=== PATIENT | male | born 1965 | race Caucasian/White ===

== ENCOUNTER 2016-03-08 14:21 | Emergency (ER) | payer OTHER ==
[~2016-03-08 14:21] MED LIST: /MOXI40TA PO; ADV250INH INH; ADV500INH INH; ADVA230A INH; ADVA230INH INH; ALBU17IN INH; ALBU20IN INH; ALBU83IN INH; ALBUTEROL NEBS INH; ASMANEX TWISTHALER INH; ASPI1TAB PO; ASPI325T PO; ATOR1TAB18 PO; ATOR80TA14 PO; AUGM500T34 PO; AUGM875T27 PO; AVEL1TAB PO; BACITAB3 PO; BUDEPOW INH; CELE10TA PO; CHAN0.5P6 PO; CITA20TA4 PO; CLAR1TAB2 PO; DOXY150C PO; DOXY75CA3 PO; DULE200A INH; FOLI1TAB86 PO; FURO40TA2 PO; HYDR1TAB97 PO; IBUP200T2 PO; IBUPOTC PO; IPRASOL4 INH; LASI40TA PO; LEVA750T PO; LEVO500T PO; MICR10CA PO; NICO14PA EXT; NICO21PAT TD; NORCOTAB PO; OCEA0.654; OMEP40CA2 PO; PERC5TAB PO; PERCOCET PO; PRED10PA2 PO; PRED10TA PO; PRED10TA2 PO; PRED20TA PO; PRED5SOL2 PO; PRED5TA PO; PRIL40CA PO; SALMDISK INH; TRAM50TA2 PO; TRAZ100T4 PO; TYLE325T5 PO; VENTAER INH; VITA-176 PO; VITA100T2 PO; VITA500047 PO; VITMTA PO; XANA0.5T PO; ZOLO50TA PO; spiriva INH
[2016-03-08 15:11] LABS: BASO # 0.1 K/mm3 (0.0-0.2); BASO % 1.1 % (0.0-1.0); EOS # 0.2 K/mm3 (0.0-0.50); LARGE UNSTAINED CELL # 0.1 K/mm3 (0.0-0.4); LARGE UNSTAINED CELL % 0.7 % (0.0-4.0); LYMPH # 0.9 K/mm3 (1.5-4.5); LYMPH % 6.7 % (24.0-44.0); MEAN CORPUSCULAR HEMOGLOBIN 29.8 pg (27.0-33.0); MEAN CORPUSCULAR HGB CONC 34.6 g/dl (32.0-36.5); MEAN CORPUSCULAR VOLUME 86.1 fl (80.0-96.0); MONO # 0.5 K/mm3 (0.0-0.8); MONO % 4.2 % (0.0-5.0); NEUTROPHILS # 10.2 K/mm3 (1.8-7.7); NEUTROPHILS % 85.2 % (36.0-66.0); PLATELET COUNT, AUTOMATED 151 k/mm3 (150-450); RED CELL DISTRIBUTION WIDTH 13.7 % (11.5-14.5)
[2016-03-08] MEDS ORDERED: ASPIRIN 325 MG TAB As Ordered ONE (15:19)
[2016-03-08 15:20] LABS: ANION GAP 8 MEQ/L (8-16); BLOOD UREA NITROGEN 20 MG/DL (7-18); CALCIUM LEVEL 9.1 MG/DL (8.5-10.1); CARBON DIOXIDE LEVEL 27 MEQ/L (21-32); CHLORIDE LEVEL 109 MEQ/L (98-107); CREATININE FOR GFR 1.08 MG/DL (0.70-1.30); GLOMERULAR FILTRATION RATE > 60.0 (>56); GLUCOSE, FASTING 130 MG/DL (70-105); POTASSIUM SERUM 4.5 MEQ/L (3.5-5.1); SODIUM LEVEL 144 MEQ/L (136-145)
[2016-03-08] MEDS ORDERED: IPRATROPIUM 0.5MG/ALBUTEROL 2.5MG INH SOL UD 3ML (DUONEB)(J7620) As Ordered ONE (15:20)
--- NOTE | 2016-03-08 15:44 | REP ---
Clinical: Shortness of breath . Comparison: 01/08/2016 . Technique: PA and lateral. Findings: The mediastinum and cardiac silhouette are normal. The lung colindres are clear and without acute consolidation, effusion, or pneumothorax. The skeletal structures are intact and normal. Impression: 1. No acute cardiopulmonary process. Signed by Nitesh Escobedo MD 03/08/2016 03:35 P
--- NOTE | 2016-03-08 17:49 | EDDOCDS ---
Physician Documentation [facility] Name: Hussain Cross Age: 51 yrs Sex: Male : 1965 Arrival Date: 03/08/2016 Time: 14:21 Bed 19 Private MD: Disposition: 03/08/16 17:22 Discharged to Home/Self Care. Impression: Nausea and vomiting, Illness, unspecified. - Condition is Stable. - Discharge Instructions: Nausea and Vomiting, Viral Infections. - Prescriptions for Zofran 4 mg Oral Tablet - take 1 tablet by ORAL route 4 times per day As needed; 10 tablet. - Medication Reconciliation, Local Pharmacy Hours form. - Follow up: Private Physician; When: 4 - 5 days; Reason: Recheck today's complaints, Continuance of care. - Problem is an ongoing problem. - Symptoms are unchanged. Historical: - Allergies: pulmicort inhaler (Swelling); - Home Meds: 1. Advair Diskus 250-50 mcg/dose Inhl dsdv 1 puff 2 times per day 2. albuterol sulfate 2.5 mg /3 mL (0.083 %) Inhl nebu 3 mL 4 times per day as needed 3. albuterol sulfate 90 mcg/actuation Inhl aepb 2 puffs every 4 hours as needed 4. atorvastatin 80 mg oral tab 1 tab once daily 5. aspirin 325 mg oral tab 1 tab once daily 6. omeprazole 20 mg Oral TbEC 20 mg daily 7. prednisone 10 mg Oral tab 1 tab once daily 8. [place] 5-325 mg Oral tab 1 tab every 4-6 hours as needed - PMHx: backpain; CHF; COPD; GERD; - PSHx: cardiac loop recorder; left ankle; Arthroscopy, Knee- Left; Arthroscopy, Knee- Right; - Social history: No barriers to communication noted, The patient speaks fluent [place], Smoking status: Patient uses tobacco products, current every day smoker. - Family history: Not pertinent. - : The pt / caregiver states he / she is not on anticoagulants. Home medication list is obtained from the patient. - Exposure Risk Screening:: None identified. Vital Signs: 03/08 14:23 BP 131 / 74; Pulse 57; Resp 28; Temp 97.1; Pulse Ox 100% ; Weight 122.47 kg / 270 lbs sar1 (R); Height 5 ft. 9 in. (175.26 cm) (R); Pain 8/10; 14:31 BP 114 / 71 (auto/); ms2 14:33 Pulse 80 MON; Resp 20 S; Pulse Ox 99% ; ms2 14:46 BP 114 / 74 (auto/); ms2 14:46 Pulse 82 MON; Resp 20 S; Pulse Ox 98% ; ms2 15:21 BP 137 / 70 (auto/); ms2 15:23 Pulse 76 MON; Resp 20 S; Pulse Ox 98% ; ms2 17:46 BP 112 / 61; Pulse 76; Resp 20 S; Temp 98.1(O); Pulse Ox 96% on R/A; ms2 14:23 Body Mass Index 39.87 (122.47 kg, 175.26 cm) sar1 MDM: 14:29 ECG WITH READING ER PHYS+CARDIAG ordered. EDMS 15:01 -Blood Culture (Adults Only), peripheral from different site, or from device/port/PICC ke etc. if present ordered. 15:01 Production Scheduler/Pulse Ox/q 15 min VS ordered. ke 15:01 IV Saline Lock ordered. ke 15:01 Rhythm Strip to chart ordered. ke 15:01 NS 0.9% 1000 ml IV at 100 mL/hr continuous ordered. ke 15:01 Albuterol-Ipratropium 3 ml Inhalation once ordered. ke 15:01 Call Respiratory ordered. ke 15:01 -Blood Culture Ordered. EDMS 15:02 B-Type Natiuretic Peptide Ordered. EDMS 15:02 Basic Metabolic Profile Ordered. EDMS 15:02 CBC with Diff Ordered. EDMS 15:02 Cardiac Injury Profile Ordered. EDMS 15:02 Troponin Ordered. EDMS 15:02 Chest, 2 View (pa\E\lat) Ordered. EDMS 15:04 Aspirin 325 mg PO once ordered. ke 15:15 -Blood Culture (Adults Only), peripheral from different site, or from device/port/PICC deg etc. if present complete. 15:16 Call Respiratory complete. deg 15:16 BLOOD CULTURES Ordered. EDMS 15:30 Financial registration complete. [email or web address] 15:31 [facility] Payment Agreement was scanned into Animating Touch and attached to record. [email or web address] 16:34 Basic Metabolic Profile Reviewed. ke 16:34 CBC with Diff Reviewed. ke 16:34 B-Type Natiuretic Peptide Reviewed. ke 16:34 Cardiac Injury Profile Reviewed. ke 16:34 Troponin Reviewed. ke 16:34 Chest, 2 View (pa\E\lat) Reviewed. ke Administered Medications: 15:10 Drug: Aspirin 325 mg [aspirin 325 mg tablet (1 tabs)] Route: PO; ms2 15:40 Drug: NS 0.9% 1000 ml [sodium chloride 0.9 % intravenous solution] Route: IV; Rate: 100 ms2 mL/hr; Site: right antecubital; 15:43 Drug: Albuterol-Ipratropium 3 ml [ipratropium-albuterol 0.5 mg-3 mg(2.5 mg base)/3 mL rs5 nebulization soln (3 mL)] Route: Inhalation; Signatures: Dispatcher MedHost EDMS Diana Ayala, Stoneworking Sander Unit deg Raman LeongRN RN ms2 Tab Garcia, SERVICE ASSOCIATE SERVICE ASSOCIATE Hussain Rock RN RN mlb1 Melida Henao, Reg Reg ks16 Jewel Cervantes RT rs5 The chart was reviewed and I authenticate all verbal orders and agree with the evaluation and treatment provided.Corrections: (The following items were deleted from the chart) 15:59 15:02 ARTERIAL BLOOD GAS+LAB ordered. EDMS EDMS 17:13 15:01 Oxygen at 4L/Min NC or Home dosage ordered. ms2 Attachments: 15:31 [facility] Payment Agreement ks16 MTDD
--- NOTE | 2016-03-08 17:49 | EDDOCDS ---
Nurse's Notes [facility] Name: Hussain Cross Age: 51 yrs Sex: Male : 1965 Arrival Date: 03/08/2016 Time: 14:21 Bed 19 Private MD: Diagnosis: Nausea and vomiting;Illness, unspecified Presentation: 03/08 14:27 Presenting complaint: Patient states: Chest pressure and SOB began at 1000 this am, mlb1 reports not feeling well for the past couple days with N/V/D. Adult Sepsis Screening: The patient does not have new or worsening altered mentation. Patient has a respiratory rate of greater than or equal to 22 (1 point). Systolic blood pressure is greater than 100. Patient has a qSOFA score of 1- Negative Sepsis Screen. Suicide/Homicide risk assessment- the patient denies having any suicidal and/or homicidal ideations and does not present with any other emotional, behavioral or mental health complaints. Status: Patient is not a patient services manager or dependent. Transition of care: patient was not received from another setting of care. Red Flag criteria, patient assessed and taken directly to a bed. 14:27 Acuity: MARCELA Level 2 mlb1 14:27 Method Of Arrival: Walkin/Carried/Asstd mlb1 Triage Assessment: 14:33 General: Appears distressed, Behavior is appropriate for age, cooperative. Pain: mlb1 Location: chest Pain currently is 8 out of 10 on a pain scale. Quality of pain is described as pressure. HIV screening NA for this visit Offered previously. Respiratory: Onset: The symptoms/episode began/occurred gradually, Airway is patent Respiratory effort is labored. Historical: - Allergies: pulmicort inhaler (Swelling); - Home Meds: 1. Advair Diskus 250-50 mcg/dose Inhl dsdv 1 puff 2 times per day 2. albuterol sulfate 2.5 mg /3 mL (0.083 %) Inhl nebu 3 mL 4 times per day as needed 3. albuterol sulfate 90 mcg/actuation Inhl aepb 2 puffs every 4 hours as needed 4. atorvastatin 80 mg oral tab 1 tab once daily 5. aspirin 325 mg oral tab 1 tab once daily 6. omeprazole 20 mg Oral TbEC 20 mg daily 7. prednisone 10 mg Oral tab 1 tab once daily 8. [place] 5-325 mg Oral tab 1 tab every 4-6 hours as needed - PMHx: backpain; CHF; COPD; GERD; - PSHx: cardiac loop recorder; left ankle; Arthroscopy, Knee- Left; Arthroscopy, Knee- Right; - Social history: No barriers to communication noted, The patient speaks fluent Canadian, Smoking status: Patient uses tobacco products, current every day smoker. - Family history: Not pertinent. - : The pt / caregiver states he / she is not on anticoagulants. Home medication list is obtained from the patient. - Exposure Risk Screening:: None identified. Screenin:14 Screening information is obtained from prior medical records. Fall risk: No risks ms2 identified. Assistance ADL's: requires no assistance with activities of daily living. Abuse/DV Screen: The patient / caregiver reports he/she is: not in a situation that causes fear, pain or injury. Nutritional screening: No deficits noted. Advance Directives: Currently, there is no health care proxy. There is no active DNR order. There is no living will. There is no Power of Tree Feller Operator. Advance directive information has not previously been placed in an [facility] medical record. Further advance directive information is declined. home support is adequate. Assessment: 15:00 General: Appears in no apparent distress, Behavior is anxious, pt hyperventilating ms2 -forcing air out thru mouth---nasally congested. Neurological: Level of Consciousness is awake, alert, obeys commands. Cardiovascular: Rhythm is sinus rhythm No ectopy. Respiratory: Airway is patent Respiratory effort is even, see above note harsh breath sounds bilaterally. GI: Abdomen is distended, obese. Derm: Skin is pink, warm & dry. Musculoskeletal: Range of motion intact in all extremities. 15:55 General: Appears in no apparent distress, pt lying on left side -nasally congested ms2 hyperventilating---pt instructed if he sits up higher it will assist in breathing easier. 16:20 General: Appears in no apparent distress, pt calm/relaxed and watching tv-breathing ms2 easy. Neurological: No deficits noted. Respiratory: No deficits noted. Derm: Skin is pink, warm & dry. Musculoskeletal: No deficits noted. 17:45 Adult Sepsis Screening: The patient does not have new or worsening altered mentation. ms2 Patient's respiratory rate is less than 22. Systolic blood pressure is greater than 100. Patient has a qSOFA score of 0- Negative Sepsis Screen. General: Appears in no apparent distress. Neurological: No deficits noted. Cardiovascular: Rhythm is sinus rhythm No ectopy. monitor will not print off strip--see previous strip. Respiratory: Respiratory effort is even, unlabored. Derm: Skin is pink, warm & dry. Musculoskeletal: No deficits noted. Vital Signs: 14:23 BP 131 / 74; Pulse 57; Resp 28; Temp 97.1; Pulse Ox 100% ; Weight 122.47 kg (R); Height sar1 5 ft. 9 in. (175.26 cm) (R); Pain 8/10; 14:31 BP 114 / 71 (auto/); ms2 14:33 Pulse 80 MON; Resp 20 S; Pulse Ox 99% ; ms2 14:46 BP 114 / 74 (auto/); ms2 14:46 Pulse 82 MON; Resp 20 S; Pulse Ox 98% ; ms2 15:21 BP 137 / 70 (auto/); ms2 15:23 Pulse 76 MON; Resp 20 S; Pulse Ox 98% ; ms2 17:46 BP 112 / 61; Pulse 76; Resp 20 S; Temp 98.1(O); Pulse Ox 96% on R/A; ms2 14:23 Body Mass Index 39.87 (122.47 kg, 175.26 cm) sar1 Vitals: 14:23 Log In Time: March 08, 2016 at 14:23. RN notified that patient meets Red Flag sar1 criteria. ED Course: 14:22 Patient visited by Sandie Combs Unit Clerk. sar1 14:22 Patient moved to Waiting sar1 14:25 Raman Leong,RN is Primary Nurse. sar1 14:25 Patient moved to 19 sar1 14:27 Patient visited by Hussain Ma, KAMILLE. mlb1 14:28 Triage Initiated mlb1 14:32 Patient visited by Raman Leong,KAMILLE. ms2 14:34 Patient visited by Hussain Ma, KAMILLE. mlb1 14:38 Tba Garcia FNP [facility]. ke 14:38 Patient visited by Tab Garcia FNP. ke 14:38 Patient visited by Tab Garcia FNP. ke 14:43 Patient visited by Ata Cool PCA. jrd 14:43 EKG done. (by ED staff). Reviewed by Tab ALAN. jrd 15:00 The patient / caregiver is instructed regarding the plan of care and ED course. Cardiac ms2 monitor on. Pulse ox on. NIBP on. 15:00 Inserted saline lock: 20 gauge in right antecubital area The patient tolerated the ms2 procedure well. No procedures done that require assistance. 15:06 Patient visited by Raman Leong,KAMILLE. ms2 15:31 [facility] Payment Agreement was scanned into MedShape and attached to record. ks16 15:35 Patient visited by Tab Garcia FNP. ke 15:50 BLOOD CULTURES Sent. ms2 15:56 Patient visited by Tab Garcia FNP. ke 16:01 Chest, 2 View (pa\E\lat) Returned. EDMS 16:20 Patient visited by Hakeem Bejarano PCA. jlf 16:51 Patient visited by Tab Garcia FNP. ke 17:21 Patient visited by Hakeem Bejarano PCA. jlf 17:32 Patient visited by Raman Leong,KAMILLE. ms2 17:43 Patient visited by Raman Leong RN. ms2 17:46 The patient / caregiver is instructed regarding the plan of care and ED course. monitor ms2 dc'd. 17:47 Discontinued IV intact, bleeding controlled, pressure dressing applied, No ms2 redness/swelling at site. Administered Medications: 15:10 Drug: Aspirin 325 mg [aspirin 325 mg tablet (1 tabs)] Route: PO; ms2 15:40 Drug: NS 0.9% 1000 ml [sodium chloride 0.9 % intravenous solution] Route: IV; Rate: 100 ms2 mL/hr; Site: right antecubital; 15:43 Drug: Albuterol-Ipratropium 3 ml [ipratropium-albuterol 0.5 mg-3 mg(2.5 mg base)/3 mL rs5 nebulization soln (3 mL)] Route: Inhalation; Intake: 17:44 PO: 60.00ml; IV: 200.00ml (NS); Total: 260.00ml. ms2 17:44 voided x1 in ed ms2 RT: 15:43 ABG's Patient Refused ABG. Initial Med Neb Given as ordered Patient was instructed and rs5 evaluated on procedure Patient tolerated procedure well without adverse effect. Respiratory: Breath sounds with wheezes bilaterally. Order Results: Lab Order: B-Type Natiuretic Peptide; SPEC'M 03/08/16 14:45 Test: BRAIN NATRIURETIC PEPTIDE; Value: 16.7; Range: <100; Units: PG/ML; Status: F Lab Order: Basic Metabolic Profile; SPEC'M 03/08/16 14:45 Test: GLUCOSE, FASTING; Value: 130; Range: 70-105; Abnormal: Above high normal; Units: MG/DL; Status: F Test: BLOOD UREA NITROGEN; Value: 20; Range: 7-18; Abnormal: Above high normal; Units: MG/DL; Status: F Test: CREATININE FOR GFR; Value: 1.08; Range: 0.70-1.30; Units: MG/DL; Status: F Test: GLOMERULAR FILTRATION RATE; Value: > 60.0; Range: >56; Status: F Test: SODIUM LEVEL; Value: 144; Range: 136-145; Units: MEQ/L; Status: F Test: POTASSIUM SERUM; Value: 4.5; Range: 3.5-5.1; Units: MEQ/L; Status: F Test: CHLORIDE LEVEL; Value: 109; Range: 98-107; Abnormal: Above high normal; Units: MEQ/L; Status: F Test: CARBON DIOXIDE LEVEL; Value: 27; Range: 21-32; Units: MEQ/L; Status: F Test: ANION GAP; Value: 8; Range: 8-16; Units: MEQ/L; Status: F Test: CALCIUM LEVEL; Value: 9.1; Range: 8.5-10.1; Units: MG/DL; Status: F Test Note: ; Units are mL/min/1.73 m2 Chronic Kidney Disease Staging per NKF: Stage I & II GFR >=60 Normal to Mildly Decreased Stage III GFR 30-59 Moderately Decreased Stage IV GFR 15-29 Severely Decreased Stage V GFR <15 Very Little GFR Left ESRD GFR <15 on EXERCISE INSTRUCT Lab Order: CBC with Diff; SPEC'M 03/08/16 14:45 Test: WHITE BLOOD COUNT; Value: 12.0; Range: 4.0-10.0; Abnormal: Above high normal; Units: K/mm3; Status: F Test: RED BLOOD COUNT; Value: 5.30; Range: 4.30-6.10; Units: M/mm3; Status: F Test: HEMOGLOBIN; Value: 15.8; Range: 14.0-18.0; Units: g/dl; Status: F Test: HEMATOCRIT; Value: 45.6; Range: 42.0-52.0; Units: %; Status: F Test: MEAN CORPUSCULAR VOLUME; Value: 86.1; Range: 80.0-96.0; Units: fl; Status: F Test: MEAN CORPUSCULAR HEMOGLOBIN; Value: 29.8; Range: 27.0-33.0; Units: pg; Status: F Test: MEAN CORPUSCULAR HGB CONC; Value: 34.6; Range: 32.0-36.5; Units: g/dl; Status: F Test: RED CELL DISTRIBUTION WIDTH; Value: 13.7; Range: 11.5-14.5; Units: %; Status: F Test: PLATELET COUNT, AUTOMATED; Value: 151; Range: 150-450; Units: k/mm3; Status: F Test: NEUTROPHILS %; Value: 85.2; Range: 36.0-66.0; Abnormal: Above high normal; Units: %; Status: F Test: LYMPH %; Value: 6.7; Range: 24.0-44.0; Abnormal: Below low normal; Units: %; Status: F Test: MONO %; Value: 4.2; Range: 0.0-5.0; Units: %; Status: F Test: EOS %; Value: 2.0; Range: 0.0-3.0; Units: %; Status: F Test: BASO %; Value: 1.1; Range: 0.0-1.0; Abnormal: Above high normal; Units: %; Status: F Test: LARGE UNSTAINED CELL %; Value: 0.7; Range: 0.0-4.0; Units: %; Status: F Test: NEUTROPHILS #; Value: 10.2; Range: 1.8-7.7; Abnormal: Above high normal; Units: K/mm3; Status: F Test: LYMPH #; Value: 0.9; Range: 1.5-4.5; Abnormal: Below low normal; Units: K/mm3; Status: F Test: MONO #; Value: 0.5; Range: 0.0-0.8; Units: K/mm3; Status: F Test: EOS #; Value: 0.2; Range: 0.0-0.50; Units: K/mm3; Status: F Test: BASO #; Value: 0.1; Range: 0.0-0.2; Units: K/mm3; Status: F Test: LARGE UNSTAINED CELL #; Value: 0.1; Range: 0.0-0.4; Units: K/mm3; Status: F Lab Order: Cardiac Injury Profile; SPEC'M 03/08/16 14:45 Test: CPK CREATINE PHOSPHOKINASE; Value: 130; Range: 39-308; Units: U/L; Status: F Test: CK-MB VALUE MASS; Value: 1.0; Range: 0.0-3.6; Units: NG/ML; Status: F Test: MB/CK RELATIVE INDEX; Value: 0.76; Range: < OR =4; Status: F Test Note: ; DIAGNOSIS CRITERIA MMB ng/ml Relative Index (RI) NON-AMI < or = 5 N/A TENA ZONE > 5 < or = 4 AMI > 5 > 4 Lab Order: Troponin; SPEC'M 03/08/16 14:45 Test: TROPONIN I; Value: < 0.02; Range: < 0.10; Units: NG/ML; Status: F Test Note: ; Troponin I Reference Interval for [employer] LOCI: 99th Percentile= 0.00-0.045 ng/ml Risk Stratification: <= 0.10 ng/ml Decreased Risk for Adverse Clinical Events. 0.10-1.50 ng/ml Increased Risk for Adverse Clinical Events. Evaluation of additional criterion and/or repeat testing in 2-6 hours is suggested to rule out myocardial damage. >= 1.50 ng/ml Indicative of Myocardial Injury. Radiology Order: Chest, 2 View (pa\E\lat) Test: Chest, 2 View (pa\E\lat) REASON FOR EXAMINATION: Shortness of Breath; Clinical: Shortness of breath .; ; Comparison: 01/08/2016 .; ; Technique: PA and lateral.; ; Findings:; The mediastinum and cardiac silhouette are normal. The lung colindres are clear and; without acute consolidation, effusion, or pneumothorax. The skeletal structures; are intact and normal.; ; Impression:; 1. No acute cardiopulmonary process.; ; ; Signed by; Nitesh Escobedo MD 03/08/2016 03:35 P; Outcome: 17:22 Discharge ordered by Provider. chayo 17:47 Discharge Assessment: patient administered narcotics - no. The following High Risk ms2 Discharge criteria are identified: None. Discharged to home ambulatory. Condition: stable. Discharge instructions given to patient, Instructed on discharge instructions, follow up and referral plans. medication usage, Demonstrated understanding of instructions, medications, Pt was receptive of discharge instructions/ teaching. Prescriptions given X one faxed. No special radiology studies were completed. Property sent home with patient. 17:48 Patient left the ED. ms2 Signatures: Dispatcher MedHost EDMS Raman Leong,RN RN ms2 Tab Garcia, DIRECTOR SECURITY MANAGEMENT DIRECTOR SECURITY MANAGEMENT Hussain Rock RN RN mlb1 Jewel Cervantes,RT RT rs5 Hakeem Bejarano, HOSPITAL INTERN HOSPITAL INTERN Sandie Clarke, Motion Picture Photographer Unit sarAta Haile, HOSPITAL INTERN HOSPITAL INTERN Melida Ruiz, Reg Reg [email or web address] MTDD
--- NOTE | 2016-03-09 10:02 | ECGEPIP ---
Stationary ECG Study [facility] - ED Test Date: 2016-03-08 Pat Name: STEPH MCKEON Department: Room: - Gender: M Certified Wellness Program Coordinator: vivian : 1965 Requested By: Soumya Cohn Order Number: [id number] Reading MD: Soumya Cohn Measurements Intervals [place] Rate: 86 P: 37 WI: 165 QRS: 54 QRSD: 82 T: 44 QT: 353 QTc: 424 Interpretive Statements SINUS RHYTHM NSTTW ABNORMALITY VS BASELINE ARTIFACT Electronically Signed On 03-09-2016 10:01:45 EST by Soumya Cohn
--- NOTE | 2016-03-10 18:49 | EDDOCDS ---
Physician Documentation [facility] Name: Hussain Cross Age: 51 yrs Sex: Male : 1965 Arrival Date: 03/08/2016 Time: 14:21 Bed 19 Private MD: Disposition: 03/08/16 17:22 Discharged to Home/Self Care. Impression: Nausea and vomiting, Illness, unspecified. - Condition is Stable. - Discharge Instructions: Nausea and Vomiting, Viral Infections. - Prescriptions for Zofran 4 mg Oral Tablet - take 1 tablet by ORAL route 4 times per day As needed; 10 tablet. - Medication Reconciliation, Local Pharmacy Hours form. - Follow up: Private Physician; When: 4 - 5 days; Reason: Recheck today's complaints, Continuance of care. - Problem is an ongoing problem. - Symptoms are unchanged. Historical: - Allergies: pulmicort inhaler (Swelling); - Home Meds: 1. Advair Diskus 250-50 mcg/dose Inhl dsdv 1 puff 2 times per day 2. albuterol sulfate 2.5 mg /3 mL (0.083 %) Inhl nebu 3 mL 4 times per day as needed 3. albuterol sulfate 90 mcg/actuation Inhl aepb 2 puffs every 4 hours as needed 4. atorvastatin 80 mg oral tab 1 tab once daily 5. aspirin 325 mg oral tab 1 tab once daily 6. omeprazole 20 mg Oral TbEC 20 mg daily 7. prednisone 10 mg Oral tab 1 tab once daily 8. [place] 5-325 mg Oral tab 1 tab every 4-6 hours as needed - PMHx: backpain; CHF; COPD; GERD; - PSHx: cardiac loop recorder; left ankle; Arthroscopy, Knee- Left; Arthroscopy, Knee- Right; - Social history: No barriers to communication noted, The patient speaks fluent Stateless, Smoking status: Patient uses tobacco products, current every day smoker. - Family history: Not pertinent. - : The pt / caregiver states he / she is not on anticoagulants. Home medication list is obtained from the patient. - Exposure Risk Screening:: None identified. Vital Signs: 03/08 14:23 BP 131 / 74; Pulse 57; Resp 28; Temp 97.1; Pulse Ox 100% ; Weight 122.47 kg / 270 lbs sar1 (R); Height 5 ft. 9 in. (175.26 cm) (R); Pain 8/10; 14:31 BP 114 / 71 (auto/); ms2 14:33 Pulse 80 MON; Resp 20 S; Pulse Ox 99% ; ms2 14:46 BP 114 / 74 (auto/); ms2 14:46 Pulse 82 MON; Resp 20 S; Pulse Ox 98% ; ms2 15:21 BP 137 / 70 (auto/); ms2 15:23 Pulse 76 MON; Resp 20 S; Pulse Ox 98% ; ms2 17:46 BP 112 / 61; Pulse 76; Resp 20 S; Temp 98.1(O); Pulse Ox 96% on R/A; ms2 14:23 Body Mass Index 39.87 (122.47 kg, 175.26 cm) sar1 MDM: 14:29 ECG WITH READING ER PHYS+CARDIAG ordered. EDMS 15:01 -Blood Culture (Adults Only), peripheral from different site, or from device/port/PICC ke etc. if present ordered. 15:01 Director Of Human Resources/Pulse Ox/q 15 min VS ordered. ke 15:01 IV Saline Lock ordered. ke 15:01 Rhythm Strip to chart ordered. ke 15:01 NS 0.9% 1000 ml IV at 100 mL/hr continuous ordered. ke 15:01 Albuterol-Ipratropium 3 ml Inhalation once ordered. ke 15:01 Call Respiratory ordered. ke 15:01 -Blood Culture Ordered. EDMS 15:02 B-Type Natiuretic Peptide Ordered. EDMS 15:02 Basic Metabolic Profile Ordered. EDMS 15:02 CBC with Diff Ordered. EDMS 15:02 Cardiac Injury Profile Ordered. EDMS 15:02 Troponin Ordered. EDMS 15:02 Chest, 2 View (pa\E\lat) Ordered. EDMS 15:04 Aspirin 325 mg PO once ordered. ke 15:15 -Blood Culture (Adults Only), peripheral from different site, or from device/port/PICC deg etc. if present complete. 15:16 Call Respiratory complete. deg 15:16 BLOOD CULTURES Ordered. EDMS 15:30 Financial registration complete. [email or web address] 15:31 [facility] Payment Agreement was scanned into CitiSent and attached to record. [email or web address] 16:34 Basic Metabolic Profile Reviewed. ke 16:34 CBC with Diff Reviewed. ke 16:34 B-Type Natiuretic Peptide Reviewed. ke 16:34 Cardiac Injury Profile Reviewed. ke 16:34 Troponin Reviewed. ke 16:34 Chest, 2 View (pa\E\lat) Reviewed. 03/09 06:36 T-Sheet-- Draft Copy was scanned into CitiSent and attached to record. hs2 10:44 ECG/EKG was scanned into [employer]ooo[employer] and attached to record. gb 10:45 Trend VS was scanned into MEDHOST and attached to record. gb Administered Medications: 03/08 15:10 Drug: Aspirin 325 mg [aspirin 325 mg tablet (1 tabs)] Route: PO; ms2 15:40 Drug: NS 0.9% 1000 ml [sodium chloride 0.9 % intravenous solution] Route: IV; Rate: 100 ms2 mL/hr; Site: right antecubital; 15:43 Drug: Albuterol-Ipratropium 3 ml [ipratropium-albuterol 0.5 mg-3 mg(2.5 mg base)/3 mL rs5 nebulization soln (3 mL)] Route: Inhalation; Signatures: Dispatcher MedHost EDDiana Sanches, [place] Pumper Unit deg Raman Leong RN RN ms2 Darling Valero, Reg Reg gb Tab Garcia, PROFESSOR OF SPORT MANAGEMENT PROFESSOR OF SPORT MANAGEMENT Hussain Rock RN RN mlb1 Melida Henao, Reg Reg ks16 Lydia Camacho, Reg Reg hs2 Jewel Cervantes RT rs5 The chart was reviewed and I authenticate all verbal orders and agree with the evaluation and treatment provided.Corrections: (The following items were deleted from the chart) 15:59 15:02 ARTERIAL BLOOD GAS+LAB ordered. EDMS EDMS 17:13 15:01 Oxygen at 4L/Min NC or Home dosage ordered. ms2 Attachments: 15:31 [facility] Payment Agreement [email or web address] 03/09 06:36 T-Sheet-- Draft Copy hs2 10:44 ECG/EKG gb Chart Complete MTDD
--- NOTE | 2016-03-10 18:49 | EDDOCDS ---
Nurse's Notes [facility] Name: Hussain Mckeon Age: 51 yrs Sex: Male : 1965 Arrival Date: 03/08/2016 Time: 14:21 Bed 19 Private MD: Diagnosis: Nausea and vomiting;Illness, unspecified Presentation: 03/08 14:27 Presenting complaint: Patient states: Chest pressure and SOB began at 1000 this am, mlb1 reports not feeling well for the past couple days with N/V/D. Adult Sepsis Screening: The patient does not have new or worsening altered mentation. Patient has a respiratory rate of greater than or equal to 22 (1 point). Systolic blood pressure is greater than 100. Patient has a qSOFA score of 1- Negative Sepsis Screen. Suicide/Homicide risk assessment- the patient denies having any suicidal and/or homicidal ideations and does not present with any other emotional, behavioral or mental health complaints. Status: Patient is not a data services developer or dependent. Transition of care: patient was not received from another setting of care. Red Flag criteria, patient assessed and taken directly to a bed. 14:27 Acuity: MARCELA Level 2 mlb1 14:27 Method Of Arrival: Walkin/Carried/Asstd mlb1 Triage Assessment: 14:33 General: Appears distressed, Behavior is appropriate for age, cooperative. Pain: mlb1 Location: chest Pain currently is 8 out of 10 on a pain scale. Quality of pain is described as pressure. HIV screening NA for this visit Offered previously. Respiratory: Onset: The symptoms/episode began/occurred gradually, Airway is patent Respiratory effort is labored. Historical: - Allergies: pulmicort inhaler (Swelling); - Home Meds: 1. Advair Diskus 250-50 mcg/dose Inhl dsdv 1 puff 2 times per day 2. albuterol sulfate 2.5 mg /3 mL (0.083 %) Inhl nebu 3 mL 4 times per day as needed 3. albuterol sulfate 90 mcg/actuation Inhl aepb 2 puffs every 4 hours as needed 4. atorvastatin 80 mg oral tab 1 tab once daily 5. aspirin 325 mg oral tab 1 tab once daily 6. omeprazole 20 mg Oral TbEC 20 mg daily 7. prednisone 10 mg Oral tab 1 tab once daily 8. [place] 5-325 mg Oral tab 1 tab every 4-6 hours as needed - PMHx: backpain; CHF; COPD; GERD; - PSHx: cardiac loop recorder; left ankle; Arthroscopy, Knee- Left; Arthroscopy, Knee- Right; - Social history: No barriers to communication noted, The patient speaks fluent Jamaican, Smoking status: Patient uses tobacco products, current every day smoker. - Family history: Not pertinent. - : The pt / caregiver states he / she is not on anticoagulants. Home medication list is obtained from the patient. - Exposure Risk Screening:: None identified. Screenin:14 Screening information is obtained from prior medical records. Fall risk: No risks ms2 identified. Assistance ADL's: requires no assistance with activities of daily living. Abuse/DV Screen: The patient / caregiver reports he/she is: not in a situation that causes fear, pain or injury. Nutritional screening: No deficits noted. Advance Directives: Currently, there is no health care proxy. There is no active DNR order. There is no living will. There is no Power of Training And Development Manager. Advance directive information has not previously been placed in an [facility] medical record. Further advance directive information is declined. home support is adequate. Assessment: 15:00 General: Appears in no apparent distress, Behavior is anxious, pt hyperventilating ms2 -forcing air out thru mouth---nasally congested. Neurological: Level of Consciousness is awake, alert, obeys commands. Cardiovascular: Rhythm is sinus rhythm No ectopy. Respiratory: Airway is patent Respiratory effort is even, see above note harsh breath sounds bilaterally. GI: Abdomen is distended, obese. Derm: Skin is pink, warm & dry. Musculoskeletal: Range of motion intact in all extremities. 15:55 General: Appears in no apparent distress, pt lying on left side -nasally congested ms2 hyperventilating---pt instructed if he sits up higher it will assist in breathing easier. 16:20 General: Appears in no apparent distress, pt calm/relaxed and watching tv-breathing ms2 easy. Neurological: No deficits noted. Respiratory: No deficits noted. Derm: Skin is pink, warm & dry. Musculoskeletal: No deficits noted. 17:45 Adult Sepsis Screening: The patient does not have new or worsening altered mentation. ms2 Patient's respiratory rate is less than 22. Systolic blood pressure is greater than 100. Patient has a qSOFA score of 0- Negative Sepsis Screen. General: Appears in no apparent distress. Neurological: No deficits noted. Cardiovascular: Rhythm is sinus rhythm No ectopy. monitor will not print off strip--see previous strip. Respiratory: Respiratory effort is even, unlabored. Derm: Skin is pink, warm & dry. Musculoskeletal: No deficits noted. Vital Signs: 14:23 BP 131 / 74; Pulse 57; Resp 28; Temp 97.1; Pulse Ox 100% ; Weight 122.47 kg (R); Height sar1 5 ft. 9 in. (175.26 cm) (R); Pain 8/10; 14:31 BP 114 / 71 (auto/); ms2 14:33 Pulse 80 MON; Resp 20 S; Pulse Ox 99% ; ms2 14:46 BP 114 / 74 (auto/); ms2 14:46 Pulse 82 MON; Resp 20 S; Pulse Ox 98% ; ms2 15:21 BP 137 / 70 (auto/); ms2 15:23 Pulse 76 MON; Resp 20 S; Pulse Ox 98% ; ms2 17:46 BP 112 / 61; Pulse 76; Resp 20 S; Temp 98.1(O); Pulse Ox 96% on R/A; ms2 14:23 Body Mass Index 39.87 (122.47 kg, 175.26 cm) sar1 Vitals: 14:23 Log In Time: March 08, 2016 at 14:23. RN notified that patient meets Red Flag sar1 criteria. ED Course: 14:22 Patient visited by Sandie Combs Unit Clerk. sar1 14:22 Patient moved to Waiting sar1 14:25 Raman Leong,RN is Primary Nurse. sar1 14:25 Patient moved to 19 sar1 14:27 Patient visited by Hussain Ma, KAMILLE. mlb1 14:28 Triage Initiated mlb1 14:32 Patient visited by Raman Leong,KAMILLE. ms2 14:34 Patient visited by Hussain Ma, KAMILLE. mlb1 14:38 [facility]. ke 14:38 Patient visited by Tab Garcia FNP. ke 14:38 Patient visited by Tab Garcia FNP. ke 14:43 Patient visited by Ata Cool PCA. jrd 14:43 EKG done. (by ED staff). Reviewed by Tab ALAN. jrd 15:00 The patient / caregiver is instructed regarding the plan of care and ED course. Cardiac ms2 monitor on. Pulse ox on. NIBP on. 15:00 Inserted saline lock: 20 gauge in right antecubital area The patient tolerated the ms2 procedure well. No procedures done that require assistance. 15:06 Patient visited by Raman Leong,KAMILLE. ms2 15:31 [facility] Payment Agreement was scanned into [employer] and attached to record. ks16 15:35 Patient visited by Tab Garcia FNP. ke 15:50 BLOOD CULTURES Sent. ms2 15:56 Patient visited by Tab Garcia FNP. ke 16:01 Chest, 2 View (pa\E\lat) Returned. EDMS 16:20 Patient visited by Hakeem Bejarano PCA. jlf 16:51 Patient visited by Tab Garcia FNP. ke 17:21 Patient visited by Hakeem Bejarano PCA. jlf 17:32 Patient visited by Raman Leong,KAMILLE. ms2 17:43 Patient visited by Raman Leong,KAMILLE. ms2 17:46 The patient / caregiver is instructed regarding the plan of care and ED course. monitor ms2 dc'd. 17:47 Discontinued IV intact, bleeding controlled, pressure dressing applied, No ms2 redness/swelling at site. 03/09 06:36 T-Sheet-- Draft Copy was scanned into [employer] and attached to record. hs2 10:20 EKG-ADULT Returned. EDMS 10:44 ECG/EKG was scanned into [employer] and attached to record. gb 10:45 Trend VS was scanned into [employer] and attached to record. gb Administered Medications: 03/08 15:10 Drug: Aspirin 325 mg [aspirin 325 mg tablet (1 tabs)] Route: PO; ms2 15:40 Drug: NS 0.9% 1000 ml [sodium chloride 0.9 % intravenous solution] Route: IV; Rate: 100 ms2 mL/hr; Site: right antecubital; 15:43 Drug: Albuterol-Ipratropium 3 ml [ipratropium-albuterol 0.5 mg-3 mg(2.5 mg base)/3 mL rs5 nebulization soln (3 mL)] Route: Inhalation; Attachments: 10:45 Trend VS gb Intake: 03/08 17:44 PO: 60.00ml; IV: 200.00ml (NS); Total: 260.00ml. ms2 17:44 voided x1 in ed ms2 RT: 15:43 ABG's Patient Refused ABG. Initial Med Neb Given as ordered Patient was instructed and rs5 evaluated on procedure Patient tolerated procedure well without adverse effect. Respiratory: Breath sounds with wheezes bilaterally. Order Results: Lab Order: -Blood Culture; SPEC'M 03/08/16 15:28 Test: BLOOD CULTURE; Value: No growth after 24 hours . All specimens observed; Status: F Test: BLOOD CULTURE; Value: for 5 days. Results final at that time.; Status: F Test: BLOOD CULTURE; Value: No Growth after 48 hours. All Specimens observed; Status: F Test: BLOOD CULTURE; Value: for 7 days. Results final at that time.; Status: F Lab Order: B-Type Natiuretic Peptide; SPEC'M 03/08/16 14:45 Test: BRAIN NATRIURETIC PEPTIDE; Value: 16.7; Range: <100; Units: PG/ML; Status: F Lab Order: Basic Metabolic Profile; SPEC'M 03/08/16 14:45 Test: GLUCOSE, FASTING; Value: 130; Range: 70-105; Abnormal: Above high normal; Units: MG/DL; Status: F Test: BLOOD UREA NITROGEN; Value: 20; Range: 7-18; Abnormal: Above high normal; Units: MG/DL; Status: F Test: CREATININE FOR GFR; Value: 1.08; Range: 0.70-1.30; Units: MG/DL; Status: F Test: GLOMERULAR FILTRATION RATE; Value: > 60.0; Range: >56; Status: F Test: SODIUM LEVEL; Value: 144; Range: 136-145; Units: MEQ/L; Status: F Test: POTASSIUM SERUM; Value: 4.5; Range: 3.5-5.1; Units: MEQ/L; Status: F Test: CHLORIDE LEVEL; Value: 109; Range: 98-107; Abnormal: Above high normal; Units: MEQ/L; Status: F Test: CARBON DIOXIDE LEVEL; Value: 27; Range: 21-32; Units: MEQ/L; Status: F Test: ANION GAP; Value: 8; Range: 8-16; Units: MEQ/L; Status: F Test: CALCIUM LEVEL; Value: 9.1; Range: 8.5-10.1; Units: MG/DL; Status: F Test Note: ; Units are mL/min/1.73 m2 Chronic Kidney Disease Staging per NKF: Stage I & II GFR >=60 Normal to Mildly Decreased Stage III GFR 30-59 Moderately Decreased Stage IV GFR 15-29 Severely Decreased Stage V GFR <15 Very Little GFR Left ESRD GFR <15 on [employer]ANCH[employer] FIELD CONSULTANT Lab Order: CBC with Diff; SPEC'M 03/08/16 14:45 Test: WHITE BLOOD COUNT; Value: 12.0; Range: 4.0-10.0; Abnormal: Above high normal; Units: K/mm3; Status: F Test: RED BLOOD COUNT; Value: 5.30; Range: 4.30-6.10; Units: M/mm3; Status: F Test: HEMOGLOBIN; Value: 15.8; Range: 14.0-18.0; Units: g/dl; Status: F Test: HEMATOCRIT; Value: 45.6; Range: 42.0-52.0; Units: %; Status: F Test: MEAN CORPUSCULAR VOLUME; Value: 86.1; Range: 80.0-96.0; Units: fl; Status: F Test: MEAN CORPUSCULAR HEMOGLOBIN; Value: 29.8; Range: 27.0-33.0; Units: pg; Status: F Test: MEAN CORPUSCULAR HGB CONC; Value: 34.6; Range: 32.0-36.5; Units: g/dl; Status: F Test: RED CELL DISTRIBUTION WIDTH; Value: 13.7; Range: 11.5-14.5; Units: %; Status: F Test: PLATELET COUNT, AUTOMATED; Value: 151; Range: 150-450; Units: k/mm3; Status: F Test: NEUTROPHILS %; Value: 85.2; Range: 36.0-66.0; Abnormal: Above high normal; Units: %; Status: F Test: LYMPH %; Value: 6.7; Range: 24.0-44.0; Abnormal: Below low normal; Units: %; Status: F Test: MONO %; Value: 4.2; Range: 0.0-5.0; Units: %; Status: F Test: EOS %; Value: 2.0; Range: 0.0-3.0; Units: %; Status: F Test: BASO %; Value: 1.1; Range: 0.0-1.0; Abnormal: Above high normal; Units: %; Status: F Test: LARGE UNSTAINED CELL %; Value: 0.7; Range: 0.0-4.0; Units: %; Status: F Test: NEUTROPHILS #; Value: 10.2; Range: 1.8-7.7; Abnormal: Above high normal; Units: K/mm3; Status: F Test: LYMPH #; Value: 0.9; Range: 1.5-4.5; Abnormal: Below low normal; Units: K/mm3; Status: F Test: MONO #; Value: 0.5; Range: 0.0-0.8; Units: K/mm3; Status: F Test: EOS #; Value: 0.2; Range: 0.0-0.50; Units: K/mm3; Status: F Test: BASO #; Value: 0.1; Range: 0.0-0.2; Units: K/mm3; Status: F Test: LARGE UNSTAINED CELL #; Value: 0.1; Range: 0.0-0.4; Units: K/mm3; Status: F Lab Order: Cardiac Injury Profile; SPEC'M 03/08/16 14:45 Test: CPK CREATINE PHOSPHOKINASE; Value: 130; Range: 39-308; Units: U/L; Status: F Test: CK-MB VALUE MASS; Value: 1.0; Range: 0.0-3.6; Units: NG/ML; Status: F Test: MB/CK RELATIVE INDEX; Value: 0.76; Range: < OR =4; Status: F Test Note: ; DIAGNOSIS CRITERIA MMB ng/ml Relative Index (RI) NON-AMI < or = 5 N/A TENA ZONE > 5 < or = 4 AMI > 5 > 4 Lab Order: Troponin; SPEC'M 03/08/16 14:45 Test: TROPONIN I; Value: < 0.02; Range: < 0.10; Units: NG/ML; Status: F Test Note: ; Troponin I Reference Interval for Siemens [place] LOCI: 99th Percentile= 0.00-0.045 ng/ml Risk Stratification: <= 0.10 ng/ml Decreased Risk for Adverse Clinical Events. 0.10-1.50 ng/ml Increased Risk for Adverse Clinical Events. Evaluation of additional criterion and/or repeat testing in 2-6 hours is suggested to rule out myocardial damage. >= 1.50 ng/ml Indicative of Myocardial Injury. Lab Order: BLOOD CULTURES; SPEC'M 03/08/16 15:44 Test: BLOOD CULTURE; Value: No growth after 24 hours . All specimens observed; Status: F Test: BLOOD CULTURE; Value: for 5 days. Results final at that time.; Status: F Test: BLOOD CULTURE; Value: No Growth after 48 hours. All Specimens observed; Status: F Test: BLOOD CULTURE; Value: for 7 days. 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; : 1965 Requested By: Soumya Cohn; Order Number: [id number] Reading MD: Soumya Cohn; Measurements; Intervals [place]; Rate: 86 P: 37; LA: 165 QRS: 54; QRSD: 82 T: 44; QT: 353; QTc: 424; Interpretive Statements; SINUS RHYTHM; NSTTW ABNORMALITY VS BASELINE ARTIFACT; Electronically Signed On 03-09-2016 10:01:45 EST by Soumya Cohn; Radiology Order: Chest, 2 View (pa\E\lat) Test: Chest, 2 View (pa\E\lat) REASON FOR EXAMINATION: Shortness of Breath; Clinical: Shortness of breath .; ; Comparison: 01/08/2016 .; ; Technique: PA and lateral.; ; Findings:; The mediastinum and cardiac silhouette are normal. The lung colindres are clear and; without acute consolidation, effusion, or pneumothorax. The skeletal structures; are intact and normal.; ; Impression:; 1. No acute cardiopulmonary process.; ; ; Signed by; Nitesh Escobedo MD 03/08/2016 03:35 P; Outcome: 17:22 Discharge ordered by Provider. chayo 17:47 Discharge Assessment: patient administered narcotics - no. The following High Risk ms2 Discharge criteria are identified: None. Discharged to home ambulatory. Condition: stable. Discharge instructions given to patient, Instructed on discharge instructions, follow up and referral plans. medication usage, Demonstrated understanding of instructions, medications, Pt was receptive of discharge instructions/ teaching. Prescriptions given X one faxed. No special radiology studies were completed. Property sent home with patient. 17:48 Patient left the ED. ms2 Signatures: Dispatcher [employer] EDMS Raman Leong,RN RN ms2 Darling Valero, Reg Reg gb Tab Garcia, CLIENT EXPERIENCE MANAGER CLIENT EXPERIENCE MANAGER Hussain Rock RN RN mlb1 Jewel Cervantes,RT RT rs5 Hakeem Bejarano, OPTICAL INSTRUMENT ASSEMBLY SUPERVISOR OPTICAL INSTRUMENT ASSEMBLY SUPERVISOR jlSandie Goodrich, Venetian Blind Washer Unit sar1 Ata Cool, OPTICAL INSTRUMENT ASSEMBLY SUPERVISOR OPTICAL INSTRUMENT ASSEMBLY SUPERVISOR Melida Ruiz, Reg Reg ks16 Lydia Camacho, Reg Reg hs2 Chart Complete MTDD
--- NOTE | 2016-03-10 18:49 | EDDOCDS ---
Physician Documentation [facility] Name: Hussain Cross Age: 51 yrs Sex: Male : 1965 Arrival Date: 03/08/2016 Time: 14:21 Bed 19 Private MD: Disposition: 03/08/16 17:22 Discharged to Home/Self Care. Impression: Nausea and vomiting, Illness, unspecified. - Condition is Stable. - Discharge Instructions: Nausea and Vomiting, Viral Infections. - Prescriptions for Zofran 4 mg Oral Tablet - take 1 tablet by ORAL route 4 times per day As needed; 10 tablet. - Medication Reconciliation, Local Pharmacy Hours form. - Follow up: Private Physician; When: 4 - 5 days; Reason: Recheck today's complaints, Continuance of care. - Problem is an ongoing problem. - Symptoms are unchanged. Historical: - Allergies: pulmicort inhaler (Swelling); - Home Meds: 1. Advair Diskus 250-50 mcg/dose Inhl dsdv 1 puff 2 times per day 2. albuterol sulfate 2.5 mg /3 mL (0.083 %) Inhl nebu 3 mL 4 times per day as needed 3. albuterol sulfate 90 mcg/actuation Inhl aepb 2 puffs every 4 hours as needed 4. atorvastatin 80 mg oral tab 1 tab once daily 5. aspirin 325 mg oral tab 1 tab once daily 6. omeprazole 20 mg Oral TbEC 20 mg daily 7. prednisone 10 mg Oral tab 1 tab once daily 8. [place] 5-325 mg Oral tab 1 tab every 4-6 hours as needed - PMHx: backpain; CHF; COPD; GERD; - PSHx: cardiac loop recorder; left ankle; Arthroscopy, Knee- Left; Arthroscopy, Knee- Right; - Social history: No barriers to communication noted, The patient speaks fluent Vietnamese, Smoking status: Patient uses tobacco products, current every day smoker. - Family history: Not pertinent. - : The pt / caregiver states he / she is not on anticoagulants. Home medication list is obtained from the patient. - Exposure Risk Screening:: None identified. Vital Signs: 03/08 14:23 BP 131 / 74; Pulse 57; Resp 28; Temp 97.1; Pulse Ox 100% ; Weight 122.47 kg / 270 lbs sar1 (R); Height 5 ft. 9 in. (175.26 cm) (R); Pain 8/10; 14:31 BP 114 / 71 (auto/); ms2 14:33 Pulse 80 MON; Resp 20 S; Pulse Ox 99% ; ms2 14:46 BP 114 / 74 (auto/); ms2 14:46 Pulse 82 MON; Resp 20 S; Pulse Ox 98% ; ms2 15:21 BP 137 / 70 (auto/); ms2 15:23 Pulse 76 MON; Resp 20 S; Pulse Ox 98% ; ms2 17:46 BP 112 / 61; Pulse 76; Resp 20 S; Temp 98.1(O); Pulse Ox 96% on R/A; ms2 14:23 Body Mass Index 39.87 (122.47 kg, 175.26 cm) sar1 MDM: 14:29 ECG WITH READING ER PHYS+CARDIAG ordered. EDMS 15:01 -Blood Culture (Adults Only), peripheral from different site, or from device/port/PICC ke etc. if present ordered. 15:01 Kst Operator/Pulse Ox/q 15 min VS ordered. ke 15:01 IV Saline Lock ordered. ke 15:01 Rhythm Strip to chart ordered. ke 15:01 NS 0.9% 1000 ml IV at 100 mL/hr continuous ordered. ke 15:01 Albuterol-Ipratropium 3 ml Inhalation once ordered. ke 15:01 Call Respiratory ordered. ke 15:01 -Blood Culture Ordered. EDMS 15:02 B-Type Natiuretic Peptide Ordered. EDMS 15:02 Basic Metabolic Profile Ordered. EDMS 15:02 CBC with Diff Ordered. EDMS 15:02 Cardiac Injury Profile Ordered. EDMS 15:02 Troponin Ordered. EDMS 15:02 Chest, 2 View (pa\E\lat) Ordered. EDMS 15:04 Aspirin 325 mg PO once ordered. ke 15:15 -Blood Culture (Adults Only), peripheral from different site, or from device/port/PICC deg etc. if present complete. 15:16 Call Respiratory complete. deg 15:16 BLOOD CULTURES Ordered. EDMS 15:30 Financial registration complete. ks16 15:31 [facility] Payment Agreement was scanned into [employer] and attached to record. ks16 16:34 Basic Metabolic Profile Reviewed. ke 16:34 CBC with Diff Reviewed. ke 16:34 B-Type Natiuretic Peptide Reviewed. ke 16:34 Cardiac Injury Profile Reviewed. ke 16:34 Troponin Reviewed. ke 16:34 Chest, 2 View (pa\E\lat) Reviewed. 03/09 06:36 T-Sheet-- Draft Copy was scanned into [employer] and attached to record. hs2 10:44 ECG/EKG was scanned into [employer] and attached to record. gb 10:45 Trend VS was scanned into [employer] and attached to record. gb Administered Medications: 03/08 15:10 Drug: Aspirin 325 mg [aspirin 325 mg tablet (1 tabs)] Route: PO; ms2 15:40 Drug: NS 0.9% 1000 ml [sodium chloride 0.9 % intravenous solution] Route: IV; Rate: 100 ms2 mL/hr; Site: right antecubital; 15:43 Drug: Albuterol-Ipratropium 3 ml [ipratropium-albuterol 0.5 mg-3 mg(2.5 mg base)/3 mL rs5 nebulization soln (3 mL)] Route: Inhalation; Signatures: Dispatcher [employer] EDDiana Sanches, Death Clearance Coordinator Unit deg Raman Leong RN RN ms2 Darling Valero, Reg Reg gb Tab Garcia, BARK GRINDER BARK GRINDER Hussain Rock RN RN mlb1 Melida Henao, Reg Reg ks16 Lydia Camacho, Reg Reg hs2 Jewel Cervantes RT rs5 The chart was reviewed and I authenticate all verbal orders and agree with the evaluation and treatment provided.Corrections: (The following items were deleted from the chart) 15:59 15:02 ARTERIAL BLOOD GAS+LAB ordered. EDMS EDMS 17:13 15:01 Oxygen at 4L/Min NC or Home dosage ordered. ms2 Attachments: 15:31 [facility] Payment Agreement [email or web address] 03/09 06:36 T-Sheet-- Draft Copy hs2 10:44 ECG/EKG gb Chart Complete MTDD
== END 2016-03-08 17:48 | disposition home or self-care (01) ==
LOC: M ED 14:21
DX: B34.9 Viral infection, unspecified (principal); M54.9 Dorsalgia, unspecified; I50.9 Heart failure, unspecified; J44.9 Chronic obstructive pulmonary disease, unspecified; K21.9 Gastro-esophageal reflux disease without esophagitis; Z95.818 Presence of other cardiac implants and grafts; Z72.0 Tobacco use; Z79.82 Long term (current) use of aspirin; Z79.899 Other long term (current) drug therapy; Z79.52 Long term (current) use of systemic steroids; Z88.8 Allergy status to other drugs, medicaments and biological substances

== ENCOUNTER → 2016-04-07 | Outpatient (CLI) | payer OTHER ==
[~2016-04-07] MED LIST changes: +HYDR-3713 PO; -HYDR1TAB97 PO
== END ==
LOC: M LAB 10:52
PROVIDERS: ATTEND Family Medicine
DX: R73.09 Other abnormal glucose (principal)

== ENCOUNTER 2016-06-02 12:19 | Inpatient (IN) | payer OTHER ==
[~2016-06-02] VITALS: Ht 175.3 cm; Wt 129.3 kg
[2016-06-02] MEDS ORDERED: IPRATROPIUM 0.5MG/ALBUTEROL 2.5MG INH SOL UD 3ML (DUONEB)(J7620) NEB ONE ×2 (13:15→14:15)
[2016-06-02] MEDS ORDERED: ALBUTEROL SULFATE 2.5 MG/0.5 ML INH NEB SOLN INH ONE ×2 (13:15→14:15)
[2016-06-02] MEDS ORDERED: methylPREDNISolone INJ 125 MG/2 ML VIAL (J2930) IV ONE (13:30)
[2016-06-02 13:40] LABS: BASO % 0.6 % (0.0-1.0); EOS # 0.2 K/mm3 (0.0-0.50); LARGE UNSTAINED CELL # 0.2 K/mm3 (0.0-0.4); LARGE UNSTAINED CELL % 1.9 % (0.0-4.0); LYMPH # 2.1 K/mm3 (1.5-4.5); LYMPH % 23.8 % (24.0-44.0); MEAN CORPUSCULAR HEMOGLOBIN 29.5 pg (27.0-33.0); MEAN CORPUSCULAR HGB CONC 33.7 g/dl (32.0-36.5); MEAN CORPUSCULAR VOLUME 87.6 fl (80.0-96.0); MONO # 0.4 K/mm3 (0.0-0.8); MONO % 4.8 % (0.0-5.0); NEUTROPHILS # 5.8 K/mm3 (1.8-7.7); NEUTROPHILS % 66.9 % (36.0-66.0); PLATELET COUNT, AUTOMATED 157 k/mm3 (150-450); RED CELL DISTRIBUTION WIDTH 13.1 % (11.5-14.5); WHITE BLOOD COUNT 8.6 K/mm3 (4.0-10.0)
[2016-06-02 13:46] LABS: ALBUMIN 3.4 GM/DL (3.2-5.2); ALKALINE PHOSPHATASE 77 U/L (45-117); ALT/SGPT 23 U/L (12-78); ANION GAP 11 MEQ/L (8-16); AST/SGOT 14 U/L (15-37); BILIRUBIN,DIRECT 0.1 MG/DL (0.0-0.2); BILIRUBIN,TOTAL 0.3 MG/DL (0.2-1.0); BLOOD UREA NITROGEN 17 MG/DL (7-18); CALCIUM LEVEL 8.7 MG/DL (8.5-10.1); CARBON DIOXIDE LEVEL 20 MEQ/L (21-32); CHLORIDE LEVEL 110 MEQ/L (98-107); CREATININE FOR GFR 0.89 MG/DL (0.70-1.30); FREE T4 1.07 NG/DL (0.76-1.46); GLOMERULAR FILTRATION RATE > 60.0 (>56); GLUCOSE, FASTING 119 MG/DL (70-105); POTASSIUM SERUM 3.8 MEQ/L (3.5-5.1); SODIUM LEVEL 141 MEQ/L (136-145); TOTAL PROTEIN 6.5 GM/DL (6.4-8.2)
[2016-06-02 13:47] LABS: ABG BASE EXCESS 0.5 (-2.0-2.0); ABG HCO3 22.3 MEQ/L (22.0-26.0); ABG PARTIAL PRESSURE CO2 28.7 mmHg (35.0-45.0); ABG PARTIAL PRESSURE O2 100.2 mmHg (75.0-100.0); ABG STANDARD HCO3 24.9 MEQ/L (22.0-26.0); ABG TOTAL CO2 23.2 MEQ/L (22.0-29.0); ABG pH (ARTERIAL) 7.508 UNITS (7.350-7.450)
--- NOTE | 2016-06-02 14:05 | REP ---
Clinical: Chest pain . Comparison: 03/08/2016 . Findings: The mediastinum and cardiac silhouette are stable and within normal limits for portable technique. The lung colindres are clear without acute consolidation, effusion, or pneumothorax. Skeletal structures are intact. Impression: Normal portable chest x-ray Signed by Nitesh Escobedo MD 06/02/2016 01:56 P
[2016-06-02] MEDS ORDERED: ISOVUE-370 76% 100ML VIAL (Q9967) As Ordered ONE (14:39)
--- NOTE | 2016-06-02 15:13 | REP ---
Clinical: Chest pain and shortness of breath. Comparison: 10/31/2015 . Technique: Axial contrast enhanced images from the thoracic inlet to the upper abdomen using 100 ml Isovue 370 intravenous contrast material with multiplanar re-formations. Findings: Satisfactory enhancement of the pulmonary vasculature is achieved however evaluation is somewhat limited due to respiratory motion artifact. No obvious filling defects are identified to suggest pulmonary embolus. Further evaluation of the mediastinum demonstrates normal thoracic aorta, heart and pericardium. The bilateral lung colindres demonstrate changes which may reflect bronchitis without focal consolidation or effusion. No significant nodule or mass lesion identified. 8 mm nodule in the right middle lobe remains stable compared to 2013 and likely represents noncalcified granuloma. No pneumothorax. Tracheobronchial tree is patent. No adenopathy noted. Surrounding musculoskeletal structures intact Impression: No evidence for pulmonary embolus. Stable 8 mm noncalcified granuloma unchanged compared to 2013. Cannot exclude mild bronchitis. No focal consolidation or acute mediastinal / pleuroparenchymal process. Signed by Nitesh Escobedo MD 06/02/2016 03:04 P
[2016-06-02] MEDS ORDERED: FLON1SPR (15:48)
[2016-06-02] MEDS ORDERED: ATOR1TAB18 PO (15:48)
[2016-06-02] MEDS ORDERED: IPRASOL4 INH (15:48)
[2016-06-02] MEDS ORDERED: VITA-121 PO (15:48)
[2016-06-02] MEDS ORDERED: DULE200A INH (15:48)
[2016-06-02] MEDS ORDERED: TRAM50TA2 PO (15:48)
[2016-06-02] MEDS ORDERED: FURO40TA2 PO (15:48)
[2016-06-02] MEDS ORDERED: OMEP40CA2 PO (15:48)
[2016-06-02] MEDS ORDERED: ALBU17IN INH (15:48)
[2016-06-02] MEDS ORDERED: PRED10TA PO (15:48)
[2016-06-02] MEDS ORDERED: ASPI325T PO (15:50)
[2016-06-02] MEDS ORDERED: IPRATROPIUM 0.5MG/ALBUTEROL 2.5MG INH SOL UD 3ML (DUONEB)(J7620) NEB PRN (17:15)
[2016-06-02] MEDS ORDERED: ALBUTEROL 90 MCG/ACT 8GM HFA INHALER INH PRN (17:15)
[2016-06-02] MEDS ORDERED: FUROSEMIDE 40 MG TAB PO PRN (17:15)
[2016-06-02] MEDS ORDERED: traMADol 50 MG TAB As Ordered ONE (17:30)
[2016-06-02] MEDS: traMADol 50 MG TAB PO PRN ×2 (17:44→22:22)
--- NOTE | 2016-06-02 18:08 | ECGEPIP ---
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
[2016-06-02 18:50] VITALS: BP 143/78
[2016-06-02 19:43] VITALS: BP 137/63
--- NOTE | 2016-06-02 19:49 | HPEPDOC ---
General Date of Admission Jun 02, 2016 at 15:53 Primary Care Physician: VASYL TUCKER DO Attending Physician: RAJESH DICKSON DO Chief Complaint The patient is a 51-year-old male admitted with a reason for visit of Copd Exacerbation. Source: Patient, RN notes reviewed, Old records Exam Limitations: No limitations Timing/Duration: 24 hours Associated Symptoms: Chest Pain, Cough, Chills, Shortness of breath, Weakness, Dizziness History of Present Illness Mr. Cross is a 51-year-old male who presents to [facility]'s emergency Department with increased shortness of breath. Past medical history significant for obstructive pulmonary disease, obstructive sleep apnea with CPAP, grade 1 diastolic heart failure, dyslipidemia, gastroesophageal reflux disease, syncopal episode status post implantable loop recorder, chronic back pain, history of gastrointestinal bleed, right lung pulmonary nodule, history of internal hemorrhoids, osteoarthritis, a history of adenomatous polyp. Patient's states that his symptoms started yesterday and he felt unwell. He states that he had a difficult time breathing, was coughing productive of green phlegm. Was recently at his primary care provider and was diagnosed with a sinus infection and ear infection and prescribed 10 day course of Levaquin. Patient reports completing the 10 day course recently. He reports shortness of breath at rest, orthopnea, paroxysmal nocturnal dyspnea. He states that he was not even able to go up the stairs at home. States at baseline he is able to go up and down one flight of stairs without becoming short of breath. He reports that this has happened before, but that this episode is worse than the others. Patient does report that there are 2 young children in the home that have been diagnosed with RSV and pneumonia. Patient also reports a sharp midline chest pain that radiates to his back and up his neck. He reports no alleviating factors. Reports that breathing makes it worse. States that his tramadol improves the chest pain. States that this pain is not new, but that his breathing difficulty has exacerbated the chest pain. Patient further admits to dizziness, lightheadedness, weakness, without falls or loss of consciousness. Further denies a sore throat or swelling in an extremity. Denies nausea, vomiting, abdominal pain, hemoptysis, urinary symptoms (dysuria, urinary frequency, urinary urgency, hematuria). Reports "teeth rattling" chills, but denies fever or night sweats. Does report both doc read and bright red blood, both on the toilet paper and coating the toilet bowl with bowel movements. Hospitalist service is consulted and patient was admitted for further medical management. Home Medications Scheduled (Flonase Allergy Relief) 50 Mcg/Act Spr 1 SPRAY NA BID (Reported) (Dulera 200-5 Mcg/Act) 1 Aer Aer 2 PUFFS INH DAILY (Reported) Albuterol/Ipratropium (Ipratropium Bolton/Albut 0.5-2.5 (3) mg/3Ml) 1 Marleni Marleni 1 MARLENI INH QID (Reported) Aspirin (Aspirin) 325 Mg Tab 325 MG PO DAILY (Reported) Atorvastatin Calcium (Atorvastatin Calcium) 80 Mg Tab 80 MG PO QHS (Reported) Cholecalciferol (Vitamin D-3) 1,000 Unit Tab 1,000 UNIT PO DAILY (Reported) Omeprazole (Omeprazole) 40 Mg Cap 40 MG PO DAILY (Reported) Prednisone (Prednisone) 10 Mg Tab 10 MG PO DAILY (Reported) Scheduled PRN Albuterol Sulfate (Ventolin Hfa) 200 Puff/8 Gm Aers 2 PUFF INH QID PRN PRN SHORTNESS OF BREATH (Reported) Furosemide (Furosemide) 40 Mg Tab 40 MG PO DAILY PRN PRN edema (Reported) Tramadol HCl (Tramadol HCl) 50 Mg Tab 50 MG PO Q4H PRN PRN PAIN (Reported) Allergies Coded Allergies: Budesonide (Verified Allergy, Severe, SWELLING OF AIRWAY, 02/09/14) Erythromycin (Verified Allergy, Severe, SWELLING OF AIRWAY, 02/09/14) Milk Protein Extract (Verified Allergy, Severe, SWELLING OF AIRWAY, ) Past Medical History Medical History 1. Chronic obstructive pulmonary disease 2. Obstructive sleep apnea with CPAP 3. Grade 1 diastolic heart failure 4. Syncopal episode status post implantable loop recorder 5. Gastroesophageal reflux disease 6. Dyslipidemia 7. History of gastrointestinal bleed, 8. Osteoarthritis 9. Right lung pulmonary nodule 10. Internal hemorrhoids 11. Adenomatous polyp 12. Chronic back pain Surgical History 1. Implantable loop recorder 2. Left knee medial meniscus tear repair 3. Left knee arthroscopy 4. Right knee replacement 5. Left ankle tendon repair 6. Hernia repair 7. Cardiac catheterization in 2014 8. 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 Dyspnea, Denies: Edema, Lt Headedness, Palpitations Gastrointestinal: Reports: Hematochezia, Denies: Abdominal Pain, Constipation, Diarrhea, Melena, Nausea, Vomiting Genitourinary: Denies: Dysuria, Frequency, Hematuria, Incontinence Hematologic: Denies: Bruising, Petecchia, Purpura Musculoskeletal: Reports: Back Pain, Neck Pain Neurological: Reports: Weakness Physical Examination General Exam: Positive: Alert, Cooperative Eye Exam: Positive: Conjunctiva & lids normal, EOMI, PERRLA, Negative: Ptosis, Sclera icteric ENT Exam: Positive: Atraumatic, Mucous membr. moist/pink, Nares Patent, Pharynx Normal, Tongue Midline Neck Exam: Positive: Supple, Negative: JVD, Lymphadenopathy, thyromegaly Chest Exam: Positive: Clear to auscultation, Normal air movement, Negative: Rales, Rhonchi, Wheezing Heart Exam: Positive: Normal S1, Normal S2, Rate Normal, Regular Rhythm, Negative: Gallops, Murmurs, Rubs Telemetry: Positive: No significant arrhythmia Abdomen Exam: Positive: Normal bowel sounds, Soft, Negative: Hepatospenomegaly, Hernia, Mass, Tenderness Extremity Exam: Positive: Normal pulses, Other (bilateral hands appear hard- working), Negative: Clubbing, Cyanosis, Edema, Swelling, Tenderness Neuro Exam: Positive: Cranial Nerves 3-12 NL, Normal Speech, Strength at 5/5 X4 ext Other physical findings Chest x-ray IMPRESSION: Normal portable chest x-ray CT angiogram of the chest IMPRESSION: No evidence for pulmonary embolus. Stable 8 mm noncalcified granuloma unchanged compared to 2013. Cannot exclude mild bronchitis. No focal consolidation or acute mediastinal / pleuroparenchymal process. Vital Signs T HR 72 RR 22 BP 135/82 O2 97% 3L NC Height (in): 69 Weight (kg): 127.006 BMI (kg): 41.3 Laboratory Data Labs 24H Laboratory Tests 2 06/02/16 12:51: Aspartate Amino Transf (AST/SGOT) 14L, Alanine Aminotransferase (ALT/SGPT) 23, Alkaline Phosphatase 77, Total Bilirubin 0.3, Direct Bilirubin 0.1, Albumin 3.4 , Albumin/Globulin Ratio 1.10, Anion Gap 11, B-Type Natriuretic Peptide 24.6, White Blood Count 8.6, Red Blood Count 4.82, Hemoglobin 14.2, Hematocrit 42.2, Mean Corpuscular Volume 87.6, Mean Corpuscular Hemoglobin 29.5, Mean Corpuscular Hemoglobin Concent 33.7, Red Cell Distribution Width 13.1, Platelet Count 157, Neutrophils (%) (Auto) 66.9H, Lymphocytes (%) (Auto) 23.8L, Monocytes (%) (Auto) 4.8, Eosinophils (%) (Auto) 2.0, Basophils (%) (Auto) 0.6, Neutrophils # (Auto) 5.8, Lymphocytes # (Auto) 2.1, Monocytes # (Auto) 0.4, Eosinophils # (Auto) 0.2, Basophils # (Auto) 0.0, Calcium Level 8.7, Creatine Kinase MB 1.0, Creatine Kinase MB Relative Index 1.44, Free Thyroxine 1.07, Glomerular Filtration Rate > 60.0, Large Unclassified Cells # 0.2, Large Unclassified Cells % 1.9, Thyroid Stimulating Hormone (TSH) 0.865, Total Creatine Kinase 69, Total Protein 6.5, Troponin I < 0.02 06/02/16 13:40: Arterial Blood pH 7.508H, Arterial Blood Partial Pressure CO2 28.7L, Arterial Blood Partial Pressure O2 100.2H, Arterial Blood Total CO2 23.2, Arterial Blood HCO3 22.3, Arterial Blood Base Excess 0.5, Arterial Blood Oxygen Saturation 98.5 , Blood Gas Bicarbonate Standard 24.9 06/02/16 17:29: Total Creatine Kinase 71, Troponin I < 0.02 CBC/BMP Laboratory Tests 06/02/16 12:51 Red Blood Count 4.82, Mean Corpuscular Volume 87.6, Mean Corpuscular Hemoglobin 29.5, Mean Corpuscular Hemoglobin Concent 33.7, Red Cell Distribution Width 13.1 , Neutrophils (%) (Auto) 66.9 H, Lymphocytes (%) (Auto) 23.8 L, Monocytes (%) ( Auto) 4.8, Eosinophils (%) (Auto) 2.0, Basophils (%) (Auto) 0.6, Neutrophils # ( Auto) 5.8, Lymphocytes # (Auto) 2.1, Monocytes # (Auto) 0.4, Eosinophils # (Auto ) 0.2, Basophils # (Auto) 0.0 Microbiology Microbiology 06/02/16 Blood Culture, Received Pending 06/02/16 Respiratory Virus Panel (PCR) (MÓNICA), Received Pending RAD Interpretation STUDY: CXR Rad Actions: Report Reviewed (normal portable chest x-ray) Assessment/Plan This is a 51-year-old male with a past medical history significant for chronic obstructive pulmonary disease, obstructive sleep apnea with CPAP, grade 1 diastolic heart failure, syncopal episode status post implantable loop recorder, gastroesophageal reflux disease, dyslipidemia, history of gastrointestinal bleed, right lung pulmonary nodule, osteoarthritis, history of internal hemorrhoids, adenomatous polyp who presents with increasing shortness of breath and cough productive of green phlegm likely secondary to acute exacerbation of chronic obstructive pulmonary disease. Problems (1) COPD exacerbation Status: Acute Problem Text: ABG: pH 7.508, pCO2 28.7, pO2 100.2 White count 8.6 Hold antibiotic therapy at this time Order Solu-Medrol 80 mg every 8 hours Continue patient's Flonase, DuoNeb, and Proventil (2) Chest pain Status: Acute Problem Text: EKG showed no significant changes from prior EKG Admit to the progressive care unit Obtain cardiac markers Obtain echocardiogram (3) Gastroesophageal reflux disease Status: Chronic Problem Text: Continue home therapy (4) Diastolic CHF Status: Chronic Problem Text: 2 L fluid restriction Continue Lasix (5) Chronic back pain Status: Chronic Problem Text: Continue tramadol Plan / VTE VTE Prophylaxis Ordered?: Yes (heparin 5000 units subcutaneous every 8 hours) Plan Plan Acute exacerbation of chronic obstructive pulmonary disease Patient reports increased shortness of breath and cough productive of green phlegm. Patient is oxygenating at 97% on 3 L by nasal cannula. His ABG reports a pH of 7.508, a PCO2 of 28.7, and a PO2 of 100.2. This is most consistent with respiratory alkalosis. Patient appears to be hyperventilating on evaluation. Patient does not have a white count. Therefore we will forego starting antibiotics at this time. Patient did just complete a ten-day course of Levaquin for a sinus and ear infection. We'll start patient on Solu-Medrol 80 mg every 8 hours. We'll continue her breathing treatments including Flonase, DuoNeb, and Proventil Chest pain Patient reports chest pain that radiates to his back and up his neck. Describes it as a sharp pain. EKG at presentation did not reveal any acute abnormalities. Will admit patient to the progressive care unit. We'll obtain an echocardiogram as the last one reported as 2013 and reports grade 1 diastolic heart failure. We 'll obtain serial cardiac markers. Grade 1 diastolic heart failure Last reported echocardiogram was in 2013. We'll obtain a new echocardiogram. We' ll place patient on a 2 L fluid restriction. We'll continue patient's home medication of Lasix. We'll hold off providing intravenous fluid resuscitation at this time. Chronic back pain Continue patient on home medication of tramadol. Gastroesophageal reflux disease Continue patient's Prilosec. Prophylaxis: Heparin 5000 units subcutaneous every 8 hours Diet: COPD Disposition Admit to the progressive care unit Anticipated hospitalization: 2 nights Attending: Dr. Talbot Diet: Continue Current (COPD diet) Activity: Continue Current (activity as tolerated) Respiratory: Other Respiratory (titrate oxygen therapy to maintain oxygen saturation between 88-92%) Diagnostics: Check Labs, Repeat Labs in AM, Obtain Cultures, TTE Anticipated Discharge: Home ZACHARIAH LOVE Jun 02, 2016 18:43
[2016-06-02] MEDS: IPRATROPIUM 0.5MG/ALBUTEROL 2.5MG INH SOL UD 3ML (DUONEB)(J7620) INH SCH (20:41)
[2016-06-02] MEDS: FLUTICASONE PROP 0.05% NASAL SPRAY 16 GM (FLONASE) SCH (22:22)
[2016-06-02] MEDS: methylPREDNISolone INJ 125 MG/2 ML VIAL (J2930) IV SCH (22:22)
[2016-06-02] MEDS: ATORVASTATIN 20 MG TAB PO SCH (22:22)
[2016-06-02] MEDS: HEPARIN SOD (PORCINE) 5000 UNITS/ML VIAL SC SCH (22:23)
[2016-06-03 00:42] VITALS: BP 141/67
[2016-06-03 05:00] VITALS: BP 144/86
[2016-06-03] MEDS: traMADol 50 MG TAB PO PRN ×4 (05:35→21:00)
[2016-06-03] MEDS: methylPREDNISolone INJ 125 MG/2 ML VIAL (J2930) IV SCH (05:35)
[2016-06-03] MEDS: HEPARIN SOD (PORCINE) 5000 UNITS/ML VIAL SC SCH ×3 (05:35→21:00)
[2016-06-03 06:21] LABS: MEAN CORPUSCULAR HEMOGLOBIN 30.3 pg (27.0-33.0); MEAN CORPUSCULAR HGB CONC 34.6 g/dl (32.0-36.5); MEAN CORPUSCULAR VOLUME 87.8 fl (80.0-96.0); WHITE BLOOD COUNT 17.5 K/mm3 (4.0-10.0)
[2016-06-03 06:29] LABS: ANION GAP 8 MEQ/L (8-16); BLOOD UREA NITROGEN 13 MG/DL (7-18); CALCIUM LEVEL 9.2 MG/DL (8.5-10.1); CARBON DIOXIDE LEVEL 23 MEQ/L (21-32); CHLORIDE LEVEL 108 MEQ/L (98-107); CREATININE FOR GFR 0.97 MG/DL (0.70-1.30); GLOMERULAR FILTRATION RATE > 60.0 (>56); GLUCOSE, FASTING 170 MG/DL (70-105); POTASSIUM SERUM 4.1 MEQ/L (3.5-5.1); SODIUM LEVEL 139 MEQ/L (136-145)
[2016-06-03] MEDS: IPRATROPIUM 0.5MG/ALBUTEROL 2.5MG INH SOL UD 3ML (DUONEB)(J7620) INH SCH ×4 (07:40→20:27)
[2016-06-03 08:00] VITALS: BP 168/85
[2016-06-03] MEDS: VITAMIN D 1,000 INTERNATIONAL UNITS TABLET PO SCH (08:17)
[2016-06-03] MEDS: ASPIRIN 325 MG TAB PO SCH (08:17)
[2016-06-03] MEDS: FLUTICASONE PROP 0.05% NASAL SPRAY 16 GM (FLONASE) SCH ×2 (08:18→21:01)
[2016-06-03] MEDS: OMEPRAZOLE 20 MG CAP PO SCH (08:18)
[2016-06-03 12:00] VITALS: BP 123/59
[2016-06-03] MEDS: SLF 3 ML SYR IV SCH ×2 (14:00→21:01)
[2016-06-03] MEDS ORDERED: SLF 3 ML SYR IV PRN (14:00)
--- NOTE | 2016-06-03 14:10 | IPN ---
DATE: 06/03/2016 He is still feeling short of breath. He is not complaining of chest pain. Does feel better than he did yesterday. Apparently, he has two grandchildren with RSV, who are currently hospitalized, although his respiratory screen was negative. Temperature 97.7, pulse 80, respiratory rate 19, blood pressure 168/85, 97% on room air. Input and output notable for a negative fluid balance of -350. Body Mass Index (BMI) is 40.9. He is awake, appropriately interactive. Engaged in our conversation. Mucous membranes are moist. Neck is supple. Breathing is symmetrical. I:E ratio is 1:4 with decreased aeration. No wheezes. No accessory muscle use. Speaking in complete sentences. HEART: Regular rate and rhythm. No significant arrhythmia on monitor. ABDOMEN: Soft, doughy, nontender. No significant lower extremity edema. ASSESSMENT: This is a 51-year-old with chronic obstructive pulmonary disease (COPD) exacerbation, most likely result of RSV. PLAN: 1. For COPD, the patient is on steroids, which will be continued. Continue aggressive pulmonary toilet. Would offer an Acapella device. No role for antibiotics at this time. 2. The patient had an evidence of chest pain at the time of presentation. No further evidence of chest pain. No findings on telemetry. No increasing cardiac markers. He will be transferred to medical/surgical. 3. The patient has a history of diastolic congestive heart failure (CHF), does not appear to be overloaded at this point and can be monitored clinically. 4. The patient has obstructive sleep apnea and is compliant with his therapy. His CPAP device is at bedside. 5. The patient has right lung pulmonary nodule. 6. Morbid obesity complicates care. MTDD
[2016-06-03 20:30] VITALS: O2SAT 96
[2016-06-03] MEDS: ATORVASTATIN 20 MG TAB PO SCH (20:59)
[2016-06-03] MEDS: predniSONE 20 MG TAB PO SCH (21:00)
[2016-06-03 22:00] VITALS: BP 153/65
--- NOTE | 2016-06-03 23:10 | ECHO ---
DATE OF PROCEDURE: 06/03/2016 REFERRING PHYSICIAN: Carmen Briones INDICATION: Dyspnea. HEIGHT: 175 cm WEIGHT: 127 kg MEASUREMENTS: Left atrium: 4.3 cm Ventricular septum: 1.19 cm Posterior wall: 1.19 cm Left ventricle diastole: 5.2 cm Aortic root: 3.6 cm LVOT: 2.2 cm Inferior vena cava: 1.7 cm with more than 50% respiratory variation. DOPPLER MEASUREMENTS: Aortic valve velocity: 205 cm/s LVOT velocity: 182 cm/s LVOT VTI: 30.3 cm Trace mitral regurgitation. Mitral E velocity: 85.9 cm/s Mitral A velocity: 87.4 cm/s Mitral deceleration time: 250 ms Very mild tricuspid regurgitation. Estimated right ventricle systolic pressure 44 mmHg assuming a right atrial pressure of 5 mmHg. Pulmonary artery systolic pressure 34 mmHg by pulmonary acceleration time method. MITRAL ANNULAR TISSUE DOPPLER: E prime septal: 11.0 cm/s E prime lateral: 9.5 cm/s DESCRIPTION: Rhythm was sinus. This was a moderately technically difficult echocardiogram. No pericardial effusion. This is a 2D, M-mode, color flow Doppler and pulse wave Doppler examination that included mitral annular tissue Doppler. No pericardial effusion. CONCLUSIONS: 1. Normal left ventricle internal dimensions and wall thickness. No regional wall motion abnormalities. Hyperdynamic left ventricle (LV) systolic function. Left ventricular ejection fraction (LVEF) of 75% by visual estimate. LV diastolic function within normal limits. 2. Mild left atrial dilation. 3. Suggestive of moderate elevation of estimated right ventricle systolic pressure. 4. Moderately technically difficult echocardiogram.
[2016-06-04] MEDS: HEPARIN SOD (PORCINE) 5000 UNITS/ML VIAL SC SCH ×3 (05:51→22:00)
[2016-06-04] MEDS: SLF 3 ML SYR IV SCH ×3 (05:52→22:00)
[2016-06-04] MEDS: traMADol 50 MG TAB PO PRN ×3 (05:52→18:22)
[2016-06-04 06:00] VITALS: BP 123/64
[2016-06-04 07:02] LABS: MEAN CORPUSCULAR HEMOGLOBIN 29.9 pg (27.0-33.0); MEAN CORPUSCULAR HGB CONC 33.8 g/dl (32.0-36.5); MEAN CORPUSCULAR VOLUME 88.6 fl (80.0-96.0); RED CELL DISTRIBUTION WIDTH 13.2 % (11.5-14.5); WHITE BLOOD COUNT 19.1 K/mm3 (4.0-10.0)
[2016-06-04 07:13] LABS: ANION GAP 7 MEQ/L (8-16); BLOOD UREA NITROGEN 18 MG/DL (7-18); CALCIUM LEVEL 8.7 MG/DL (8.5-10.1); CARBON DIOXIDE LEVEL 26 MEQ/L (21-32); CHLORIDE LEVEL 109 MEQ/L (98-107); CREATININE FOR GFR 0.89 MG/DL (0.70-1.30); GLOMERULAR FILTRATION RATE > 60.0 (>56); GLUCOSE, FASTING 135 MG/DL (70-105); POTASSIUM SERUM 4.3 MEQ/L (3.5-5.1); SODIUM LEVEL 142 MEQ/L (136-145)
[2016-06-04] MEDS: VITAMIN D 1,000 INTERNATIONAL UNITS TABLET PO SCH (08:18)
[2016-06-04] MEDS: ASPIRIN 325 MG TAB PO SCH (08:18)
[2016-06-04] MEDS: FLUTICASONE PROP 0.05% NASAL SPRAY 16 GM (FLONASE) SCH ×2 (08:18→19:56)
[2016-06-04] MEDS: OMEPRAZOLE 20 MG CAP PO SCH (08:18)
[2016-06-04] MEDS: predniSONE 20 MG TAB PO SCH ×2 (08:18→19:55)
[2016-06-04] MEDS: IPRATROPIUM 0.5MG/ALBUTEROL 2.5MG INH SOL UD 3ML (DUONEB)(J7620) INH SCH ×4 (08:26→20:04)
[2016-06-04 14:00] VITALS: BP 129/60
--- NOTE | 2016-06-04 16:29 | IPN ---
DATE: 06/04/2016 Mr. Cross is feeling somewhat better today. He is still somewhat short of breath. He was helped with the use of the acapella device. No complaints of chest pain. He is coughing and producing sputum. Temperature is 97.5, pulse is 77, respiratory rate 16, blood pressure 123/64, 99 % on 3 liters. Input and output notable for a negative fluid balance of -255. He is awake, appropriately interactive and pleasantly conversant. Breathing is symmetrical, somewhat diminished. No wheezes. No accessory muscle use. Speaking in complete sentences. HEART: Regular rate and rhythm. ABDOMEN: Soft, doughy, nontender. White cell count is 19, creatinine 0.9. ASSESSMENT: 51-year-old with chronic obstructive pulmonary disease (COPD) exacerbation, most likely as a result of respiratory syncytial virus (RSV). PLAN: 1. For COPD. The patient is now on prednisone and has malclearance of secretions. He is being treated with aggressive pulmonary toilet, likely from a viral etiology so there is no role for antibiotics. He is generally improving. I anticipate discharge tomorrow. 2. The patient had chest pain at the time of the presentation, which is totally resolved and has not recurred. 3. The patient has diastolic congestive heart failure (CHF) and appears to be compensated. 4. The patient has obstructive sleep apnea and is compliant with his continuous positive airway pressure (CPAP) device. 5. The patient has right pulmonary nodule. 6. Morbid obesity complicates care. [facility]
[2016-06-04] MEDS: ATORVASTATIN 20 MG TAB PO SCH (19:55)
[2016-06-04 20:05] VITALS: O2SAT 95
[2016-06-04 22:00] VITALS: BP 118/93
[2016-06-05] MEDS: HEPARIN SOD (PORCINE) 5000 UNITS/ML VIAL SC SCH (05:27)
[2016-06-05] MEDS: SLF 3 ML SYR IV SCH (05:27)
[2016-06-05] MEDS: traMADol 50 MG TAB PO PRN (06:36)
[2016-06-05 07:07] LABS: MEAN CORPUSCULAR HEMOGLOBIN 30.3 pg (27.0-33.0); MEAN CORPUSCULAR HGB CONC 33.8 g/dl (32.0-36.5); MEAN CORPUSCULAR VOLUME 89.4 fl (80.0-96.0); RED CELL DISTRIBUTION WIDTH 13.3 % (11.5-14.5); WHITE BLOOD COUNT 16.4 K/mm3 (4.0-10.0)
[2016-06-05 07:23] LABS: ANION GAP 5 MEQ/L (8-16); BLOOD UREA NITROGEN 18 MG/DL (7-18); CALCIUM LEVEL 8.9 MG/DL (8.5-10.1); CARBON DIOXIDE LEVEL 28 MEQ/L (21-32); CHLORIDE LEVEL 107 MEQ/L (98-107); CREATININE FOR GFR 0.88 MG/DL (0.70-1.30); GLOMERULAR FILTRATION RATE > 60.0 (>56); GLUCOSE, FASTING 131 MG/DL (70-105); POTASSIUM SERUM 4.3 MEQ/L (3.5-5.1); SODIUM LEVEL 140 MEQ/L (136-145)
[2016-06-05] MEDS: IPRATROPIUM 0.5MG/ALBUTEROL 2.5MG INH SOL UD 3ML (DUONEB)(J7620) INH SCH (07:57)
[2016-06-05] MEDS: VITAMIN D 1,000 INTERNATIONAL UNITS TABLET PO SCH (08:14)
[2016-06-05] MEDS: ASPIRIN 325 MG TAB PO SCH (08:14)
[2016-06-05] MEDS: OMEPRAZOLE 20 MG CAP PO SCH (08:14)
[2016-06-05] MEDS: predniSONE 20 MG TAB PO SCH (08:14)
[2016-06-05] MEDS: FLUTICASONE PROP 0.05% NASAL SPRAY 16 GM (FLONASE) SCH (08:15)
[2016-06-05] MEDS ORDERED: PRED10TA PO (08:59)
[2016-06-05] MEDS ORDERED: INFLUENZA QUADRIVALENT PF VACCINE 0.5ML SYRINGE/VIAL (90686) IM ONE (09:00)
--- NOTE | 2016-06-05 16:54 | DSES ---
DATE OF ADMISSION: 06/04/2016 DATE OF DISCHARGE: 06/05/2016 No specialists involved in care. No complications during stay. No procedures during stay. DISCHARGE DIAGNOSES: 1. Suspected respiratory syncytial virus (RSV) induced chronic obstructive pulmonary disease (COPD) exacerbation. 2. Obstructive sleep apnea, compliant with therapy. 3. Congestive heart failure with diastolic dysfunction. 4. Right lung pulmonary nodule. 5. Status post syncopal episode with implantable loop recorder. 6. Chronic back pain. 7. Morbid obesity complicates care THE FOLLOWING IS A SUMMARY OF HIS PRESENTATION: This is a 51-year-old who presented with increasing shortness of breath. His two grandchildren tested positive for Respiratory syncytial virus (RSV) and hospitalized not long after he was hospitalized. His respiratory panel was negative. He was not given antibiotics, but was given steroids, aggressive pulmonary toilet and was treated for mild clearance of secretions with an acapella device with good effect. He improved fully. On the day of discharge, he is feeling well. He has no complaints of pain, chest pain, shortness of breath. He seems to be at baseline. Temperature 99.8, pulse 98, respiratory rate 18, blood pressure 118/93, 97% on room air. Intake and output (I O) notable for a positive fluid balance of 1320. He is awake and appropriately interactive, pleasantly conversant. Breathing is symmetrical and rested. Good aeration. Inspiratory to expiratory (I:E) ratio is 1:4. No accessory muscle use. Speaking in complete sentences. Heart is in regular rate and rhythm. Abdomen soft, nontender. White cell count 16.4. Creatinine 0.88. DISCHARGE INSTRUCTIONS: Include the followin. Follow up with Renetta Freire scheduled for 06/15/2016 at 03:30 p.m. 2. Diet and activity as tolerated. 3. Continue with prednisone taper as written. MEDICATIONS AT THE TIME OF DISCHARGE: - albuterol four times daily and as needed for shortness of breath - DuoNebs four times daily - aspirin 325 mg by mouth daily - atorvastatin 80 mg by mouth daily - vitamin D supplement - Dulera 2 puffs inhaled daily - Flonase 1 spray nasally daily - Lasix 40 mg by mouth daily as needed for edema - omeprazole 40 mg by mouth daily - tramadol 40 mg every 4 hours as needed for pain MTDD
== END 2016-06-05 10:15 | disposition home or self-care (01) | DRG 140 ==
LOC: M ED 14:17 → M ED INP 15:53 → M PCU 18:25 → M MS5PR 06-03 17:08 → OBSVTOIN 06-04 07:14
PROVIDERS: ADMIT Hospitalist; ATTEND Internal Medicine
DX: J44.1 Chronic obstructive pulmonary disease with (acute) exacerbation (principal); I50.32 Chronic diastolic (congestive) heart failure; Z68.41 Body mass index [BMI] 40.0-44.9, adult; E66.01 Morbid (severe) obesity due to excess calories; G47.33 Obstructive sleep apnea (adult) (pediatric); E78.5 Hyperlipidemia, unspecified; K21.9 Gastro-esophageal reflux disease without esophagitis; M54.9 Dorsalgia, unspecified; K64.8 Other hemorrhoids; R07.9 Chest pain, unspecified; R91.1 Solitary pulmonary nodule; M19.90 Unspecified osteoarthritis, unspecified site; Z86.010 Personal history of colon polyps; Z79.52 Long term (current) use of systemic steroids; Z79.82 Long term (current) use of aspirin; Z79.899 Other long term (current) drug therapy; Z88.1 Allergy status to other antibiotic agents; Z88.8 Allergy status to other drugs, medicaments and biological substances; Z96.651 Presence of right artificial knee joint; Z91.011 Allergy to milk products

== ENCOUNTER 2016-06-11 08:06 | Emergency (ER) | payer OTHER ==
[~2016-06-11] VITALS: Ht 175.3 cm; Wt 127.0 kg
[~2016-06-11 08:06] MED LIST changes: +FLON1SPR; +VITA-121 PO
[2016-06-11] MEDS ORDERED: NS 1,000 ML IV ONE (08:45)
[2016-06-11] MEDS ORDERED: METOCLOPRAMIDE INJ 10MG/2ML VIAL (J2765) IV ONE (08:45)
[2016-06-11] MEDS ORDERED: KETOROLAC 30 MG/ML VIAL (J1885) IV ONE (08:45)
[2016-06-11 08:49] LABS: BASO # 0.1 K/mm3 (0.0-0.2); BASO % 0.5 % (0.0-1.0); EOS # 0.3 K/mm3 (0.0-0.50); EOS % 2.1 % (0.0-3.0); LARGE UNSTAINED CELL # 0.2 K/mm3 (0.0-0.4); LARGE UNSTAINED CELL % 1.3 % (0.0-4.0); LYMPH % 14.1 % (24.0-44.0); MEAN CORPUSCULAR HEMOGLOBIN 29.7 pg (27.0-33.0); MEAN CORPUSCULAR VOLUME 87.6 fl (80.0-96.0); MONO # 0.9 K/mm3 (0.0-0.8); MONO % 6.9 % (0.0-5.0); NEUTROPHILS # 9.8 K/mm3 (1.8-7.7); NEUTROPHILS % 75.3 % (36.0-66.0); PLATELET COUNT, AUTOMATED 141 k/mm3 (150-450); RED CELL DISTRIBUTION WIDTH 13.2 % (11.5-14.5)
[2016-06-11 09:01] LABS: ALBUMIN 3.3 GM/DL (3.2-5.2); ALBUMIN/GLOBULIN RATIO 0.97 (1.00-1.93); ALKALINE PHOSPHATASE 77 U/L (45-117); ALT/SGPT 29 U/L (12-78); ANION GAP 7 MEQ/L (8-16); AST/SGOT 19 U/L (15-37); BILIRUBIN,DIRECT < 0.1 MG/DL (0.0-0.2); BILIRUBIN,TOTAL 0.4 MG/DL (0.2-1.0); BLOOD UREA NITROGEN 20 MG/DL (7-18); CALCIUM LEVEL 8.4 MG/DL (8.5-10.1); CARBON DIOXIDE LEVEL 22 MEQ/L (21-32); CHLORIDE LEVEL 110 MEQ/L (98-107); CREATININE FOR GFR 1.11 MG/DL (0.70-1.30); GLOMERULAR FILTRATION RATE > 60.0 (>56); GLUCOSE, FASTING 113 MG/DL (70-105); POTASSIUM SERUM 3.3 MEQ/L (3.5-5.1); SODIUM LEVEL 139 MEQ/L (136-145); TOTAL PROTEIN 6.7 GM/DL (6.4-8.2)
[2016-06-11] MEDS ORDERED: POTASSIUM CHLORIDE 10 MEQ SR TABLET PO ONE (09:30)
--- NOTE | 2016-06-11 09:42 | REP ---
ABDOMINAL SERIES: Supine and erect views of the abdomen and pelvis demonstrate no free air. There is no evidence of bowel obstruction. No dilated small bowel loops are seen. No abnormal calcifications are seen. There are mild degenerative changes of the spine. An accompanying view of the chest demonstrates no acute infiltrate. The cardiomediastinal silhouette appears unremarkable. IMPRESSION: Essentially negative abdominal series. No free air or obstruction. Signed by Adan Flores MD 06/11/2016 04:49 P
[2016-06-11 11:57] VITALS: BP 116/62
--- NOTE | 2016-06-11 18:35 | ECGEPIP ---
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
== END 2016-06-11 12:30 | disposition home or self-care (01) ==
LOC: M ED 09:10
DX: R11.2 Nausea with vomiting, unspecified (principal); R19.7 Diarrhea, unspecified; R50.9 Fever, unspecified; M79.1 Myalgia; E78.9 Disorder of lipoprotein metabolism, unspecified; F41.9 Anxiety disorder, unspecified; F32.9 Major depressive disorder, single episode, unspecified; F17.200 Nicotine dependence, unspecified, uncomplicated; Z88.1 Allergy status to other antibiotic agents; Z88.8 Allergy status to other drugs, medicaments and biological substances; Z91.011 Allergy to milk products; Z79.899 Other long term (current) drug therapy; Z79.52 Long term (current) use of systemic steroids; Z79.51 Long term (current) use of inhaled steroids; Z79.82 Long term (current) use of aspirin
CPT/HCPCS: 74022; 80048; 80076; 83690; 85025; 93005; 96361; 96374; 96375; 99284; J1885; J2765

== ENCOUNTER → 2016-07-21 | Outpatient (CLI) | payer OTHER ==
--- NOTE | 2016-07-22 08:32 | REP ---
CT MAXILLOFACIAL WITHOUT CONTRAST: 07/23/2015. Clinical history: Chronic maxillary sinusitis, deviated septum. No prior study. Technique: Axial soft-tissue and bone window images with coronal reconstructions provided in bone window settings. There is extensive mucosal thickening or mucous retention cyst in the left maxillary sinus. There is mucosal thickening and stenosis of the ostium and infundibulum of the left OMC. Similar appearance for the right OMC with mucosal thickening. There is minimal mucosal thickening in the floor of the right maxillary sinus. Septum minimally deviated towards the left side posteriorly and the right side anteriorly. Nasal spine of the maxilla and the nasal bones are intact. A few of the ethmoid air cells show mucosal thickening and the anterior margins of the sphenoid sinuses were also with minor mucosal thickening. No right frontal sinus developed. The left frontal sinus is normal. The zygomatic arches, orbital struts, medial and inferior iraheta of the orbit were all intact. The globes, optic nerves, extraocular muscles and intraconal fat are unremarkable. Visualized bones at the skull base are intact. The right mastoid air cells are opacified without destructive change. Middle and inner ears appeared grossly symmetric otherwise. Impression: 1. Large amount of mucosal thickening or mucus retention cyst in the left maxillary sinus without air fluid level. 2. Occlusion of the OMC's bilaterally with the ostium and infundibulum on each side stenotic/occluded because of mucosal thickening. 3. Slight deviation nasal septum with some minor sphenoid sinus and ethmoid sinus mucosal thickening. Signed by William Glass MD 07/22/2016 12:24 P
== END ==
LOC: M RAD 16:48
PROVIDERS: ATTEND Specialist
DX: J32.0 Chronic maxillary sinusitis (principal); J34.2 Deviated nasal septum; H65.23 Chronic serous otitis media, bilateral

== ENCOUNTER → 2016-08-24 | Outpatient (CLI) | payer MEDICAID | LOC: M OUTALCOH 13:23 | PROVIDERS: ATTEND Psychiatry & Neurology Psychiatry | DX: F10.10 Alcohol abuse, uncomplicated (principal) ==

== ENCOUNTER 2016-10-16 11:00 | Outpatient (CLI) | payer OTHER ==
[~2016-10-16] VITALS: Ht 175.3 cm; Wt 122.5 kg
[~2016-10-16 11:00] MED LIST changes: -ATOR1TAB18 PO; +ATOR80TA59 PO; -AUGM875T27 PO; +AUGM875T28 PO; -AVEL1TAB PO; +AVEL1TAB3 PO; +BACITAB PO; -BACITAB3 PO; -LEVA750T PO; +LEVA750T7 PO; +NS 1,000 ML IV ONE; +TRAZ-136 PO; -TRAZ100T4 PO
[2016-10-16] MEDS ORDERED: PROPOFOL 200 MG/20 ML VIAL As Ordered ONE (13:01)
--- NOTE | 2016-10-16 13:08 | ROOR ---
Patient Name: Hussain Cross Procedure Date: 10/16/2016 12:43 PM Date of : 1965 Age: 51 Room: [facility] Gender: Male Note Status: Finalized Procedure: Colonoscopy Indications: High risk colon cancer surveillance: Personal history of colonic polyps, Last colonoscopy: August 2013 Providers: Matt FORREST MD Referring MD: Renetta Freire Do Requestalisha Provider: Medicines: Monitored Anesthesia Care Complications: No immediate complications. Procedure: Pre-Anesthesia Assessment: - The heart rate, respiratory rate, oxygen saturations, blood pressure, adequacy of pulmonary ventilation, and response to care were monitored throughout the procedure. The Colonoscope was introduced through the anus and advanced to the cecum, identified by appendiceal orifice and ileocecal valve. The colonoscopy was performed without difficulty. The patient tolerated the procedure well. The quality of the bowel preparation was poor. Findings: The perianal and digital rectal examinations were normal. A 4 mm polyp was found in the splenic flexure. The polyp was sessile. The polyp was removed with a cold snare. Resection and retrieval were complete. Small Internal Hemorrhoids. The exam was otherwise without abnormality on direct and retroflexion views. Impression: - Preparation of the colon was poor, improved after extensive lavage. - One 4 mm polyp at the splenic flexure, removed with a cold snare. Resected and retrieved. - Small Internal Hemorrhoids. - The examination was otherwise normal on direct and retroflexion views. Recommendation: - Repeat colonoscopy in 2 years because the bowel preparation was suboptimal and for surveillance. Matt Forrest MD Matt FORREST MD 10/16/2016 1:07:29 PM This report has been signed electronically. Number of Addenda: 0 Note Initiated On: 10/16/2016 12:43 PM Estimated Blood Loss: Estimated blood loss: none.
[2016-10-16] MEDS ORDERED: LIDOCAINE 2% INJ 100 MG/5 ML SDV (FOR ANES.) As Ordered ONE (13:29)
[2016-10-16 13:30] VITALS: BP 129/88
[2016-11-16] MEDS ORDERED: PRED5TA PO (13:16)
== END 2016-10-16 13:49 | disposition home or self-care (01) ==
LOC: M OPP 11:00
PROVIDERS: ATTEND Internal Medicine Gastroenterology
DX: Z12.11 Encounter for screening for malignant neoplasm of colon (principal); D12.3 Benign neoplasm of transverse colon; K64.8 Other hemorrhoids; Z86.010 Personal history of colon polyps; R00.8 Other abnormalities of heart beat; I25.119 Atherosclerotic heart disease of native coronary artery with unspecified angina pectoris; R07.89 Other chest pain; E78.5 Hyperlipidemia, unspecified; E55.9 Vitamin D deficiency, unspecified; R12 Heartburn; M19.90 Unspecified osteoarthritis, unspecified site; M25.60 Stiffness of unspecified joint, not elsewhere classified; J45.909 Unspecified asthma, uncomplicated; J44.9 Chronic obstructive pulmonary disease, unspecified; G47.30 Sleep apnea, unspecified; Z97.8 Presence of other specified devices; Z87.891 Personal history of nicotine dependence; Z88.1 Allergy status to other antibiotic agents; Z88.8 Allergy status to other drugs, medicaments and biological substances; Z91.011 Allergy to milk products; Z79.82 Long term (current) use of aspirin; Z79.899 Other long term (current) drug therapy; Z80.9 Family history of malignant neoplasm, unspecified

== ENCOUNTER → 2016-10-27 | Outpatient (CLI) | payer OTHER ==
[~2016-10-27] MED LIST changes: +CIPR-249 PO; +CONRAY-43 43% 50ML VIAL (Q9960) As Ordered ONE; +LIDOCAINE 1% MDV 20ML VIAL As Ordered ONE; -NS 1,000 ML IV ONE; +PERC5TAB12 PO; +methylPREDNISolone SUSP 40 MG/ML (DEPO-medrol) VIAL (J1030) As Ordered ONE
--- NOTE | 2016-10-27 18:29 | REP ---
RIGHT HIP ARTHROGRAM: The procedure was performed by CAITIE Mahmood under the direct supervision of Dr. Flores. The procedure along with its risks, benefits, and complications were discussed with the patient prior to the procedure. Informed consent was obtained both verbally and written. The right femoral neck was localized using fluoroscopic guidance. The skin was prepped and draped in the usual sterile fashion. 1% Xylocaine was used for a local anesthetic. Under fluoroscopic guidance a 22-gauge spinal needle was inserted and advanced to the femoral neck. 0.5 mL of Conray 60 was injected to verify placement. A 10 mL solution containing 8 mL of 1% Xylocaine and 2 mL of Depo-Medrol 40 were injected into the joint space. The needle was then removed. The patient tolerated the procedure well and had no immediate complications. Fluoroscopy time was 10 seconds. Reviewed by CAITIE Magallanes 10/28/2016 10:44 AEdited and Signed by Adan Flores MD 10/28/2016 04:34 P
== END ==
LOC: M RADPRO 11:12
PROVIDERS: ATTEND Physician Assistant Surgical
DX: M25.551 Pain in right hip (principal); M25.552 Pain in left hip; M87.051 Idiopathic aseptic necrosis of right femur; M16.0 Bilateral primary osteoarthritis of hip; Z88.8 Allergy status to other drugs, medicaments and biological substances; Z88.1 Allergy status to other antibiotic agents; Z91.011 Allergy to milk products
CPT/HCPCS: 20610; 77002; J1030; Q9960

== ENCOUNTER 2016-11-23 09:24 | Day surgery (SDC) | payer OTHER ==
[~2016-11-23] VITALS: Ht 175.3 cm; Wt 122.5 kg
[~2016-11-23 09:24] MED LIST changes: -CIPR-249 PO; -CONRAY-43 43% 50ML VIAL (Q9960) As Ordered ONE; -LIDOCAINE 1% MDV 20ML VIAL As Ordered ONE; +LR 1,000 ML IV ONE; -PERC5TAB12 PO; -methylPREDNISolone SUSP 40 MG/ML (DEPO-medrol) VIAL (J1030) As Ordered ONE
[2016-11-23] MEDS ORDERED: LIDOCAINE 1% SDV 5 ML VIAL SQ ONE (09:30)
[2016-11-23] MEDS ORDERED: CIPRODEX OTIC SUSP 7.5ML As Ordered ONE (10:53)
[2016-11-23] MEDS ORDERED: METHYLENE BLUE 0.5% (5MG/ML) 10 ML AMP (PROVAYBLUE)(Q9968 PER 1MG) As Ordered ONE (10:54)
[2016-11-23] MEDS ORDERED: LIDOCAINE W/EPINEPHRINE 1% 20ML VIAL As Ordered ONE (10:54)
[2016-11-23] MEDS ORDERED: EPINEPHrine 1MG/ML INJ 30ML MD-VIAL As Ordered ONE (10:54)
[2016-11-23] MEDS ORDERED: OXYMETAZOLINE NASAL SPRAY (AFRIN) As Ordered ONE (10:55)
[2016-11-23] MEDS ORDERED: MIDAZOLAM INJ 2 MG/2 ML VIAL (J2250) As Ordered ONE (11:00)
[2016-11-23] MEDS ORDERED: ROCURONIUM BROMIDE 50 MG/5 ML VIAL/SYRINGE As Ordered ONE (11:01)
[2016-11-23] MEDS ORDERED: fentaNYL 100 MCG/2 ML INJECTION (J3010) As Ordered ONE (11:01)
[2016-11-23] MEDS ORDERED: PROPOFOL 500 MG/50 ML VIAL As Ordered ONE (11:01)
[2016-11-23] MEDS ORDERED: fentaNYL 250 MCG/5 ML INJECTION (J3010) As Ordered ONE (11:01)
[2016-11-23] MEDS ORDERED: HYDROCORTISONE 100 MG/2 ML VIAL (J1720) As Ordered ONE (11:43)
[2016-11-23] MEDS ORDERED: ONDANSETRON 4MG/2ML VIAL (J2405) As Ordered ONE (12:42)
[2016-11-23] MEDS ORDERED: GLYCOPYRROLATE INJ 0.2 MG/ML 2 ML VIAL As Ordered ONE (12:43)
[2016-11-23] MEDS ORDERED: NEOSTIGMINE 10 MG/10 ML VIAL (J2710) As Ordered ONE (12:43)
[2016-11-23] MEDS ORDERED: HYDROmorphone HCL 2 MG/ML 1ML VIAL (J1170) As Ordered ONE (12:58)
[2016-11-23] MEDS ORDERED: ONDANSETRON 4 MG TAB (S0181) PO PRN (13:30)
[2016-11-23] MEDS ORDERED: IBUPROFEN 800 MG TAB PO PRN (13:30)
[2016-11-23] MEDS ORDERED: LR 1,000 ML IV SCH (13:30)
[2016-11-23] MEDS ORDERED: ONDANSETRON 4MG/2ML VIAL (J2405) IV PRN (13:30)
[2016-11-23] MEDS ORDERED: PERCOCET 5MG/325MG TAB PO PRN (13:30)
[2016-11-23] MEDS ORDERED: fentaNYL 100 MCG/2 ML INJECTION (J3010) IV PRN (13:30)
[2016-11-23 16:42] VITALS: BP 147/80
--- NOTE | 2016-12-08 20:53 | RO ---
DATE OF PROCEDURE: 11/23/2016 PREPROCEDURE DIAGNOSES: Chronic secretory otitis media on the left, chronic sinusitis and nasal septal deviation. POSTPROCEDURE DIAGNOSES: Chronic secretory otitis media on the left, chronic sinusitis and nasal septal deviation. PROCEDURE: Left myringotomy without tube, septoplasty, bilateral endoscopic ethmoidectomy with maxillary antrostomy. SURGEON: Dr. 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 DESCRIPTION OF PROCEDURE: Satisfactory general endotracheal anesthesia administered. First the left ear was examined and cleaned under the microscope. Tympanic membrane was easily visualized, appeared to be mildly tympanosclerotic, but there was no evidence of any acute inflammation noted. To rule out middle ear fluid as the cause of his conductive hearing loss, a small myringotomy was made under the microscope in the anterior inferior quadrant. No fluid was identified. It was elected at this point not to proceed with a ventilation tube. It was felt that the previously noted serous otitis may have resolved itself since scheduling the surgery. Next, preparations were made for nasal surgery. He was placed in reverse Trendelenburg position, the nose was prepped and draped in the usual fashion. First septoplasty was performed. 0.50% Marcaine with 1:100,000 epinephrine was injected into the nasal septum. A Ki incision was made on the left side of the nose. A mucoperichondrial flap and envelope was created on the left side of the nasal septum and carried down to the junction of the bony and cartilaginous septum. This was then with an elevator, and an envelope was then created on the right side of the septum. A Carlos scissors was used to make a cut high in the perpendicular plate in the midportion of the vomer, and a central segment of the bony septum was resected. Next, with the round knife on the Nell elevator, a strip of cartilage was resected from the floor of the nose, mobilizing the quadrilateral cartilage and creating a swinging door. Then, a central segment of cartilaginous septum was resected, preserving a 1 cm dorsal and caudal strut. Double-action rongeur was used to take down deflected portions of the perpendicular plate, as well. Finally, the maxillary crest spur was taken down after elevating mucoperiosteum off both sides of it with a chisel. A segment of the resected cartilage was morselized and placed back into the septal envelope. The incision was closed using an interrupted #5-0 chromic suture. Then, a #4-0 plain suture was placed in a [id number] fashion through the two leaves of mucoperichondrium to appose them. Completing the septum surgery, endoscopic surgery was started first on the left side. Adrenalin pledgets were placed in the left side of the nose for 3 minutes and 1% Xylocaine with 1:100,000 epinephrine was injected in the lateral nasal wall on the left side. The middle turbinate was medially infractured. Good exposure of the lateral nasal wall was obtained. The uncinate process was taken down with the microdebrider. The ethmoidal bulla was then resected completely with the microdebrider. The round lamella was then entered in the medial inferior quadrant and then working posteriorly and anteriorly the lamella bone and hyperplastic mucosa was resected removing all bony partitions in the ethmoid complex working posteriorly and anteriorly. The remnant uncinate process taken down superiorly and the superior ethmoid cell was entered. Next, natural maxillary sinus ostia was identified. It was cannulated and then using combination of side-biting and upbiting forceps it was enlarged. Adrenalin pledgets were placed in the side of the nose, while an identical procedure was performed on the right side. No significant bleeding was encountered during dissection. After creating an adequate antrostomy and ethmoidectomy cavity, adrenalin pledgets were placed for 3 minutes and these were removed. There was no significant bleeding. NasoPore sponge packing was placed in each side of the nose for support. The pharyngeal pack which had been placed at the beginning of the nasal surgery was removed and the patient was then awakened, extubated and sent to the recovery room in satisfactory condition. He will be discharged home on Percocet for pain, doxycycline 100 mg twice a day. He will be seen back in the office in 24 hours.
== END 2016-11-23 15:40 | disposition home or self-care (01) ==
LOC: M SDC 09:24
PROVIDERS: ATTEND Specialist
DX: J34.2 Deviated nasal septum (principal); J32.9 Chronic sinusitis, unspecified; H65.22 Chronic serous otitis media, left ear; E78.00 Pure hypercholesterolemia, unspecified; K21.9 Gastro-esophageal reflux disease without esophagitis; M12.9 Arthropathy, unspecified; M54.2 Cervicalgia; R29.898 Other symptoms and signs involving the musculoskeletal system; J45.909 Unspecified asthma, uncomplicated; J44.9 Chronic obstructive pulmonary disease, unspecified; G47.33 Obstructive sleep apnea (adult) (pediatric); Z88.8 Allergy status to other drugs, medicaments and biological substances; Z91.018 Allergy to other foods; Z79.899 Other long term (current) drug therapy; Z79.82 Long term (current) use of aspirin; Z87.891 Personal history of nicotine dependence

== ENCOUNTER 2017-01-01 08:41 | Emergency (ER) | payer OTHER ==
[~2017-01-01] VITALS: Ht 175.3 cm; Wt 122.7 kg
[~2017-01-01 08:41] MED LIST changes: -LR 1,000 ML IV ONE
[2017-01-01] MEDS ORDERED: CIPROFLOXACIN 500 MG TAB PO ONE (09:15)
[2017-01-01] MEDS ORDERED: PERCOCET 5MG/325MG TAB PO ONE (09:15)
[2017-01-01] MEDS ORDERED: ADACEL/BOOSTRIX VACCINE (DIPHTH/PERTUSS/ACELL/TETANUS)0.5ML SYR (90715) IM ONE (09:15)
[2017-01-01] MEDS ORDERED: LIDOCAINE W/EPINEPHRINE 1% 20ML VIAL SC ONE (09:15)
--- NOTE | 2017-01-01 09:53 | REP ---
Right hand four views: Comparison is 03/26/2014. There is a metallic nail impaled into the palmar surface of the right hand with the tip projecting between the third and fourth digit metacarpals. There is no fracture. or dislocation . Mineralization joint spaces are otherwise unremarkable. Signed by Adan Lindsay MD 01/01/2017 09:45 A
--- NOTE | 2017-01-01 10:06 | REP ---
Right hand four views post foreign body removal: Comparison is the right hand study performed earlier today. The impaled nail has been removed. There is no fracture or dislocation. No foreign body. Mineralization and joint spaces are normal. Signed by Adan Lindsay MD 01/01/2017 09:57 A
[2017-01-01] MEDS ORDERED: CIPR-249 PO (10:17)
[2017-01-01] MEDS ORDERED: PERC5TAB12 PO (10:28)
[2017-01-01 10:53] VITALS: BP 121/74
== END 2017-01-01 10:53 | disposition home or self-care (01) ==
LOC: M ED 08:41
DX: S61.441A Puncture wound with foreign body of right hand, initial encounter (principal); W45.0XXA Nail entering through skin, initial encounter; Y92.019 Unspecified place in single-family (private) house as the place of occurrence of the external cause; Y93.89 Activity, other specified; Y99.8 Other external cause status; J45.909 Unspecified asthma, uncomplicated; I25.10 Atherosclerotic heart disease of native coronary artery without angina pectoris; F41.9 Anxiety disorder, unspecified; Z79.899 Other long term (current) drug therapy; Z79.82 Long term (current) use of aspirin; Z88.1 Allergy status to other antibiotic agents; Z88.8 Allergy status to other drugs, medicaments and biological substances; Z91.011 Allergy to milk products; Z87.891 Personal history of nicotine dependence

== ENCOUNTER → 2017-01-29 | Outpatient (CLI) | payer OTHER ==
[~2017-01-29] MED LIST changes: +CIPR-249 PO; +PERC5TAB12 PO
[2017-01-29 16:56] LABS: ANION GAP 7 MEQ/L (8-16); BLOOD UREA NITROGEN 14 MG/DL (7-18); CALCIUM LEVEL 9.1 MG/DL (8.5-10.1); CARBON DIOXIDE LEVEL 26 MEQ/L (21-32); CHLORIDE LEVEL 107 MEQ/L (98-107); CREATININE FOR GFR 1.06 MG/DL (0.70-1.30); GLOMERULAR FILTRATION RATE > 60.0 (>56); GLUCOSE, FASTING 95 MG/DL (70-105); POTASSIUM SERUM 4.1 MEQ/L (3.5-5.1); SODIUM LEVEL 140 MEQ/L (136-145)
== END ==
LOC: M LAB 16:11
PROVIDERS: ATTEND Family Medicine
DX: Z01.818 Encounter for other preprocedural examination (principal)

== ENCOUNTER → 2017-01-29 | Outpatient (CLI) | payer OTHER ==
[2017-01-29 16:56] LABS: ANION GAP 8 MEQ/L (8-16); BLOOD UREA NITROGEN 14 MG/DL (7-18); CALCIUM LEVEL 9.3 MG/DL (8.5-10.1); CARBON DIOXIDE LEVEL 25 MEQ/L (21-32); CHLORIDE LEVEL 108 MEQ/L (98-107); CREATININE FOR GFR 1.06 MG/DL (0.70-1.30); GLOMERULAR FILTRATION RATE > 60.0 (>56); GLUCOSE, FASTING 95 MG/DL (70-105); PHOSPHORUS LEVEL 3.1 MG/DL (2.5-4.9); POTASSIUM SERUM 4.2 MEQ/L (3.5-5.1); SODIUM LEVEL 141 MEQ/L (136-145)
== END ==
LOC: M LAB 16:14
PROVIDERS: ATTEND Nurse Practitioner Family
DX: R60.0 Localized edema (principal)

== ENCOUNTER 2017-02-18 08:36 | Outpatient (RCR) | payer OTHER | END 2017-03-07 | LOC: M PT 08:36 | DX: Z96.641 Presence of right artificial hip joint (principal) | CPT/HCPCS: 97110 ==

== ENCOUNTER 2017-03-09 08:23 | Outpatient (RCR) | payer OTHER | END 2017-04-07 | LOC: M PT 08:23 | DX: Z96.641 Presence of right artificial hip joint (principal) | CPT/HCPCS: 97110 ==

== ENCOUNTER 2017-04-04 12:28 | Emergency (ER) | payer MEDICAID, OTHER, SELFPAY ==
[2017-04-04] MEDS: MORPHINE 4 MG/ML 1ML SYRINGE IM (15:43)
[2017-04-04] MEDS: NORCO 5/325MG TABLET (BULK FOR ED) PO ×2 (15:43)
[2017-04-04] MEDS: KETOROLAC 30 MG/ML VIAL (J1885) IM ×2 (15:43)
[2017-04-04] MEDS: MORPHINE 4 MG/ML 1ML VIAL (J2270) IM (15:43)
[2017-04-04] MEDS: KETOROLAC 30 MG/ML VIAL (J1885) IV ×2 (15:49)
== END 2017-04-04 16:07 | disposition home or self-care (01) ==
LOC: M ED 12:28
DX: M25.551 Pain in right hip (principal); W18.30XA Fall on same level, unspecified, initial encounter; Y92.009 Unspecified place in unspecified non-institutional (private) residence as the place of occurrence of the external cause; J44.9 Chronic obstructive pulmonary disease, unspecified; J45.909 Unspecified asthma, uncomplicated; G47.30 Sleep apnea, unspecified; M81.0 Age-related osteoporosis without current pathological fracture; G80.9 Cerebral palsy, unspecified; F41.9 Anxiety disorder, unspecified; Z79.52 Long term (current) use of systemic steroids; Z79.82 Long term (current) use of aspirin; Z79.899 Other long term (current) drug therapy; Z98.890 Other specified postprocedural states; Z96.9 Presence of functional implant, unspecified; Z88.8 Allergy status to other drugs, medicaments and biological substances
CPT/HCPCS: J1885; J2270

== ENCOUNTER 2017-05-25 11:53 | Emergency (ER) | payer OTHER ==
[2017-05-25] MEDS: ONDANSETRON 4MG/2ML VIAL (J2405) IV (12:20)
[2017-05-25] MEDS: MORPHINE 4 MG/ML 1ML VIAL (J2270) IV (12:22)
[2017-05-25 12:23] LABS: BASO # 0.1 10^3/uL (0.0-0.2); BASO % 0.8 % (0.0-1.0); EOS # 0.2 10^3/uL (0.0-0.50); EOS % 2.9 % (0.0-3.0); HEMATOCRIT 40.8 % (42.0-52.0); HEMOGLOBIN 13.7 g/dl (14.0-18.0); IMMATURE GRANULOCYTE % 0.3 % (0-3.0); LYMPH # 1.9 10^3/uL (1.5-4.5); LYMPH % 26.2 % (24.0-44.0); MEAN CORPUSCULAR HEMOGLOBIN 28.4 pg (27.0-33.0); MEAN CORPUSCULAR HGB CONC 33.6 g/dl (32.0-36.5); MEAN CORPUSCULAR VOLUME 84.6 fl (80.0-96.0); MONO # 0.6 10^3/uL (0.0-0.8); MONO % 8.3 % (0.0-5.0); NEUTROPHILS # 4.5 10^3/uL (1.8-7.7); NEUTROPHILS % 61.5 % (36.0-66.0); PLATELET COUNT, AUTOMATED 169 10^3/uL (150-450); RED BLOOD COUNT 4.82 10^6/uL (4.30-6.10); RED CELL DISTRIBUTION WIDTH 13.2 % (11.5-14.5); WHITE BLOOD COUNT 7.3 10^3/uL (4.0-10.0)
[2017-05-25 12:50] LABS: ALBUMIN 3.4 GM/DL (3.2-5.2); ALBUMIN/GLOBULIN RATIO 1.03 (1.00-1.93); ALKALINE PHOSPHATASE 88 U/L (45-117); ALT/SGPT 20 U/L (12-78); ANION GAP 8 MEQ/L (8-16); AST/SGOT 12 U/L (7-37); BILIRUBIN,TOTAL 0.3 MG/DL (0.2-1.0); BLOOD UREA NITROGEN 12 MG/DL (7-18); CALCIUM LEVEL 8.7 MG/DL (8.5-10.1); CARBON DIOXIDE LEVEL 26 MEQ/L (21-32); CHLORIDE LEVEL 109 MEQ/L (98-107); CREATININE FOR GFR 0.94 MG/DL (0.70-1.30); GLOMERULAR FILTRATION RATE > 60.0 (>56); GLUCOSE, FASTING 107 MG/DL (70-100); POTASSIUM SERUM 4.2 MEQ/L (3.5-5.1); SODIUM LEVEL 143 MEQ/L (136-145); TOTAL PROTEIN 6.7 GM/DL (6.4-8.2)
[2017-05-25] MEDS: IPRATROPIUM 0.5MG/ALBUTEROL 2.5MG INH SOL UD 3ML (DUONEB)(J7620) NEB (13:15)
[2017-05-25 13:29] LABS: INR 1.04; PROTHROMBIN TIME 13.7 SECONDS (12.4-14.5)
[2017-05-25] MEDS: PERCOCET 5MG/325MG TAB PO (14:05)
== END 2017-05-25 15:30 | disposition home or self-care (01) ==
LOC: M ED 11:53
DX: S70.02XA Contusion of left hip, initial encounter (principal); S39.012A Strain of muscle, fascia and tendon of lower back, initial encounter; W10.8XXA Fall (on) (from) other stairs and steps, initial encounter; Y92.098 Other place in other non-institutional residence as the place of occurrence of the external cause; J44.9 Chronic obstructive pulmonary disease, unspecified; I25.10 Atherosclerotic heart disease of native coronary artery without angina pectoris; I50.9 Heart failure, unspecified; E78.9 Disorder of lipoprotein metabolism, unspecified; Z88.8 Allergy status to other drugs, medicaments and biological substances; Z79.899 Other long term (current) drug therapy; Z79.82 Long term (current) use of aspirin; Z79.52 Long term (current) use of systemic steroids; Z79.51 Long term (current) use of inhaled steroids
CPT/HCPCS: J2270

== ENCOUNTER 2018-01-23 09:58 | Observation (INO) | payer OTHER ==
[2018-01-23] MEDS: IPRATROPIUM 0.5MG/ALBUTEROL 2.5MG INH SOL UD 3ML (DUONEB)(J7620) NEB ×4 (10:47→18:00)
[2018-01-23] MEDS: methylPREDNISolone INJ 125 MG/2 ML VIAL (J2930) IV (10:49)
[2018-01-23] MEDS: FUROSEMIDE 40 MG/4 ML VIAL (J1940) IV (10:49)
[2018-01-23 11:00] LABS: ANION GAP 9 MEQ/L (8-16); BLOOD UREA NITROGEN 10 MG/DL (7-18); CALCIUM LEVEL 9.3 MG/DL (8.5-10.1); CARBON DIOXIDE LEVEL 25 MEQ/L (21-32); CHLORIDE LEVEL 107 MEQ/L (98-107); CPK CREATINE PHOSPHOKINASE 96 U/L (39-308); CREATININE FOR GFR 1.32 MG/DL (0.70-1.30); GLOMERULAR FILTRATION RATE > 60.0 (>56); GLUCOSE, FASTING 114 MG/DL (70-100); MB/CK RELATIVE INDEX 1.25 (< OR =4); NT-PRO BNP 24 PG/ML (<125); SODIUM LEVEL 141 MEQ/L (136-145); TROPONIN I < 0.02 NG/ML (< 0.10)
[2018-01-23 11:04] LABS: BASO # 0.1 10^3/uL (0.0-0.2); BASO % 0.7 % (0.0-1.0); EOS # 0.4 10^3/uL (0.0-0.50); EOS % 4.3 % (0.0-3.0); HEMATOCRIT 47.6 % (42.0-52.0); HEMOGLOBIN 16.6 g/dl (13.5-17.5); IMMATURE GRANULOCYTE % 0.4 % (0-3.0); LYMPH # 2.1 10^3/uL (1.5-4.5); LYMPH % 20.7 % (24.0-44.0); MEAN CORPUSCULAR HEMOGLOBIN 30.9 pg (27.0-33.0); MEAN CORPUSCULAR HGB CONC 34.9 g/dl (32.0-36.5); MEAN CORPUSCULAR VOLUME 88.5 fl (80.0-96.0); MONO # 0.6 10^3/uL (0.0-0.8); MONO % 6.2 % (0.0-5.0); NEUTROPHILS % 67.7 % (36.0-66.0); PLATELET COUNT, AUTOMATED 201 10^3/uL (150-450); RED BLOOD COUNT 5.38 10^6/uL (4.30-6.10); RED CELL DISTRIBUTION WIDTH 12.8 % (11.5-14.5); WHITE BLOOD COUNT 10.3 10^3/uL (4.0-10.0)
[2018-01-23] MEDS: NS 1,000 ML IV (17:47)
[2018-01-23] MEDS: HEPARIN SOD (PORCINE) 5000 UNITS/ML VIAL SQ (22:05)
[2018-01-23] MEDS: methylPREDNISolone INJ 40 MG/1 ML VIAL (J2920) IV (22:05)
[2018-01-24 06:44] LABS: ANION GAP 8 MEQ/L (8-16); BLOOD UREA NITROGEN 16 MG/DL (7-18); CALCIUM LEVEL 9.3 MG/DL (8.5-10.1); CARBON DIOXIDE LEVEL 23 MEQ/L (21-32); CHLORIDE LEVEL 108 MEQ/L (98-107); CREATININE FOR GFR 0.97 MG/DL (0.70-1.30); GLOMERULAR FILTRATION RATE > 60.0 (>56); GLUCOSE, FASTING 158 MG/DL (70-100); SODIUM LEVEL 139 MEQ/L (136-145)
[2018-01-24] MEDS ORDERED: ALBUTEROL 90 MCG/ACT 8GM HFA INHALER INH (08:45)
[2018-01-24] MEDS: OMEPRAZOLE 20 MG CAP PO (08:55)
[2018-01-24] MEDS: ASPIRIN 325 MG TAB PO (08:55)
[2018-01-24] MEDS: HEPARIN SOD (PORCINE) 5000 UNITS/ML VIAL SQ (08:55)
[2018-01-24] MEDS: methylPREDNISolone INJ 40 MG/1 ML VIAL (J2920) IV (11:15)
[2018-01-24] MEDS ORDERED: IPRATROPIUM 0.5MG/ALBUTEROL 2.5MG INH SOL UD 3ML (DUONEB)(J7620) INH (12:00)
== END 2018-01-24 11:55 | disposition home or self-care (01) ==
LOC: M ED 09:58 → M ED INP 13:55 → M MS5PR 18:11
PROVIDERS: Hospitalist
DX: J44.1 Chronic obstructive pulmonary disease with (acute) exacerbation (principal); N17.9 Acute kidney failure, unspecified; I50.30 Unspecified diastolic (congestive) heart failure; Z79.82 Long term (current) use of aspirin; Z79.51 Long term (current) use of inhaled steroids; Z79.52 Long term (current) use of systemic steroids; Z79.899 Other long term (current) drug therapy
CPT/HCPCS: J1940

== ENCOUNTER 2018-05-30 08:47 | Emergency (ER) | payer OTHER ==
[~2018-05-30] VITALS: Ht 175.3 cm; Wt 122.7 kg
[~2018-05-30 08:47] MED LIST changes: -/MOXI40TA PO; +ARNU1INH INH; +ASPI-1 PO; -ASPI325T PO; +ASPI81TA26 PO; +AVEL1TAB2 PO; +BREO1INH3 INH; -CITA20TA4 PO; +CITA20TA6 PO; +CYCL5TAB PO; +HYDR-3715 PO; +IPRA0.00 INH; -IPRASOL4 INH; +NICO14DI20 EXT; -NICO14PA EXT; +NICO21DI3 TD; -NICO21PAT TD; +OXYC1TAB23 PO; -PERCOCET PO; +PRED-351 PO; -PRED10TA PO; -TRAZ-136 PO; +TRAZ-163 PO
[2018-05-30] MEDS ORDERED: ACETAMINOPHEN 500 MG TAB PO ONE (09:30)
[2018-05-30] MEDS ORDERED: LIDOCAINE 5% (LIDODERM) PATCH TD ONE (09:30)
[2018-05-30] MEDS ORDERED: diazePAM 5 MG TAB PO ONE (10:30)
[2018-05-30 10:31] LABS: APPEARANCE, URINE CLEAR (CLEAR); BACTERIA, URINE AUTO NEGATIVE (NEGATIVE); BILIRUBIN, URINE AUTO NEGATIVE (NEGATIVE); BLOOD, URINE BLOOD 1+ (NEGATIVE); COLOR, URINE YELLOW (YELLOW); GLUCOSE, URINE (UA) AUTO NEGATIVE (NEGATIVE); KETONE, URINE AUTO NEGATIVE (NEGATIVE); LEUKOCYTE ESTERASE, URINE AUTO NEGATIVE (NEGATIVE); MUCUS, URINE SMALL (NEGATIVE); NITRITE, URINE AUTO NEGATIVE (NEGATIVE); PROTEIN, URINE AUTO NEGATIVE (NEGATIVE); RBC, URINE AUTO 2 /HPF (0-3); SPECIFIC GRAVITY URINE AUTO 1.011 (1.002-1.035); SQUAMOUS EPITHELIAL CELL UR AU 0 /HPF (0-6); UROBILINOGEN, URINE AUTO 0.2 mg/dL (0.0-2.0); WBC, URINE AUTO 1 /HPF (0-3)
--- NOTE | 2018-05-30 10:51 | REP ---
PELVIS AND RIGHT HIP: AP view of the pelvis and AP and frog leg views of the right hip were performed. There is no acute fracture or dislocation. Mild degenerative changes are seen at the left hip joint with mild joint space narrowing, subchondral sclerosis and spurring. A total right hip prosthesis is noted in good position with no abnormal lucency along the margins of the prosthesis. IMPRESSION: No acute fracture or dislocation. Mild degenerative changes of the left hip joint. Total right hip prosthesis in good position. Electronically Signed by Adan Flores MD 05/30/2018 02:45 P
--- NOTE | 2018-05-30 12:02 | REP ---
CT ABDOMEN AND PELVIS WITHOUT CONTRAST: CT abdomen and pelvis performed without oral or IV contrast. Sagittal and coronal reconstruction images are performed. In the visualized lung bases, there is a 5 mm nodule in the lateral segment of the right middle lobe which is stable compared to the prior CT of the chest 06/02/2016. The liver, spleen, adrenals, pancreas and kidneys appear unremarkable. There is no renal or ureteral calculus and no hydroureteronephrosis. There is no abdominal aortic aneurysm with mild atherosclerotic calcification. I see no adenopathy. There is no free air or free fluid. No bowel wall thickening is seen. No pelvic mass is seen. There is a metallic right hip prosthesis. There are degenerative changes of the spine. IMPRESSION: No acute abnormality detected. Electronically Signed by Adan Flores MD 05/30/2018 02:47 P
[2018-05-30] MEDS ORDERED: LIDO5DIS41 TD (12:11)
[2018-05-30] MEDS ORDERED: NAPR-837 PO (12:11)
[2018-05-30] MEDS ORDERED: VALI5TAB PO (12:13)
[2018-05-30 12:20] VITALS: BP 115/74
[2018-05-30] MEDS ORDERED: **NOTE PATIENT COMMENT** MISC XX SCH (21:00)
== END 2018-05-30 12:29 | disposition home or self-care (01) ==
LOC: M ED 08:47
DX: M54.5 Low back pain (principal); R31.21 Asymptomatic microscopic hematuria; I50.9 Heart failure, unspecified; J44.9 Chronic obstructive pulmonary disease, unspecified; G47.30 Sleep apnea, unspecified; F41.9 Anxiety disorder, unspecified; Z96.649 Presence of unspecified artificial hip joint; Z95.818 Presence of other cardiac implants and grafts; Z88.8 Allergy status to other drugs, medicaments and biological substances; Z79.51 Long term (current) use of inhaled steroids

== ENCOUNTER 2019-11-02 09:54 | Emergency (ER) | payer MEDICAID, OTHER, SELFPAY ==
[~2019-11-02] VITALS: Ht 175.3 cm; Wt 115.6 kg
[~2019-11-02 09:54] MED LIST changes: +LIDO5DIS41 TD; +NAPR-837 PO; +OMEP40CA97 PO; -TRAZ-163 PO; +TRAZ-257 PO; +VALI5TAB PO
[2019-11-02] MEDS ORDERED: ASPI81TA86 PO (10:14)
[2019-11-02] MEDS ORDERED: IBUP200T45 PO (10:14)
[2019-11-02 11:06] LABS: BASO # 0.1 10^3/uL (0.0-0.2); BASO % 1.2 % (0.0-1.0); EOS # 0.3 10^3/uL (0.0-0.5); EOS % 3.6 % (0.0-3.0); HEMATOCRIT 40.8 % (42.0-52.0); HEMOGLOBIN 14.2 g/dl (13.5-17.5); LYMPH # 1.9 10^3/uL (1.5-5.0); MEAN CORPUSCULAR HEMOGLOBIN 30.4 pg (27.0-33.0); MEAN CORPUSCULAR HGB CONC 34.8 g/dl (32.0-36.5); MEAN CORPUSCULAR VOLUME 87.4 fl (80.0-96.0); MONO # 0.7 10^3/uL (0.0-0.8); MONO % 8.9 % (0.0-5.0); NEUTROPHILS # 4.8 10^3/uL (1.5-8.5); NEUTROPHILS % 61.8 % (36.0-66.0); PLATELET COUNT, AUTOMATED 178 10^3/uL (150-450); RED BLOOD COUNT 4.67 10^6/uL (4.30-6.10); WHITE BLOOD COUNT 7.8 10^3/uL (4.0-10.0)
[2019-11-02 11:35] LABS: BLOOD UREA NITROGEN 17 MG/DL (7-18); CALCIUM LEVEL 9.4 MG/DL (8.5-10.1); CARBON DIOXIDE LEVEL 26 MEQ/L (21-32); CHLORIDE LEVEL 108 MEQ/L (98-107); CPK CREATINE PHOSPHOKINASE 157 U/L (39-308); CREATININE FOR GFR 0.92 MG/DL (0.70-1.30); GLOMERULAR FILTRATION RATE > 60.0 (>56); GLUCOSE, FASTING 103 MG/DL (70-100); MB/CK RELATIVE INDEX 1.27 (< OR =4); POTASSIUM SERUM 4.1 MEQ/L (3.5-5.1); SODIUM LEVEL 140 MEQ/L (136-145); TROPONIN I < 0.02 NG/ML (< 0.10)
[2019-11-02 12:47] VITALS: BP 141/95
--- NOTE | 2019-11-15 13:02 | ECGEPIP ---
[facility] - ED Test Date: 2019-11-02 Pat Name: STEPH MCKEON Department: Room: - Gender: Male Oncology Consultant: naomy : 1965 Requested By: Federico Lombardo Order Number: [id number] Reading MD: Soumya Cohn Measurements Intervals [place] Rate: 63 P: 50 AK: 211 QRS: 42 QRSD: 88 T: 39 QT: 387 QTc: 397 Interpretive Statements SINUS RHYTHM WITH FIRST DEGREE AV BLOCK ABNORMAL ECG SEE SCANNED DOWNTIME REPORT
== END 2019-11-02 12:45 | disposition home or self-care (01) ==
LOC: M ED 09:54
DX: R55 Syncope and collapse (principal); M25.572 Pain in left ankle and joints of left foot; I44.0 Atrioventricular block, first degree; J44.9 Chronic obstructive pulmonary disease, unspecified; F41.9 Anxiety disorder, unspecified; F17.200 Nicotine dependence, unspecified, uncomplicated; Z88.8 Allergy status to other drugs, medicaments and biological substances; Z79.899 Other long term (current) drug therapy; Z79.51 Long term (current) use of inhaled steroids; Z79.82 Long term (current) use of aspirin

== ENCOUNTER 2019-11-29 02:07 | Emergency (ER) | payer MEDICAID, SELFPAY ==
[~2019-11-29] VITALS: Ht 170.2 cm; Wt 140.0 kg
[~2019-11-29 02:07] MED LIST changes: +ASPI81TA86 PO; +IBUP200T45 PO
[2019-11-29] MEDS ORDERED: LORazepam 2 MG/ML VIAL IV STA (02:26)
[2019-11-29 02:29] LABS: BASO # 0.1 10^3/uL (0.0-0.2); BASO % 0.7 % (0.0-1.0); EOS # 0.3 10^3/uL (0.0-0.5); EOS % 2.2 % (0.0-3.0); HEMOGLOBIN 14.1 g/dl (13.5-17.5); LYMPH # 3.4 10^3/uL (1.5-5.0); LYMPH % 27.8 % (24.0-44.0); MEAN CORPUSCULAR HEMOGLOBIN 29.6 pg (27.0-33.0); MEAN CORPUSCULAR HGB CONC 34.4 g/dl (32.0-36.5); MEAN CORPUSCULAR VOLUME 86.1 fl (80.0-96.0); MONO % 8.1 % (0.0-5.0); NEUTROPHILS # 7.4 10^3/uL (1.5-8.5); NEUTROPHILS % 60.7 % (36.0-66.0); PLATELET COUNT, AUTOMATED 207 10^3/uL (150-450); RED BLOOD COUNT 4.76 10^6/uL (4.30-6.10); WHITE BLOOD COUNT 12.2 10^3/uL (4.0-10.0)
--- NOTE | 2019-11-29 02:45 | REPVR ---
PROCEDURE INFORMATION: Exam: XR Chest, 1 View Exam date and time: 11/29/19 (2:26am) Age: 54 years old Clinical indication: Chest pain TECHNIQUE: Imaging protocol: Portable CXR Views: 1 view COMPARISON: Portable CXR of 01/23/18 FINDINGS: Lungs: Unremarkable. No consolidation. Pleural space: Unremarkable. No pleural effusions. No pneumothorax. Heart/Mediastinum: Unremarkable. No cardiomegaly. Bones/joints: Unremarkable. IMPRESSION: No acute findings. The lung colindres remain clear. Electronically signed by: Ines Farmer On 11/29/2019 02:44:30 AM
[2019-11-29 02:57] LABS: ALBUMIN 3.4 GM/DL (3.2-5.2); ALT/SGPT 28 U/L (12-78); BILIRUBIN,DIRECT < 0.1 MG/DL (0.0-0.2); BILIRUBIN,TOTAL 0.4 MG/DL (0.2-1.0); ETHYL ALCOHOL (ETHANOL) < 0.003 % (0.000-0.010); LIPASE 98 U/L (73-393); TOTAL PROTEIN 6.8 GM/DL (6.4-8.2)
--- NOTE | 2019-11-29 04:17 | ECGEPIP ---
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
[2019-11-29 07:30] VITALS: BP 127/84
== END 2019-11-29 07:49 | disposition home or self-care (01) ==
LOC: M ED 02:07
DX: R07.89 Other chest pain (principal); F43.0 Acute stress reaction; I50.9 Heart failure, unspecified; J44.9 Chronic obstructive pulmonary disease, unspecified; Z95.818 Presence of other cardiac implants and grafts; F17.200 Nicotine dependence, unspecified, uncomplicated; Z79.51 Long term (current) use of inhaled steroids
CPT/HCPCS: 71045; 80047; 80076; 83690; 85025; 93005; 93041; 94760; 96374; 99285; G0480; J2060

== ENCOUNTER → 2019-12-25 | Outpatient (CLI) | payer MEDICAID ==
[2019-12-25 11:29] LABS: HEMATOCRIT 41.2 % (42.0-52.0); HEMOGLOBIN 13.6 g/dl (13.5-17.5); MEAN CORPUSCULAR HEMOGLOBIN 29.4 pg (27.0-33.0); PLATELET COUNT, AUTOMATED 170 10^3/uL (150-450); RED BLOOD COUNT 4.63 10^6/uL (4.30-6.10); WHITE BLOOD COUNT 7.7 10^3/uL (4.0-10.0)
[2019-12-25 12:15] LABS: BLOOD UREA NITROGEN 17 MG/DL (7-18); CARBON DIOXIDE LEVEL 25 MEQ/L (21-32); CHLORIDE LEVEL 109 MEQ/L (98-107); CREATININE FOR GFR 0.98 MG/DL (0.70-1.30); GLOMERULAR FILTRATION RATE > 60.0 (>56); GLUCOSE, FASTING 131 MG/DL (70-100); NT-PRO BNP 36 PG/ML (<125); SODIUM LEVEL 140 MEQ/L (136-145)
== END ==
LOC: M LAB 08:53
PROVIDERS: ATTEND Internal Medicine Cardiovascular Disease
DX: I50.9 Heart failure, unspecified (principal); R55 Syncope and collapse; R06.02 Shortness of breath; I47.2 Ventricular tachycardia; Z79.82 Long term (current) use of aspirin

== ENCOUNTER → 2020-01-23 | Outpatient (CLI) | payer OTHER ==
[2020-01-23 19:57] LABS: BASO # 0.1 10^3/uL (0.0-0.2); BASO % 0.9 % (0.0-1.0); EOS # 0.2 10^3/uL (0.0-0.5); EOS % 2.4 % (0.0-3.0); HEMATOCRIT 43.3 % (42.0-52.0); HEMOGLOBIN 14.1 g/dl (13.5-17.5); LYMPH # 2.2 10^3/uL (1.5-5.0); LYMPH % 22.4 % (24.0-44.0); MEAN CORPUSCULAR HEMOGLOBIN 28.4 pg (27.0-33.0); MEAN CORPUSCULAR HGB CONC 32.6 g/dl (32.0-36.5); MEAN CORPUSCULAR VOLUME 87.3 fl (80.0-96.0); MONO # 0.8 10^3/uL (0.0-0.8); MONO % 8.1 % (0.0-5.0); NEUTROPHILS # 6.5 10^3/uL (1.5-8.5); NEUTROPHILS % 65.9 % (36.0-66.0); PLATELET COUNT, AUTOMATED 194 10^3/uL (150-450); RED BLOOD COUNT 4.96 10^6/uL (4.30-6.10); WHITE BLOOD COUNT 9.8 10^3/uL (4.0-10.0)
[2020-01-23 20:01] LABS: ALBUMIN 3.7 GM/DL (3.2-5.2); ALT/SGPT 23 U/L (12-78); BILIRUBIN,TOTAL 0.4 MG/DL (0.2-1.0); BLOOD UREA NITROGEN 16 MG/DL (7-18); C REACTIVE PROTEIN QUANTITATIV 0.86 MG/DL (0.00-0.30); CALCIUM LEVEL 8.7 MG/DL (8.5-10.1); CARBON DIOXIDE LEVEL 25 MEQ/L (21-32); CHLORIDE LEVEL 110 MEQ/L (98-107); CREATININE FOR GFR 1.07 MG/DL (0.70-1.30); GLOMERULAR FILTRATION RATE > 60.0 (>56); GLUCOSE, FASTING 96 MG/DL (70-100); POTASSIUM SERUM 3.9 MEQ/L (3.5-5.1); SODIUM LEVEL 140 MEQ/L (136-145); URIC ACID 6.2 MG/DL (3.5-7.2)
[2020-01-23 20:27] LABS: ERYTHROCYTE SEDIMENTATION RATE 11 mm/hr (0-20)
--- NOTE | 2020-02-09 07:41 | REP ---
INDICATION: PAIN COMPARISON: None. TECHNIQUE: AP, lateral, bilateral oblique views right and left 1st toe. FINDINGS: Right 1st toe demonstrates periarticular sclerosis and marginal spurring along with joint space narrowing at the metatarsophalangeal joint along with minimal periarticular sclerosis and joint space narrowing at the interphalangeal joint. No periarticular erosive changes or loose bodies noted. Left 1st toe demonstrates moderate periarticular sclerosis, joint space narrowing, and marginal spurring at the metatarsophalangeal joint along with minimal periarticular sclerosis at the interphalangeal joint. No periarticular erosive changes or loose bodies noted. 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 <Electronically signed by Nitesh Escobedo > 02/09/20 [id number]
== END ==
LOC: M WUC 17:03
PROVIDERS: ATTEND Physician Assistant
DX: M19.071 Primary osteoarthritis, right ankle and foot (principal); M19.072 Primary osteoarthritis, left ankle and foot

== ENCOUNTER → 2020-03-29 | Outpatient (REF) | payer OTHER ==
[2020-03-29 14:36] LABS: CHOLESTEROL RISK RATIO 4.204 (<5); FOLATE 9.1 NG/ML; TOTAL 25(OH) VITAMIN D 20.6 NG/ML (30.0-100.0)
[2020-03-29 15:51] LABS: HEMOGLOBIN A1c 5.3 %
== END ==
LOC: M SFHCADAM 09:05
PROVIDERS: ATTEND Physician Assistant
DX: G47.33 Obstructive sleep apnea (adult) (pediatric) (principal); R73.09 Other abnormal glucose; E78.00 Pure hypercholesterolemia, unspecified; Z12.5 Encounter for screening for malignant neoplasm of prostate; M79.675 Pain in left toe(s)

== ENCOUNTER → 2020-04-05 | Outpatient (CLI) | payer OTHER ==
--- NOTE | 2020-04-05 18:41 | REP ---
INDICATION: LUNG SCREENING. COMPARISON: Comparison is made with prior CT studies of the chest from 02 June 2016 and 31 October 2015.. TECHNIQUE: Helical scanning is acquired and 3 mm axial images are provided, at lung only window settings. Low-dose acquisition. FINDINGS: Preliminary digital tube puller radiograph demonstrates a loop recorder. There is a stable 9 mm ground-glass opacity in the region of the right middle lobe. Review of the [address] with sagittal reconstructions demonstrate that this is actually a perifissural nodule. In any event, it is completely unchanged from the October 31, 2015 prior study and is benign. In addition, today's study demonstrates a 6 mm noncalcified pulmonary nodule elsewhere in the right middle lobe anterolaterally. This projects on page 62 of 97 in series 201 of today's study. It is a present on prior studies as well. It measures 6.4 mm today. It was measured at 5.6 mm in 2016. It may be very slightly larger. No new pulmonary nodule is seen. No lung mass or infiltrate is observed. IMPRESSION: Lung RADS category 2 findings. Repeat screening study suggested in 1 year. <Electronically signed by Andrea Cancino > 04/05/20 [id number]
== END ==
LOC: M RAD 11:05
PROVIDERS: ATTEND Physician Assistant
DX: Z12.2 Encounter for screening for malignant neoplasm of respiratory organs (principal); F17.218 Nicotine dependence, cigarettes, with other nicotine-induced disorders; R91.8 Other nonspecific abnormal finding of lung field

== ENCOUNTER → 2020-05-07 | Outpatient (CLI) | payer MEDICAID, OTHER ==
--- NOTE | 2020-05-07 09:38 | PFTRPT ---
Height: 68.00 Inches Weight: 255.00 Lbs BSA: 2.27 Diagnosis: J45.20 DATE: 05/07/2020 ORDERED BY: MISTY Mcrae Pre and post bronchodilator studies have excellent technical quality. Forced vital capacity is normal. FEV1 is generally in proportion. Obstructive index is therefore normal. Expiratory limit of the flow-volume loop is normal. Despite this, significant bronchodilator response was identified. Total lung capacity is normal. Residual volume is in proportion. Diffusing capacity is normal. Hemoglobin is acceptable at 14.5 Airway resistance and conductance are normal. IMPRESSION: Despite normal baseline parameters, bronchodilator response is identified. Please correlate clinically. MTDD
== END ==
LOC: M CARPUL 08:51
PROVIDERS: ATTEND Physician Assistant
DX: J45.20 Mild intermittent asthma, uncomplicated (principal)

== ENCOUNTER → 2020-05-13 | Outpatient (CLI) | payer MEDICAID, OTHER ==
--- NOTE | 2020-05-15 08:22 | SLEEPCENT ---
NOCTURNAL POLYSOMNOGRAPHY DATE: 05/13/2020 ORDERED BY: MISTY Mcrae Nocturnal polysomnography was performed for retitration of pressure therapy in this patient with obstructive sleep apnea syndrome. For testing a ResMed AirFit F20 full face mask of large size was used, 4 cm of water pressure were applied to the circuit, and the lights were extinguished. 7 hours and 41 minutes of data were reviewed. There were 382 minutes of sleep identified. Sleep latency was short at 2 minutes. REM latency was somewhat delayed at 164 minutes. Sleep architecture improved as pressure was optimized. There were four REM cycles noted. Overall sleep efficiency was 83.9%. The electrocardiogram showed a sinus rhythm with an average heart rate of 80 beats per minute. EEG showed normal waveforms for wake and sleep. Respiratory events were found best palliated with CPAP at a pressure of +10 with some minor limb activity. Limb movement arousal index on this occasion was 7.1. IMPRESSION: Obstructive sleep apnea syndrome (G47.33). RECOMMENDATION: Nightly use of pressure therapy 10 cm of water.
== END ==
LOC: M SLEEP 20:00
PROVIDERS: ATTEND Physician Assistant
DX: G47.33 Obstructive sleep apnea (adult) (pediatric) (principal)

== ENCOUNTER → 2020-06-13 | Outpatient (REF) | payer OTHER ==
[2020-06-14 13:07] LABS: BLOOD UREA NITROGEN 17 MG/DL (7-18); CALCIUM LEVEL 8.8 MG/DL (8.5-10.1); CARBON DIOXIDE LEVEL 28 MEQ/L (21-32); CHLORIDE LEVEL 109 MEQ/L (98-107); CREATININE FOR GFR 1.01 MG/DL (0.70-1.30); GLOMERULAR FILTRATION RATE > 60.0 (>56); GLUCOSE, FASTING 112 MG/DL (70-100); POTASSIUM SERUM 4.9 MEQ/L (3.5-5.1); SODIUM LEVEL 139 MEQ/L (136-145); URIC ACID 5.1 MG/DL (3.5-7.2)
== END ==
LOC: M SFHCADAM 15:55
PROVIDERS: ATTEND Family Medicine
DX: M10.9 Gout, unspecified (principal)

== ENCOUNTER 2020-08-26 17:58 | Emergency (ER) | payer MEDICAID, OTHER ==
[~2020-08-26] VITALS: Ht 175.3 cm; Wt 125.0 kg
[~2020-08-26 17:58] MED LIST changes: +OMEP40CA4 PO; -OMEP40CA97 PO
[2020-08-26 17:59] VITALS: BP 148/82
== END 2020-08-26 22:39 | disposition left against medical advice (07) ==
LOC: M ED 17:58
DX: Z53.21 Procedure and treatment not carried out due to patient leaving prior to being seen by health care provider (principal)

== ENCOUNTER → 2020-08-29 | Outpatient (REF) | payer OTHER ==
[2020-08-30 13:09] LABS: BASO # 0.1 10^3/uL (0.0-0.2); BASO % 0.9 % (0.0-1.0); EOS # 0.4 10^3/uL (0.0-0.5); EOS % 3.9 % (0.0-3.0); HEMOGLOBIN 14.1 g/dl (13.5-17.5); LYMPH # 2.3 10^3/uL (1.5-5.0); MEAN CORPUSCULAR HEMOGLOBIN 28.6 pg (27.0-33.0); MEAN CORPUSCULAR HGB CONC 32.8 g/dl (32.0-36.5); MEAN CORPUSCULAR VOLUME 87.2 fl (80.0-96.0); MONO # 0.9 10^3/uL (0.0-0.8); MONO % 9.9 % (2.0-8.0); NEUTROPHILS # 5.3 10^3/uL (1.5-8.5); NEUTROPHILS % 58.7 % (36.0-66.0); PLATELET COUNT, AUTOMATED 171 10^3/uL (150-450); RED BLOOD COUNT 4.93 10^6/uL (4.30-6.10)
[2020-08-30 13:36] LABS: ALBUMIN 3.8 GM/DL (3.2-5.2); ALT/SGPT 36 U/L (12-78); BILIRUBIN,TOTAL 0.3 MG/DL (0.2-1.0); BLOOD UREA NITROGEN 16 MG/DL (7-18); CALCIUM LEVEL 8.8 MG/DL (8.5-10.1); CARBON DIOXIDE LEVEL 25 MEQ/L (21-32); CHLORIDE LEVEL 108 MEQ/L (98-107); CREATININE FOR GFR 1.02 MG/DL (0.70-1.30); GLOMERULAR FILTRATION RATE > 60.0 (>56); GLUCOSE, FASTING 82 MG/DL (70-100); RHEUMATOID FACTOR QUANT < 10.0 IU/ML (<15.0); SODIUM LEVEL 139 MEQ/L (136-145)
[2020-08-30 13:48] LABS: ERYTHROCYTE SEDIMENTATION RATE 11 mm/hr (0-20)
== END ==
LOC: M SFHCADAM 15:29
PROVIDERS: ATTEND Physician Assistant
DX: M25.562 Pain in left knee (principal); M1A.0790 Idiopathic chronic gout, unspecified ankle and foot, without tophus (tophi)

== ENCOUNTER → 2020-12-17 | Outpatient (REF) | payer OTHER ==
[2020-12-17 17:20] LABS: ALBUMIN 3.7 GM/DL (3.2-5.2); ALT/SGPT 36 U/L (12-78); BILIRUBIN,TOTAL 0.3 MG/DL (0.2-1.0); BLOOD UREA NITROGEN 15 MG/DL (7-18); CARBON DIOXIDE LEVEL 25 MEQ/L (21-32); CHLORIDE LEVEL 110 MEQ/L (98-107); GLOMERULAR FILTRATION RATE > 60.0 (>56); GLUCOSE, FASTING 107 MG/DL (70-100); POTASSIUM SERUM 3.8 MEQ/L (3.5-5.1); SODIUM LEVEL 140 MEQ/L (136-145); TOTAL PROTEIN 7.3 GM/DL (6.4-8.2)
== END ==
LOC: M SFHCADAM 15:08
PROVIDERS: ATTEND Physician Assistant
DX: E55.9 Vitamin D deficiency, unspecified (principal); M10.9 Gout, unspecified; J44.9 Chronic obstructive pulmonary disease, unspecified; F17.218 Nicotine dependence, cigarettes, with other nicotine-induced disorders

== ENCOUNTER → 2021-06-23 | Outpatient (REF) | payer OTHER ==
[~2021-06-23] MED LIST changes: -DOXY150C PO; +DOXY150C3 PO; -IBUP200T45 PO; +IBUP200T46 PO
[2021-06-23 13:34] LABS: BASO # 0.1 10^3/uL (0.0-0.2); BASO % 0.9 % (0.0-1.0); EOS # 0.5 10^3/uL (0.0-0.5); EOS % 4.5 % (0.0-3.0); HEMATOCRIT 47.2 % (42.0-52.0); HEMOGLOBIN 15.5 g/dl (13.5-17.5); LYMPH # 2.5 10^3/uL (1.5-5.0); LYMPH % 24.4 % (24.0-44.0); MEAN CORPUSCULAR HEMOGLOBIN 29.4 pg (27.0-33.0); MEAN CORPUSCULAR HGB CONC 32.8 g/dl (32.0-36.5); MEAN CORPUSCULAR VOLUME 89.4 fl (80.0-96.0); MONO # 1.1 10^3/uL (0.0-0.8); MONO % 10.6 % (2.0-8.0); NEUTROPHILS % 58.6 % (36.0-66.0); PLATELET COUNT, AUTOMATED 172 10^3/uL (150-450); RED BLOOD COUNT 5.28 10^6/uL (4.30-6.10); WHITE BLOOD COUNT 10.2 10^3/uL (4.0-10.0)
[2021-06-23 14:05] LABS: ALBUMIN 3.6 GM/DL (3.2-5.2); ALT/SGPT 38 U/L (12-78); BILIRUBIN,TOTAL 0.2 MG/DL (0.2-1.0); BLOOD UREA NITROGEN 12 MG/DL (7-18); CALCIUM LEVEL 9.1 MG/DL (8.5-10.1); CARBON DIOXIDE LEVEL 27 MEQ/L (21-32); CHLORIDE LEVEL 107 MEQ/L (98-107); CHOLESTEROL LEVEL 185 MG/DL (<200); CHOLESTEROL RISK RATIO 4.868 (<5); CREATININE FOR GFR 1.02 MG/DL (0.70-1.30); FREE T4 0.83 NG/DL (0.76-1.46); GLOMERULAR FILTRATION RATE > 60.0 (>56); GLUCOSE, FASTING 137 MG/DL (70-100); HDL CHOLESTEROL 38 MG/DL (>40); LDL CHOLESTEROL 100 MG/DL (<100); NON-HDL-C 147 MG/DL; NT-PRO BNP 38 PG/ML (<125); POTASSIUM SERUM 4.3 MEQ/L (3.5-5.1); SODIUM LEVEL 140 MEQ/L (136-145); TRIGLYCERIDES LEVEL 237 MG/DL (<150)
== END ==
LOC: M SFHCADAM 09:55
PROVIDERS: ATTEND Physician Assistant
DX: R60.0 Localized edema (principal); R06.00 Dyspnea, unspecified; R53.82 Chronic fatigue, unspecified; Z12.5 Encounter for screening for malignant neoplasm of prostate

== ENCOUNTER 2021-08-09 10:14 | Observation (INO) | payer OTHER ==
[2021-08-09] VITALS (8 sets, daily range): BP systolic 129–160; BP diastolic 68–86; O2SAT 91–93
[~2021-08-09] VITALS: Ht 175.3 cm; Wt 139.0 kg
[~2021-08-09 10:14] MED LIST changes: +ALBU2.5V10 INH; -ALBU83IN INH; +AZITHROMYCIN 250MG TABLET PO SCH
[2021-08-09] MEDS ORDERED: NS 500 ML IV ONE (10:20)
[2021-08-09] MEDS ORDERED: fentaNYL 100 MCG/2 ML INJECTION IV ONE (10:25)
[2021-08-09] MEDS ORDERED: ONDANSETRON 4MG/2ML VIAL IV ONE (10:25)
[2021-08-09] MEDS ORDERED: ISOVUE-370 76% 100ML VIAL As Ordered ONE (10:25)
[2021-08-09] MEDS ORDERED: HOME MED LIST COMPLETE! XX SCH (11:00)
[2021-08-09 11:25] LABS: BASO # 0.1 10^3/uL (0.0-0.2); BASO % 0.6 % (0.0-1.0); EOS # 0.3 10^3/uL (0.0-0.5); HEMATOCRIT 41.5 % (42.0-52.0); HEMOGLOBIN 14.2 g/dl (13.5-17.5); LYMPH # 2.1 10^3/uL (1.5-5.0); MEAN CORPUSCULAR HEMOGLOBIN 30.1 pg (27.0-33.0); MEAN CORPUSCULAR HGB CONC 34.2 g/dl (32.0-36.5); MEAN CORPUSCULAR VOLUME 88.1 fl (80.0-96.0); MONO % 8.8 % (2.0-8.0); NEUTROPHILS # 7.9 10^3/uL (1.5-8.5); NEUTROPHILS % 68.8 % (36.0-66.0); PLATELET COUNT, AUTOMATED 144 10^3/uL (150-450); RED BLOOD COUNT 4.71 10^6/uL (4.30-6.10); WHITE BLOOD COUNT 11.5 10^3/uL (4.0-10.0)
[2021-08-09] MEDS: COMBIVENT RESPIMAT 100-20MCG INHALER 4GM INH SCH ×3 (11:31→13:22)
[2021-08-09 11:36] LABS: INR 0.93; PARTIAL THROMBOPLASTIN TIME 25.1 SECONDS (25.9-37.0); PROTHROMBIN TIME 12.9 SECONDS (12.7-14.5)
[2021-08-09 11:49] LABS: ALBUMIN 3.2 GM/DL (3.2-5.2); ALT/SGPT 49 U/L (12-78); AMYLASE 139 U/L (25-115); BILIRUBIN,DIRECT < 0.1 MG/DL (0.0-0.2); BILIRUBIN,TOTAL 0.4 MG/DL (0.2-1.0); ETHYL ALCOHOL (ETHANOL) < 0.003 % (0.000-0.010); LIPASE 661 U/L (73-393); TOTAL PROTEIN 6.8 GM/DL (6.4-8.2)
[2021-08-09 11:51] LABS: CK-MB VALUE MASS 4.6 NG/ML (<3.6); MB/CK RELATIVE INDEX 2.38 (< OR =4)
[2021-08-09] MEDS ORDERED: ONDANSETRON 4MG/2ML VIAL IV PRN (11:55)
[2021-08-09] MEDS ORDERED: ALBUTEROL 90 MCG/ACT 8GM HFA INHALER INH PRN (11:55)
[2021-08-09] MEDS ORDERED: KETOROLAC 30 MG/ML 1ML VIAL IV PRN (11:55)
[2021-08-09] MEDS: SENOKOT S TAB PO SCH ×2 (12:11→19:47)
[2021-08-09 12:14] LABS: RSV AMPLIFICATION NEGATIVE (NEGATIVE)
[2021-08-09] MEDS ORDERED: FUROSEMIDE 40 MG TAB PO ONE (13:00)
[2021-08-09] MEDS: PANTOPRAZOLE 40MG VIAL IV SCH (13:27)
[2021-08-09] MEDS: methylPREDNISolone 40MG 1ML VIAL IV SCH (13:28)
[2021-08-09] MEDS: IPRATROPIUM 0.5MG/ALBUTEROL 2.5MG INH SOL UD 3ML (DUONEB) NEB SCH ×3 (15:52→23:11)
[2021-08-09] MEDS: DIMETHICONE 2% OINTMENT(VANICREAM) 70GM TUBE TOP SCH (21:37)
[2021-08-10] VITALS (11 sets, daily range): BP systolic 123–143; BP diastolic 70–85; O2SAT 91–94
[2021-08-10] MEDS: methylPREDNISolone 40MG 1ML VIAL IV SCH (01:29)
[2021-08-10] MEDS: IPRATROPIUM 0.5MG/ALBUTEROL 2.5MG INH SOL UD 3ML (DUONEB) NEB SCH ×2 (03:58→08:32)
[2021-08-10 06:06] LABS: BASO % 0.1 % (0.0-1.0); EOS % 0.1 % (0.0-3.0); HEMATOCRIT 43.1 % (42.0-52.0); HEMOGLOBIN 14.2 g/dl (13.5-17.5); LYMPH # 0.8 10^3/uL (1.5-5.0); LYMPH % 5.5 % (24.0-44.0); MEAN CORPUSCULAR HEMOGLOBIN 29.6 pg (27.0-33.0); MEAN CORPUSCULAR HGB CONC 32.9 g/dl (32.0-36.5); MEAN CORPUSCULAR VOLUME 89.8 fl (80.0-96.0); MONO # 0.4 10^3/uL (0.0-0.8); MONO % 2.4 % (2.0-8.0); NEUTROPHILS # 13.9 10^3/uL (1.5-8.5); NEUTROPHILS % 91.3 % (36.0-66.0); PLATELET COUNT, AUTOMATED 150 10^3/uL (150-450); WHITE BLOOD COUNT 15.2 10^3/uL (4.0-10.0)
[2021-08-10 06:41] LABS: ALBUMIN 3.1 GM/DL (3.2-5.2); ALT/SGPT 33 U/L (12-78); BILIRUBIN,TOTAL 0.3 MG/DL (0.2-1.0); BLOOD UREA NITROGEN 22 MG/DL (7-18); CALCIUM LEVEL 9.5 MG/DL (8.5-10.1); CARBON DIOXIDE LEVEL 25 MEQ/L (21-32); CHLORIDE LEVEL 110 MEQ/L (98-107); CREATININE FOR GFR 1.17 MG/DL (0.70-1.30); GLOMERULAR FILTRATION RATE > 60.0 (>56); GLUCOSE, FASTING 222 MG/DL (70-100); POTASSIUM SERUM 4.9 MEQ/L (3.5-5.1); SODIUM LEVEL 140 MEQ/L (136-145); TOTAL PROTEIN 7.3 GM/DL (6.4-8.2)
[2021-08-10] MEDS ORDERED: AZITHROMYCIN 250MG TABLET PO SCH (09:00)
[2021-08-10] MEDS: SENOKOT S TAB PO SCH (09:00)
[2021-08-10] MEDS: PANTOPRAZOLE 40MG VIAL IV SCH (09:01)
[2021-08-10] MEDS: DIMETHICONE 2% OINTMENT(VANICREAM) 70GM TUBE TOP SCH (09:01)
[2021-08-10] MEDS ORDERED: AZIT-12 PO (10:01)
[2021-08-10] MEDS ORDERED: PRED10TA2 PO (10:01)
[2021-08-10] MEDS ORDERED: VENTAER INH (10:39)
== END 2021-08-10 11:14 | disposition home or self-care (01) ==
LOC: EDBD 10:14 → M ED 10:14 → M ED INP 11:53 → ENRESERV 12:52 → M PCU 13:44
PROVIDERS: ADMIT Surgery; ATTEND Surgery
DX: R07.9 Chest pain, unspecified (principal); R10.9 Unspecified abdominal pain; M25.552 Pain in left hip; S30.811A Abrasion of abdominal wall, initial encounter; S80.812A Abrasion, left lower leg, initial encounter; V28.0XXA Motorcycle driver injured in noncollision transport accident in nontraffic accident, initial encounter; Y92.410 Unspecified street and highway as the place of occurrence of the external cause; R06.89 Other abnormalities of breathing; J44.1 Chronic obstructive pulmonary disease with (acute) exacerbation; G47.33 Obstructive sleep apnea (adult) (pediatric); E55.9 Vitamin D deficiency, unspecified; E78.5 Hyperlipidemia, unspecified; M10.9 Gout, unspecified; I50.9 Heart failure, unspecified; K21.9 Gastro-esophageal reflux disease without esophagitis; M19.90 Unspecified osteoarthritis, unspecified site; M54.9 Dorsalgia, unspecified; G89.29 Other chronic pain; R91.1 Solitary pulmonary nodule; Z96.641 Presence of right artificial hip joint; Z88.8 Allergy status to other drugs, medicaments and biological substances; Z79.899 Other long term (current) drug therapy; F17.210 Nicotine dependence, cigarettes, uncomplicated
CPT/HCPCS: 36415; 70450; 71045; 71260; 72125; 73080; 73552; 73590; 74177; 80047; 80053; 80076; 82077; 82150; 82550; 82553; 82803; 83605; 83690; 84145; 85025; 85610; 85730; 86850; 86900; 86901; 86920; 87631; 93005; 93041; 93306; 94640; 94760; 96361; 96374; 96375; 96376; 97116; 97161; 99285; C9113; J1885; J2405; J2920; J3010; Q9967

== ENCOUNTER → 2021-10-10 | Outpatient (REF) | payer OTHER ==
[~2021-10-10] MED LIST changes: +AZIT-12 PO; -AZITHROMYCIN 250MG TABLET PO SCH
== END ==
LOC: M LAB REF 15:59
PROVIDERS: ATTEND Physician Assistant Medical
DX: R52 Pain, unspecified (principal)

== ENCOUNTER 2021-10-22 18:11 | Inpatient (IN) | payer OTHER ==
[~2021-10-22] VITALS: Ht 175.3 cm; Wt 104.5 kg
[2021-10-22] MEDS ORDERED: FURO40TA2 PO ×2 (18:30→23:41)
[2021-10-22 19:03] LABS: BASO # 0.1 10^3/uL (0.0-0.2); EOS # 0.4 10^3/uL (0.0-0.5); EOS % 4.7 % (0.0-3.0); HEMATOCRIT 40.2 % (42.0-52.0); HEMOGLOBIN 13.5 g/dl (13.5-17.5); LYMPH # 2.1 10^3/uL (1.5-5.0); LYMPH % 26.3 % (24.0-44.0); MEAN CORPUSCULAR HEMOGLOBIN 29.7 pg (27.0-33.0); MEAN CORPUSCULAR HGB CONC 33.6 g/dl (32.0-36.5); MEAN CORPUSCULAR VOLUME 88.4 fl (80.0-96.0); MONO # 0.9 10^3/uL (0.0-0.8); MONO % 10.8 % (2.0-8.0); NEUTROPHILS # 4.5 10^3/uL (1.5-8.5); NEUTROPHILS % 56.8 % (36.0-66.0); PLATELET COUNT, AUTOMATED 155 10^3/uL (150-450); RED BLOOD COUNT 4.55 10^6/uL (4.30-6.10); WHITE BLOOD COUNT 7.8 10^3/uL (4.0-10.0)
[2021-10-22 19:40] LABS: CK-MB VALUE MASS 2.1 NG/ML (<3.6); MB/CK RELATIVE INDEX 0.77 (< OR =4)
[2021-10-22 19:53] LABS: ALBUMIN 3.2 GM/DL (3.2-5.2); ALT/SGPT 54 U/L (12-78); BILIRUBIN,DIRECT < 0.1 MG/DL (0.0-0.2); BILIRUBIN,TOTAL 0.2 MG/DL (0.2-1.0); BLOOD UREA NITROGEN 13 MG/DL (7-18); CALCIUM LEVEL 8.4 MG/DL (8.5-10.1); CARBON DIOXIDE LEVEL 27 MEQ/L (21-32); CHLORIDE LEVEL 108 MEQ/L (98-107); CREATININE FOR GFR 1.03 MG/DL (0.70-1.30); GLOMERULAR FILTRATION RATE > 60.0 (>56); GLUCOSE, FASTING 124 MG/DL (70-100); NT-PRO BNP 89 PG/ML (<125); POTASSIUM SERUM 3.9 MEQ/L (3.5-5.1); SODIUM LEVEL 140 MEQ/L (136-145); THYROXINE (T4) 8.4 UG/DL (4.5-12.0); TOTAL PROTEIN 6.7 GM/DL (6.4-8.2)
[2021-10-22] MEDS ORDERED: IPRATROPIUM 0.5MG/ALBUTEROL 2.5MG INH SOL UD 3ML (DUONEB) NEB ONE (20:10)
[2021-10-22] MEDS ORDERED: methylPREDNISolone 125MG 2ML VIAL IV ONE (20:15)
[2021-10-22] MEDS ORDERED: ISOVUE-370 76% 100ML VIAL As Ordered ONE (20:26)
[2021-10-22] MEDS ORDERED: FUROSEMIDE 100MG/10ML VIAL (J1940) IV ONE (22:00)
[2021-10-22] MEDS ORDERED: ALBU8.5H INH (23:41)
[2021-10-22] MEDS ORDERED: STIO1AER INH (23:41)
[2021-10-22] MEDS ORDERED: HOME MED LIST COMPLETE! XX SCH (23:45)
[2021-10-23] VITALS (7 sets, daily range): BP systolic 117–157; BP diastolic 56–83; O2SAT 90–92
[2021-10-23] MEDS ORDERED: ALBUTEROL 90 MCG/ACT 8GM HFA INHALER INH PRN (00:25)
[2021-10-23] MEDS: IPRATROPIUM 0.5MG/ALBUTEROL 2.5MG INH SOL UD 3ML (DUONEB) NEB SCH ×4 (02:00→19:32)
[2021-10-23] MEDS: TIOTROPIUM INHALER/CAPSULE (SPIRIVA) INH SCH (07:18)
[2021-10-23] MEDS: FUROSEMIDE 40MG/4ML VIAL (J1940) IV SCH ×2 (08:21→20:21)
[2021-10-23] MEDS: ENOXAPARIN 40MG/0.4ML SYRINGE (J1650 PER 10MG) SC SCH (08:21)
[2021-10-23] MEDS: PANTOPRAZOLE 40MG VIAL IV SCH (08:21)
[2021-10-23] MEDS: predniSONE 20 MG TAB PO SCH (08:22)
[2021-10-23] MEDS: AZITHROMYCIN 250MG TABLET PO SCH (08:22)
[2021-10-24 00:34] VITALS: O2SAT 93
[2021-10-24] MEDS: IPRATROPIUM 0.5MG/ALBUTEROL 2.5MG INH SOL UD 3ML (DUONEB) NEB SCH ×2 (01:16→07:18)
[2021-10-24 05:44] VITALS: BP 109/64
[2021-10-24 06:37] LABS: BASO # 0.1 10^3/uL (0.0-0.2); BASO % 0.4 % (0.0-1.0); EOS # 0.1 10^3/uL (0.0-0.5); EOS % 0.3 % (0.0-3.0); HEMATOCRIT 45.3 % (42.0-52.0); HEMOGLOBIN 14.6 g/dl (13.5-17.5); LYMPH # 2.4 10^3/uL (1.5-5.0); LYMPH % 15.8 % (24.0-44.0); MEAN CORPUSCULAR HEMOGLOBIN 28.7 pg (27.0-33.0); MEAN CORPUSCULAR HGB CONC 32.2 g/dl (32.0-36.5); MEAN CORPUSCULAR VOLUME 89.2 fl (80.0-96.0); MONO % 6.6 % (2.0-8.0); NEUTROPHILS # 11.5 10^3/uL (1.5-8.5); NEUTROPHILS % 76.4 % (36.0-66.0); PLATELET COUNT, AUTOMATED 158 10^3/uL (150-450); RED BLOOD COUNT 5.08 10^6/uL (4.30-6.10)
[2021-10-24 07:06] LABS: BLOOD UREA NITROGEN 24 MG/DL (7-18); CALCIUM LEVEL 9.4 MG/DL (8.5-10.1); CARBON DIOXIDE LEVEL 26 MEQ/L (21-32); CHLORIDE LEVEL 110 MEQ/L (98-107); CREATININE FOR GFR 1.11 MG/DL (0.70-1.30); GLOMERULAR FILTRATION RATE > 60.0 (>56); GLUCOSE, FASTING 139 MG/DL (70-100); MAGNESIUM LEVEL 2.6 MG/DL (1.8-2.4); POTASSIUM SERUM 3.4 MEQ/L (3.5-5.1); SODIUM LEVEL 142 MEQ/L (136-145)
[2021-10-24] MEDS: TIOTROPIUM INHALER/CAPSULE (SPIRIVA) INH SCH (07:18)
[2021-10-24] MEDS ORDERED: POTASSIUM CHLORIDE 10MEQ SR TABLET PO ONE (08:15)
[2021-10-24] MEDS: FUROSEMIDE 40MG/4ML VIAL (J1940) IV SCH (10:02)
[2021-10-24] MEDS: AZITHROMYCIN 250MG TABLET PO SCH (10:02)
[2021-10-24] MEDS: PANTOPRAZOLE 40MG VIAL IV SCH (10:02)
[2021-10-24] MEDS: ENOXAPARIN 40MG/0.4ML SYRINGE (J1650 PER 10MG) SC SCH (10:03)
[2021-10-24] MEDS: predniSONE 20 MG TAB PO SCH (10:03)
[2021-10-24] MEDS ORDERED: POTA-150 PO (12:01)
[2021-10-24] MEDS ORDERED: TORS20TA2 PO (12:01)
== END 2021-10-24 13:40 | disposition home or self-care (01) | DRG 194 ==
LOC: M ED 18:11 → EDBD 18:11 → M ED INP 23:06 → ENRESERV 10-23 00:05 → M MSPAV 10-23 01:23
PROVIDERS: ADMIT Family Medicine; ATTEND Internal Medicine Nephrology
DX: I50.33 Acute on chronic diastolic (congestive) heart failure (principal); J44.1 Chronic obstructive pulmonary disease with (acute) exacerbation; G47.33 Obstructive sleep apnea (adult) (pediatric); K21.9 Gastro-esophageal reflux disease without esophagitis; E78.5 Hyperlipidemia, unspecified; M10.9 Gout, unspecified; Z87.19 Personal history of other diseases of the digestive system; M19.90 Unspecified osteoarthritis, unspecified site; R91.8 Other nonspecific abnormal finding of lung field; E55.9 Vitamin D deficiency, unspecified; E66.9 Obesity, unspecified; F17.210 Nicotine dependence, cigarettes, uncomplicated; M54.9 Dorsalgia, unspecified; G89.29 Other chronic pain; Z96.651 Presence of right artificial knee joint; Z96.641 Presence of right artificial hip joint; Z68.34 Body mass index [BMI] 34.0-34.9, adult

== ENCOUNTER → 2021-12-17 | Outpatient (REF) | payer OTHER ==
[~2021-12-17] MED LIST changes: +ALBU8.5H INH; -DULE200A INH; +MOME13HF7 INH; +POTA-150 PO; +STIO1AER INH; +TORS20TA2 PO
[2021-12-17 17:23] LABS: RSV AMPLIFICATION NEGATIVE (NEGATIVE)
== END ==
LOC: M LAB REF 16:08
PROVIDERS: ATTEND Physician Assistant
DX: R50.9 Fever, unspecified (principal)

== ENCOUNTER → 2022-04-20 | Outpatient (REF) | payer OTHER | LOC: M SFHCADAM 17:53 | PROVIDERS: ATTEND Family Medicine | DX: R05.1 Acute cough (principal) ==

== ENCOUNTER → 2022-04-24 | Outpatient (REF) | payer OTHER | LOC: M SFHCADAM 13:54 | PROVIDERS: ATTEND Family Medicine | DX: R52 Pain, unspecified (principal) ==

== ENCOUNTER 2022-04-29 19:27 | Emergency (ER) | payer OTHER ==
[~2022-04-29] VITALS: Ht 175.3 cm; Wt 144.0 kg
[2022-04-29 19:28] VITALS: BP 134/86
== END 2022-04-29 22:39 | disposition left against medical advice (07) ==
LOC: M ED 19:27
DX: Z53.21 Procedure and treatment not carried out due to patient leaving prior to being seen by health care provider (principal)

== ENCOUNTER → 2022-04-30 | Outpatient (CLI) | payer OTHER ==
[2022-04-30 13:07] LABS: BASO # 0.1 10^3/uL (0.0-0.2); BASO % 1.1 % (0.0-1.0); EOS # 0.3 10^3/uL (0.0-0.5); EOS % 3.9 % (0.0-3.0); HEMATOCRIT 46.2 % (42.0-52.0); HEMOGLOBIN 15.1 g/dl (13.5-17.5); LYMPH # 2.2 10^3/uL (1.5-5.0); LYMPH % 24.7 % (24.0-44.0); MEAN CORPUSCULAR HEMOGLOBIN 28.6 pg (27.0-33.0); MEAN CORPUSCULAR HGB CONC 32.7 g/dl (32.0-36.5); MEAN CORPUSCULAR VOLUME 87.5 fl (80.0-96.0); MONO # 0.9 10^3/uL (0.0-0.8); MONO % 9.7 % (2.0-8.0); NEUTROPHILS # 5.3 10^3/uL (1.5-8.5); NEUTROPHILS % 59.9 % (36.0-66.0); PLATELET COUNT, AUTOMATED 159 10^3/uL (150-450); RED BLOOD COUNT 5.28 10^6/uL (4.30-6.10); WHITE BLOOD COUNT 8.8 10^3/uL (4.0-10.0)
[2022-04-30 13:37] LABS: ALBUMIN 3.3 G/DL (3.2-5.2); ALKALINE PHOSPHATASE 76 U/L (46-116); ALT/SGPT 27 U/L (7.0-40); AST/SGOT 21 U/L (<34); BILIRUBIN,TOTAL 0.2 MG/DL (0.3-1.2); BLOOD UREA NITROGEN 13 MG/DL (9-23); CALCIUM LEVEL 8.8 MG/DL (8.5-10.1); CARBON DIOXIDE LEVEL 27 MMOL/L (20-31); CHLORIDE LEVEL 107 MMOL/L (98-107); CPK CREATINE PHOSPHOKINASE 66 U/L (46-171); CREATININE FOR GFR 0.75 MG/DL (0.70-1.30); GLOMERULAR FILTRATION RATE > 60.0 (>56); GLUCOSE, FASTING 91 MG/DL (60-100); MAGNESIUM LEVEL 1.9 MG/DL (1.8-2.4); POTASSIUM SERUM 4.6 MMOL/L (3.5-5.1); SODIUM LEVEL 139 MMOL/L (136-145); TOTAL PROTEIN 6.7 G/DL (5.7-8.2)
[2022-04-30 13:39] LABS: FREE T4 0.91 NG/DL (0.89-1.76); THYROID STIMULATING HORMONE 1.414 uIU/ML (0.55-4.78)
== END ==
LOC: M LAB 12:23
PROVIDERS: ATTEND Family Medicine
DX: R19.7 Diarrhea, unspecified (principal); R06.02 Shortness of breath

== ENCOUNTER → 2022-05-01 | Outpatient (REF) | payer OTHER | LOC: M SFHCADAM 12:17 | PROVIDERS: ATTEND Physician Assistant | DX: R19.7 Diarrhea, unspecified (principal); M79.10 Myalgia, unspecified site; R06.2 Wheezing; R60.0 Localized edema; I25.10 Atherosclerotic heart disease of native coronary artery without angina pectoris ==

== ENCOUNTER 2022-06-09 10:11 | Emergency (ER) | payer OTHER ==
[~2022-06-09] VITALS: Ht 172.7 cm; Wt 159.1 kg
[2022-06-09] MEDS ORDERED: NALOXONE INJ 0.4MG/1ML VIAL IV STA (10:55)
[2022-06-09 11:42] LABS: ABG BASE EXCESS 3.1 (-2.0-2.0); ABG HCO3 29.6 MEQ/L (22.0-26.0); ABG O2 SATURATION 95.7 % (95.0-99.0); ABG PARTIAL PRESSURE CO2 52.5 mmHg (35.0-45.0); ABG PARTIAL PRESSURE O2 78.9 mmHg (75.0-100.0); ABG STANDARD HCO3 27.2 MEQ/L (22.0-26.0); ABG TOTAL CO2 31.2 MEQ/L (22.0-29.0); ABG pH (ARTERIAL) 7.369 UNITS (7.350-7.450)
[2022-06-09 11:55] LABS: ETHYL ALCOHOL (ETHANOL) < 0.003 % (0.000-0.010)
[2022-06-09 11:57] LABS: ACETAMINOPHEN LEVEL 3.8 UG/ML (10.0-20.0); CPK CREATINE PHOSPHOKINASE 218 U/L (46-171); SALICYLATE LEVEL < 3.0 MG/DL (<30)
[2022-06-09 12:00] LABS: ALBUMIN 3.4 G/DL (3.2-5.2); ALKALINE PHOSPHATASE 83 U/L (46-116); ALT/SGPT 26 U/L (7.0-40); AST/SGOT 21 U/L (<34); BILIRUBIN,DIRECT 0.1 MG/DL (<0.4); BILIRUBIN,TOTAL 0.3 MG/DL (0.3-1.2); BLOOD UREA NITROGEN 16 MG/DL (9-23); CALCIUM LEVEL 8.7 MG/DL (8.5-10.1); CARBON DIOXIDE LEVEL 30 MMOL/L (20-31); CHLORIDE LEVEL 103 MMOL/L (98-107); CK-MB VALUE MASS 3.3 NG/ML (<3.6); CREATININE FOR GFR 0.88 MG/DL (0.70-1.30); GLOMERULAR FILTRATION RATE > 60.0 (>56); GLUCOSE, FASTING 145 MG/DL (60-100); MB/CK RELATIVE INDEX 1.51 (< OR =4); POTASSIUM SERUM 3.9 MMOL/L (3.5-5.1); SODIUM LEVEL 137 MMOL/L (136-145); TOTAL PROTEIN 6.6 G/DL (5.7-8.2)
[2022-06-09 12:04] LABS: BASO # 0.1 10^3/uL (0.0-0.2); BASO % 0.9 % (0.0-1.0); EOS # 0.4 10^3/uL (0.0-0.5); EOS % 4.3 % (0.0-3.0); HEMATOCRIT 44.1 % (42.0-52.0); HEMOGLOBIN 14.5 g/dl (13.5-17.5); LYMPH # 1.8 10^3/uL (1.5-5.0); LYMPH % 19.4 % (24.0-44.0); MEAN CORPUSCULAR HEMOGLOBIN 28.5 pg (27.0-33.0); MEAN CORPUSCULAR HGB CONC 32.9 g/dl (32.0-36.5); MEAN CORPUSCULAR VOLUME 86.8 fl (80.0-96.0); MONO # 0.8 10^3/uL (0.0-0.8); MONO % 8.3 % (2.0-8.0); NEUTROPHILS # 6.2 10^3/uL (1.5-8.5); NEUTROPHILS % 66.6 % (36.0-66.0); PLATELET COUNT, AUTOMATED 135 10^3/uL (150-450); RED BLOOD COUNT 5.08 10^6/uL (4.30-6.10); WHITE BLOOD COUNT 9.3 10^3/uL (4.0-10.0)
[2022-06-09 12:22] LABS: THYROID STIMULATING HORMONE 1.095 uIU/ML (0.55-4.78)
[2022-06-09 12:22] LABS: RSV AMPLIFICATION NEGATIVE (NEGATIVE)
[2022-06-09] MEDS ORDERED: DOXY-443 PO (13:13)
[2022-06-09 13:39] VITALS: BP 145/80
[2022-06-09 14:00] LABS: BARBITURATES URINE NEGATIVE (NEGATIVE); BENZODIAZEPINES URINE NEGATIVE (NEGATIVE); CANNABINOIDS URINE NEGATIVE (NEGATIVE); METHADONE URINE NEGATIVE (NEGATIVE); OPIATES URINE NEGATIVE (NEGATIVE); PHENCYCLIDINE URINE NEGATIVE (NEGATIVE)
[2022-06-09 14:27] LABS: AMPHETAMINES LEVEL URINE POSITIVE (NEGATIVE); COCAINE METABOLITE URINE POSITIVE (NEGATIVE)
== END 2022-06-09 13:44 | disposition home or self-care (01) ==
LOC: M ED 10:11
DX: T40.5X1A Poisoning by cocaine, accidental (unintentional), initial encounter (principal); S06.0X0A Concussion without loss of consciousness, initial encounter; S02.2XXA Fracture of nasal bones, initial encounter for closed fracture; W06.XXXA Fall from bed, initial encounter; Y92.003 Bedroom of unspecified non-institutional (private) residence as the place of occurrence of the external cause; I50.20 Unspecified systolic (congestive) heart failure; I10 Essential (primary) hypertension; E78.5 Hyperlipidemia, unspecified; J44.9 Chronic obstructive pulmonary disease, unspecified; G47.33 Obstructive sleep apnea (adult) (pediatric); R55 Syncope and collapse; F17.200 Nicotine dependence, unspecified, uncomplicated; Z79.51 Long term (current) use of inhaled steroids; Z79.899 Other long term (current) drug therapy
CPT/HCPCS: 36600; 70450; 70486; 71045; 72125; 80048; 80076; 80143; 80307; 81001; 82077; 82140; 82550; 82553; 82803; 83605; 83880; 84443; 85025; 87040; 87631; 93005; 93041; 94760; 96374; 99285; J2310

== ENCOUNTER 2022-09-01 13:28 | Inpatient (IN) | payer OTHER ==
[~2022-09-01] VITALS: Ht 175.3 cm; Wt 138.8 kg
[~2022-09-01 13:28] MED LIST changes: +DOXY-443 PO
[2022-09-01] MEDS ORDERED: IPRATROPIUM 0.5MG/ALBUTEROL 2.5MG INH SOL UD 3ML (DUONEB) NEB ONE (14:10)
[2022-09-01 14:27] LABS: VENOUS BASE EXCESS -0.6 (-2.0-2.0); VENOUS HCO3 23.6 MMOL/L (23.0-27.0); VENOUS O2 SATURATION 98.3 % (60.0-80.0); VENOUS PARTIAL PRESSURE CO2 37.7 mmHg (38.0-50.0); VENOUS PARTIAL PRESSURE O2 126.3 mmHg (30.0-50.0); VENOUS PH 7.415 UNITS (7.330-7.430); VENOUS TOTAL CO2 24.8 MMOL/L (24.0-28.0)
[2022-09-01 15:22] LABS: INR 0.99; PROTHROMBIN TIME 13.3 SECONDS (12.5-14.5)
[2022-09-01 15:27] LABS: BASO # 0.1 10^3/uL (0.0-0.2); EOS # 0.2 10^3/uL (0.0-0.5); EOS % 3.1 % (0.0-3.0); HEMATOCRIT 42.9 % (42.0-52.0); HEMOGLOBIN 14.4 g/dl (13.5-17.5); LYMPH # 1.6 10^3/uL (1.5-5.0); LYMPH % 20.1 % (24.0-44.0); MEAN CORPUSCULAR HEMOGLOBIN 29.3 pg (27.0-33.0); MEAN CORPUSCULAR HGB CONC 33.6 g/dl (32.0-36.5); MEAN CORPUSCULAR VOLUME 87.2 fl (80.0-96.0); MONO # 0.6 10^3/uL (0.0-0.8); MONO % 8.1 % (2.0-8.0); NEUTROPHILS # 5.2 10^3/uL (1.5-8.5); NEUTROPHILS % 67.2 % (36.0-66.0); PLATELET COUNT, AUTOMATED 160 10^3/uL (150-450); RED BLOOD COUNT 4.92 10^6/uL (4.30-6.10); WHITE BLOOD COUNT 7.8 10^3/uL (4.0-10.0)
[2022-09-01 15:30] LABS: ALBUMIN 3.4 G/DL (3.2-5.2); ALKALINE PHOSPHATASE 86 U/L (46-116); ALT/SGPT 24 U/L (7.0-40); AST/SGOT 15 U/L (<34); BILIRUBIN,DIRECT 0.2 MG/DL (<0.4); BILIRUBIN,TOTAL 0.5 MG/DL (0.3-1.2); BLOOD UREA NITROGEN 13 MG/DL (9-23); CALCIUM LEVEL 9.4 MG/DL (8.5-10.1); CARBON DIOXIDE LEVEL 23 MMOL/L (20-31); CHLORIDE LEVEL 109 MMOL/L (98-107); CREATININE FOR GFR 0.91 MG/DL (0.70-1.30); GLOMERULAR FILTRATION RATE > 60.0 (>56); GLUCOSE, FASTING 158 MG/DL (60-100); POTASSIUM SERUM 3.7 MMOL/L (3.5-5.1); SODIUM LEVEL 139 MMOL/L (136-145); TOTAL PROTEIN 6.5 G/DL (5.7-8.2)
[2022-09-01 15:32] LABS: THYROID STIMULATING HORMONE 0.719 uIU/ML (0.55-4.78)
[2022-09-01] MEDS ORDERED: cefTRIAXone SOD 1 GM in D5W MINI-BAG PLUS 50 ML IV ONE (17:55)
[2022-09-01] MEDS ORDERED: DOXYCYCLINE HYCLATE 100MG TABLET PO ONE (17:55)
[2022-09-01] MEDS ORDERED: MOM 30ML SUSPENSION UDC PO PRN (18:35)
[2022-09-01] MEDS ORDERED: FUROSEMIDE 40MG/4ML VIAL IV ONE (18:35)
[2022-09-01] MEDS ORDERED: MED REC IN PROGRESS XX SCH (19:05)
[2022-09-01] MEDS: methylPREDNISolone 125MG 2ML VIAL IV SCH (19:07)
[2022-09-01] MEDS: IPRATROPIUM 0.5MG/ALBUTEROL 2.5MG INH SOL UD 3ML (DUONEB) NEB SCH (19:14)
[2022-09-01] MEDS ORDERED: AZITHROMYCIN INJ 500 MG, VIAL MATE ADAPTER 1 EACH in NS 250 ML IV SCH (20:00)
[2022-09-01 20:21] LABS: AMPHETAMINES LEVEL URINE NEGATIVE (NEGATIVE); BARBITURATES URINE NEGATIVE (NEGATIVE); BENZODIAZEPINES URINE NEGATIVE (NEGATIVE); CANNABINOIDS URINE NEGATIVE (NEGATIVE); METHADONE URINE NEGATIVE (NEGATIVE); OPIATES URINE NEGATIVE (NEGATIVE); PHENCYCLIDINE URINE NEGATIVE (NEGATIVE)
[2022-09-01 20:26] LABS: INR 1.04; PROTHROMBIN TIME 13.8 SECONDS (12.5-14.5)
[2022-09-01 20:32] LABS: COCAINE METABOLITE URINE POSITIVE (NEGATIVE)
[2022-09-01] MEDS: DOCUSATE SODIUM 100MG CAPSULE PO SCH (21:00)
[2022-09-01] MEDS ORDERED: FURO40TA2 PO (22:45)
[2022-09-01] MEDS ORDERED: ARNU1INH INH (22:45)
[2022-09-01] MEDS ORDERED: HOME MED LIST COMPLETE! XX SCH (22:45)
[2022-09-01] MEDS ORDERED: POTA10CA60 PO (22:45)
[2022-09-02] MEDS: IPRATROPIUM 0.5MG/ALBUTEROL 2.5MG INH SOL UD 3ML (DUONEB) NEB SCH ×4 (02:03→20:37)
[2022-09-02] MEDS: methylPREDNISolone 125MG 2ML VIAL IV SCH ×3 (04:54→19:12)
[2022-09-02 06:25] LABS: HEMOGLOBIN 15.6 g/dl (13.5-17.5); MEAN CORPUSCULAR HEMOGLOBIN 28.7 pg (27.0-33.0); MEAN CORPUSCULAR HGB CONC 33.2 g/dl (32.0-36.5); MEAN CORPUSCULAR VOLUME 86.4 fl (80.0-96.0); PLATELET COUNT, AUTOMATED 166 10^3/uL (150-450); RED BLOOD COUNT 5.44 10^6/uL (4.30-6.10); WHITE BLOOD COUNT 11.3 10^3/uL (4.0-10.0)
[2022-09-02 06:40] LABS: BLOOD UREA NITROGEN 13 MG/DL (9-23); CALCIUM LEVEL 9.1 MG/DL (8.5-10.1); CARBON DIOXIDE LEVEL 25 MMOL/L (20-31); CHLORIDE LEVEL 106 MMOL/L (98-107); CREATININE FOR GFR 0.78 MG/DL (0.70-1.30); GLOMERULAR FILTRATION RATE > 60.0 (>56); GLUCOSE, FASTING 156 MG/DL (60-100); POTASSIUM SERUM 4.2 MMOL/L (3.5-5.1); SODIUM LEVEL 140 MMOL/L (136-145)
[2022-09-02] MEDS: DOCUSATE SODIUM 100MG CAPSULE PO SCH ×2 (09:35→19:12)
[2022-09-02] MEDS: FUROSEMIDE 40MG/4ML VIAL IV SCH ×2 (09:35→17:36)
[2022-09-02 10:10] VITALS: BP 128/77; TEMP 97.7; O2SAT 93
[2022-09-02] MEDS ORDERED: IPRATROPIUM 0.5MG/ALBUTEROL 2.5MG INH SOL UD 3ML (DUONEB) NEB PRN (10:55)
[2022-09-02 11:01] VITALS: BP 114/96; O2SAT 93
[2022-09-02 11:16] LABS: VENOUS BASE EXCESS 0.9 (-2.0-2.0); VENOUS HCO3 25.4 MMOL/L (23.0-27.0); VENOUS O2 SATURATION 99.3 % (60.0-80.0); VENOUS PARTIAL PRESSURE CO2 40.2 mmHg (38.0-50.0); VENOUS PARTIAL PRESSURE O2 218.6 mmHg (30.0-50.0); VENOUS PH 7.418 UNITS (7.330-7.430); VENOUS STANDARD HCO3 25.3 MMOL/L; VENOUS TOTAL CO2 26.6 MMOL/L (24.0-28.0)
[2022-09-02 12:00] VITALS: BP 109/65; TEMP 97.6; O2SAT 98
[2022-09-02 16:10] VITALS: BP 118/58; TEMP 97.2; O2SAT 92
[2022-09-02] MEDS: RIVAROXABAN 10MG TAB (XARELTO) PO SCH (17:35)
[2022-09-02] MEDS ORDERED: cefTRIAXone SOD 1 GM in D5W MINI-BAG PLUS 50 ML IV SCH (18:00)
[2022-09-02] MEDS: AZITHROMYCIN 250MG TABLET PO SCH (19:11)
[2022-09-02] MEDS: ACETAMINOPHEN TAB 650MG DOSE (2X325MG) PO PRN (19:12)
[2022-09-02 19:16] VITALS: BP 165/77; TEMP 98.2; O2SAT 93
[2022-09-02 20:00] VITALS: TEMP 98.4
[2022-09-03] VITALS (7 sets, daily range): BP systolic 125–154; BP diastolic 63–79; TEMP 97.9–98.8; O2SAT 92–95
[2022-09-03] MEDS: IPRATROPIUM 0.5MG/ALBUTEROL 2.5MG INH SOL UD 3ML (DUONEB) NEB SCH ×4 (02:49→20:45)
[2022-09-03] MEDS: methylPREDNISolone 125MG 2ML VIAL IV SCH ×3 (04:42→21:34)
[2022-09-03 05:25] LABS: BASO % 0.1 % (0.0-1.0); HEMATOCRIT 46.4 % (42.0-52.0); HEMOGLOBIN 15.4 g/dl (13.5-17.5); LYMPH # 1.1 10^3/uL (1.5-5.0); LYMPH % 5.5 % (24.0-44.0); MEAN CORPUSCULAR HEMOGLOBIN 28.6 pg (27.0-33.0); MEAN CORPUSCULAR HGB CONC 33.2 g/dl (32.0-36.5); MEAN CORPUSCULAR VOLUME 86.2 fl (80.0-96.0); MONO # 0.7 10^3/uL (0.0-0.8); MONO % 3.5 % (2.0-8.0); NEUTROPHILS # 17.9 10^3/uL (1.5-8.5); NEUTROPHILS % 90.3 % (36.0-66.0); PLATELET COUNT, AUTOMATED 211 10^3/uL (150-450); RED BLOOD COUNT 5.38 10^6/uL (4.30-6.10); WHITE BLOOD COUNT 19.8 10^3/uL (4.0-10.0)
[2022-09-03 05:48] LABS: BLOOD UREA NITROGEN 17 MG/DL (9-23); CALCIUM LEVEL 10.2 MG/DL (8.5-10.1); CARBON DIOXIDE LEVEL 25 MMOL/L (20-31); CHLORIDE LEVEL 105 MMOL/L (98-107); CREATININE FOR GFR 0.78 MG/DL (0.70-1.30); GLOMERULAR FILTRATION RATE > 60.0 (>56); GLUCOSE, FASTING 203 MG/DL (60-100); POTASSIUM SERUM 4.1 MMOL/L (3.5-5.1); SODIUM LEVEL 137 MMOL/L (136-145)
[2022-09-03] MEDS: FUROSEMIDE 40MG/4ML VIAL IV SCH (08:01)
[2022-09-03] MEDS: DOCUSATE SODIUM 100MG CAPSULE PO SCH ×2 (08:01→21:00)
[2022-09-03] MEDS: TIOTROPIUM INHALER/CAPSULE (SPIRIVA) INH SCH (11:14)
[2022-09-03] MEDS: POTASSIUM CHLORIDE 10MEQ SR TABLET PO SCH (18:23)
[2022-09-03] MEDS: RIVAROXABAN 10MG TAB (XARELTO) PO SCH (18:23)
[2022-09-03] MEDS: FLUTICASONE HFA 110MCG 12GM INHALER (FLOVENT) INH SCH (20:44)
[2022-09-03] MEDS: AZITHROMYCIN 250MG TABLET PO SCH (21:34)
[2022-09-03] MEDS: ACETAMINOPHEN TAB 650MG DOSE (2X325MG) PO PRN (21:35)
[2022-09-04] MEDS: IPRATROPIUM 0.5MG/ALBUTEROL 2.5MG INH SOL UD 3ML (DUONEB) NEB SCH ×2 (02:11→07:56)
[2022-09-04] MEDS: methylPREDNISolone 125MG 2ML VIAL IV SCH (04:57)
[2022-09-04 05:47] VITALS: BP 123/72; TEMP 97.3; O2SAT 89
[2022-09-04 06:20] LABS: BASO % 0.1 % (0.0-1.0); HEMATOCRIT 45.2 % (42.0-52.0); HEMOGLOBIN 14.8 g/dl (13.5-17.5); LYMPH # 1.2 10^3/uL (1.5-5.0); LYMPH % 5.4 % (24.0-44.0); MEAN CORPUSCULAR HEMOGLOBIN 28.8 pg (27.0-33.0); MEAN CORPUSCULAR HGB CONC 32.7 g/dl (32.0-36.5); MEAN CORPUSCULAR VOLUME 87.9 fl (80.0-96.0); MONO # 0.8 10^3/uL (0.0-0.8); MONO % 3.4 % (2.0-8.0); NEUTROPHILS # 20.5 10^3/uL (1.5-8.5); NEUTROPHILS % 90.4 % (36.0-66.0); PLATELET COUNT, AUTOMATED 204 10^3/uL (150-450); RED BLOOD COUNT 5.14 10^6/uL (4.30-6.10); WHITE BLOOD COUNT 22.7 10^3/uL (4.0-10.0)
[2022-09-04 06:43] LABS: BLOOD UREA NITROGEN 25 MG/DL (9-23); CALCIUM LEVEL 10.2 MG/DL (8.5-10.1); CARBON DIOXIDE LEVEL 26 MMOL/L (20-31); CHLORIDE LEVEL 104 MMOL/L (98-107); CREATININE FOR GFR 0.75 MG/DL (0.70-1.30); GLOMERULAR FILTRATION RATE > 60.0 (>56); GLUCOSE, FASTING 230 MG/DL (60-100); POTASSIUM SERUM 4.3 MMOL/L (3.5-5.1); SODIUM LEVEL 140 MMOL/L (136-145)
[2022-09-04] MEDS: FLUTICASONE HFA 110MCG 12GM INHALER (FLOVENT) INH SCH (07:56)
[2022-09-04] MEDS: TIOTROPIUM INHALER/CAPSULE (SPIRIVA) INH SCH (07:56)
[2022-09-04] MEDS: DOCUSATE SODIUM 100MG CAPSULE PO SCH (09:00)
[2022-09-04] MEDS ORDERED: SPIRONOLACTONE 25 MG TAB PO SCH (09:00)
[2022-09-04] MEDS ORDERED: FUROSEMIDE 40 MG TAB PO SCH (09:00)
[2022-09-04] MEDS: POTASSIUM CHLORIDE 10MEQ SR TABLET PO SCH (09:18)
[2022-09-04] MEDS ORDERED: PRED10TA2 PO (10:11)
[2022-09-04] MEDS ORDERED: IPRA0.00 NEB (10:11)
[2022-09-04] MEDS ORDERED: PRED20TA PO (10:11)
[2022-09-04] MEDS ORDERED: METO25TA PO (10:11)
[2022-09-04] MEDS ORDERED: ALDA25TA2 PO (10:11)
[2022-09-04 17:09] LABS: BODY FLUID CULTURE Not indicated. (.); LEGIONELLA ANTIGEN URINE Negative (Negative); ORGANISM ID Not indicated. (.); SPECIMEN SOURCE Urine (.); URINE STREP PNEUMONIAE ANTIGEN Negative (Negative)
[2022-09-05] MEDS ORDERED: predniSONE 20 MG TAB PO SCH (09:00)
== END 2022-09-04 13:56 | disposition home health service (06) | DRG 140 ==
LOC: M ED 13:28 → M ED INP 18:31 → ENRESERV 09-02 08:02 → M ICU 09-02 09:59 → M MSPAV 09-03 14:22
PROVIDERS: ADMIT Student in an Organized Health Care Education/Training Program; ATTEND Student in an Organized Health Care Education/Training Program
PROC: B246ZZZ Ultrasonography of Right and Left Heart (ICD-10-PCS; principal; 2022-09-04)
DX: J44.1 Chronic obstructive pulmonary disease with (acute) exacerbation (principal); I27.20 Pulmonary hypertension, unspecified; I27.81 Cor pulmonale (chronic); E66.01 Morbid (severe) obesity due to excess calories; G47.33 Obstructive sleep apnea (adult) (pediatric); I25.10 Atherosclerotic heart disease of native coronary artery without angina pectoris; E78.5 Hyperlipidemia, unspecified; I25.5 Ischemic cardiomyopathy; J98.11 Atelectasis; M10.9 Gout, unspecified; Z96.641 Presence of right artificial hip joint; Z95.828 Presence of other vascular implants and grafts; Z79.899 Other long term (current) drug therapy; Z88.8 Allergy status to other drugs, medicaments and biological substances

== ENCOUNTER 2022-10-09 16:01 | Emergency (ER) | payer OTHER ==
[~2022-10-09] VITALS: Ht 175.3 cm; Wt 127.3 kg
[~2022-10-09 16:01] MED LIST changes: +ALDA25TA2 PO; +IPRA0.00 NEB; +METO25TA PO; +POTA10CA60 PO
[2022-10-09 16:04] VITALS: BP 132/87; TEMP 98; O2SAT 96
[2022-10-09 18:13] LABS: BASO # 0.1 10^3/uL (0.0-0.2); BASO % 0.7 % (0.0-1.0); EOS # 0.2 10^3/uL (0.0-0.5); EOS % 1.9 % (0.0-3.0); HEMATOCRIT 45.2 % (42.0-52.0); HEMOGLOBIN 15.2 g/dl (13.5-17.5); LYMPH # 2.2 10^3/uL (1.5-5.0); LYMPH % 18.3 % (24.0-44.0); MEAN CORPUSCULAR HEMOGLOBIN 29.1 pg (27.0-33.0); MEAN CORPUSCULAR HGB CONC 33.6 g/dl (32.0-36.5); MEAN CORPUSCULAR VOLUME 86.4 fl (80.0-96.0); MONO % 8.5 % (2.0-8.0); NEUTROPHILS # 8.5 10^3/uL (1.5-8.5); NEUTROPHILS % 69.7 % (36.0-66.0); PLATELET COUNT, AUTOMATED 169 10^3/uL (150-450); RED BLOOD COUNT 5.23 10^6/uL (4.30-6.10); WHITE BLOOD COUNT 12.3 10^3/uL (4.0-10.0)
[2022-10-09 18:44] LABS: ETHYL ALCOHOL (ETHANOL) 0.003 % (0.000-0.010)
[2022-10-09 18:46] LABS: ALBUMIN 3.5 G/DL (3.2-5.2); ALKALINE PHOSPHATASE 90 U/L (46-116); ALT/SGPT 32 U/L (7.0-40); AST/SGOT 20 U/L (<34); BILIRUBIN,DIRECT 0.1 MG/DL (<0.4); BILIRUBIN,TOTAL 0.3 MG/DL (0.3-1.2); BLOOD UREA NITROGEN 14 MG/DL (9-23); CALCIUM LEVEL 9.1 MG/DL (8.5-10.1); CARBON DIOXIDE LEVEL 26 MMOL/L (20-31); CHLORIDE LEVEL 106 MMOL/L (98-107); CREATININE FOR GFR 0.75 MG/DL (0.70-1.30); GLOMERULAR FILTRATION RATE > 60.0 (>56); GLUCOSE, FASTING 107 MG/DL (60-100); POTASSIUM SERUM 4.4 MMOL/L (3.5-5.1); SODIUM LEVEL 141 MMOL/L (136-145); TOTAL PROTEIN 6.8 G/DL (5.7-8.2)
[2022-10-09 18:47] LABS: THYROID STIMULATING HORMONE 1.762 uIU/ML (0.55-4.78)
== END 2022-10-09 19:10 | disposition left against medical advice (07) ==
LOC: M ED 18:00
DX: R41.0 Disorientation, unspecified (principal); I50.20 Unspecified systolic (congestive) heart failure; J45.909 Unspecified asthma, uncomplicated; J44.9 Chronic obstructive pulmonary disease, unspecified; E03.9 Hypothyroidism, unspecified; F19.10 Other psychoactive substance abuse, uncomplicated; Z88.8 Allergy status to other drugs, medicaments and biological substances; E55.9 Vitamin D deficiency, unspecified; Z79.899 Other long term (current) drug therapy; Z79.52 Long term (current) use of systemic steroids; Z79.51 Long term (current) use of inhaled steroids

== ENCOUNTER → 2022-11-17 | Outpatient (CLI) | payer OTHER | LOC: M WUC 11:30 | PROVIDERS: ATTEND Nurse Practitioner Family | DX: M79.645 Pain in left finger(s) (principal) ==

== ENCOUNTER 2022-12-17 09:59 | Observation (INO) | payer OTHER ==
[~2022-12-17] VITALS: Ht 175.3 cm; Wt 152.5 kg
[2022-12-17 05:10] VITALS: BP 127/68; TEMP 98.4; O2SAT 94
[2022-12-17] MEDS ORDERED: DOXY100T PO (10:06)
[2022-12-17 11:48] LABS: BASO # 0.1 10^3/uL (0.0-0.2); BASO % 0.7 % (0.0-1.0); EOS # 0.4 10^3/uL (0.0-0.5); EOS % 3.1 % (0.0-3.0); HEMATOCRIT 44.5 % (42.0-52.0); HEMOGLOBIN 15.2 g/dl (13.5-17.5); LYMPH # 2.1 10^3/uL (1.5-5.0); LYMPH % 18.3 % (24.0-44.0); MEAN CORPUSCULAR HGB CONC 34.2 g/dl (32.0-36.5); MEAN CORPUSCULAR VOLUME 87.8 fl (80.0-96.0); MONO # 0.9 10^3/uL (0.0-0.8); MONO % 8.2 % (2.0-8.0); NEUTROPHILS # 7.7 10^3/uL (1.5-8.5); NEUTROPHILS % 69.1 % (36.0-66.0); PLATELET COUNT, AUTOMATED 148 10^3/uL (150-450); RED BLOOD COUNT 5.07 10^6/uL (4.30-6.10); WHITE BLOOD COUNT 11.2 10^3/uL (4.0-10.0)
[2022-12-17 12:00] LABS: INR 0.99; PROTHROMBIN TIME 12.8 SECONDS (12.5-14.5)
[2022-12-17 12:20] LABS: LIPASE 67 U/L (12-53)
[2022-12-17 12:22] LABS: ALBUMIN 3.5 G/DL (3.2-5.2); ALKALINE PHOSPHATASE 84 U/L (46-116); ALT/SGPT 59 U/L (7.0-40); AST/SGOT 25 U/L (<34); BILIRUBIN,DIRECT 0.1 MG/DL (<0.4); BILIRUBIN,TOTAL 0.4 MG/DL (0.3-1.2); BLOOD UREA NITROGEN 16 MG/DL (9-23); CALCIUM LEVEL 9.2 MG/DL (8.5-10.1); CARBON DIOXIDE LEVEL 29 MMOL/L (20-31); CHLORIDE LEVEL 103 MMOL/L (98-107); CK-MB VALUE MASS < 1.0 NG/ML (<3.6); CREATININE FOR GFR 0.73 MG/DL (0.70-1.30); GLOMERULAR FILTRATION RATE > 60.0 (>56); GLUCOSE, FASTING 194 MG/DL (60-100); POTASSIUM SERUM 4.2 MMOL/L (3.5-5.1); SODIUM LEVEL 138 MMOL/L (136-145)
[2022-12-17] MEDS ORDERED: ALBUTEROL SULFATE 2.5MG/0.5ML INH NEB SOLN NEB ONE (12:25)
[2022-12-17] MEDS ORDERED: IPRATROPIUM 0.5MG/ALBUTEROL 2.5MG INH SOL UD 3ML (DUONEB) NEB ONE (12:25)
[2022-12-17] MEDS ORDERED: MORPHINE 4 MG/ML 1ML VIAL IV PRN (12:25)
[2022-12-17 12:26] LABS: CPK CREATINE PHOSPHOKINASE 57 U/L (46-171); MB/CK RELATIVE INDEX 1.75 (< OR =4)
[2022-12-17] MEDS ORDERED: methylPREDNISolone 125MG 2ML VIAL IV ONE (12:35)
[2022-12-17 12:56] LABS: D-DIMER QUANT < 0.27 ug/mL (<0.5)
[2022-12-17 13:20] LABS: CK-MB VALUE MASS < 1.0 NG/ML (<3.6)
[2022-12-17 13:25] LABS: CPK CREATINE PHOSPHOKINASE 55 U/L (46-171); MB/CK RELATIVE INDEX 1.81 (< OR =4)
[2022-12-17] MEDS ORDERED: MED REC IN PROGRESS XX SCH (14:35)
[2022-12-17] MEDS ORDERED: HOME MED LIST COMPLETE! XX SCH (14:55)
[2022-12-17] MEDS ORDERED: IPRATROPIUM 0.5MG/ALBUTEROL 2.5MG INH SOL UD 3ML (DUONEB) NEB PRN (15:40)
[2022-12-17] MEDS ORDERED: ACETAMINOPHEN TAB 650MG DOSE (2X325MG) PO PRN (15:40)
[2022-12-17] MEDS ORDERED: MAALOX 30 ML SUSP *UDC PO ONE (17:05)
[2022-12-17] MEDS: POTASSIUM CHLORIDE 10MEQ SR TABLET PO SCH (18:06)
[2022-12-17] MEDS: DOXYCYCLINE HYCLATE 100MG TABLET PO SCH (19:52)
[2022-12-17] MEDS: methylPREDNISolone 40MG 1ML VIAL IV SCH (19:52)
[2022-12-17] MEDS: IPRATROPIUM 0.5MG/ALBUTEROL 2.5MG INH SOL UD 3ML (DUONEB) NEB SCH (20:21)
[2022-12-17 21:00] VITALS: BP 117/58; TEMP 97.7; O2SAT 93
[2022-12-17] MEDS: MORPHINE 2 MG/ML 1ML VIAL IV PRN (21:33)
[2022-12-18] MEDS: IPRATROPIUM 0.5MG/ALBUTEROL 2.5MG INH SOL UD 3ML (DUONEB) NEB SCH ×4 (02:47→20:03)
[2022-12-18 06:00] VITALS: BP 106/72; TEMP 98.1; O2SAT 91
[2022-12-18 06:12] LABS: HEMATOCRIT 44.3 % (42.0-52.0); HEMOGLOBIN 14.9 g/dl (13.5-17.5); MEAN CORPUSCULAR HEMOGLOBIN 29.7 pg (27.0-33.0); MEAN CORPUSCULAR HGB CONC 33.6 g/dl (32.0-36.5); MEAN CORPUSCULAR VOLUME 88.2 fl (80.0-96.0); PLATELET COUNT, AUTOMATED 164 10^3/uL (150-450); RED BLOOD COUNT 5.02 10^6/uL (4.30-6.10); WHITE BLOOD COUNT 20.6 10^3/uL (4.0-10.0)
[2022-12-18 06:31] LABS: BLOOD UREA NITROGEN 21 MG/DL (9-23); CALCIUM LEVEL 9.4 MG/DL (8.5-10.1); CARBON DIOXIDE LEVEL 27 MMOL/L (20-31); CHLORIDE LEVEL 103 MMOL/L (98-107); CREATININE FOR GFR 0.74 MG/DL (0.70-1.30); GLOMERULAR FILTRATION RATE > 60.0 (>56); GLUCOSE, FASTING 277 MG/DL (60-100); MAGNESIUM LEVEL 2.3 MG/DL (1.8-2.4); POTASSIUM SERUM 4.6 MMOL/L (3.5-5.1); SODIUM LEVEL 139 MMOL/L (136-145)
[2022-12-18] MEDS: DOXYCYCLINE HYCLATE 100MG TABLET PO SCH ×2 (09:23→21:21)
[2022-12-18] MEDS: methylPREDNISolone 40MG 1ML VIAL IV SCH (09:23)
[2022-12-18] MEDS: POTASSIUM CHLORIDE 10MEQ SR TABLET PO SCH ×2 (09:23→17:56)
[2022-12-18] MEDS: FUROSEMIDE 40 MG TAB PO SCH (09:23)
[2022-12-18 14:00] VITALS: BP 141/71; TEMP 98.6; O2SAT 94
[2022-12-18 14:05] LABS: BASO % 0.1 % (0.0-1.0); HEMATOCRIT 42.8 % (42.0-52.0); HEMOGLOBIN 14.6 g/dl (13.5-17.5); LYMPH # 0.9 10^3/uL (1.5-5.0); LYMPH % 3.5 % (24.0-44.0); MEAN CORPUSCULAR HGB CONC 34.1 g/dl (32.0-36.5); MEAN CORPUSCULAR VOLUME 88.1 fl (80.0-96.0); MONO # 0.8 10^3/uL (0.0-0.8); MONO % 3.3 % (2.0-8.0); NEUTROPHILS # 23.6 10^3/uL (1.5-8.5); NEUTROPHILS % 92.5 % (36.0-66.0); PLATELET COUNT, AUTOMATED 164 10^3/uL (150-450); RED BLOOD COUNT 4.86 10^6/uL (4.30-6.10); WHITE BLOOD COUNT 25.5 10^3/uL (4.0-10.0)
[2022-12-18 19:46] VITALS: BP 152/85; TEMP 98.4; O2SAT 94
[2022-12-18] MEDS ORDERED: ENOXAPARIN 40MG/0.4ML SYRINGE (J1650 PER 10MG) SC SCH (21:00)
[2022-12-18] MEDS: MORPHINE 2 MG/ML 1ML VIAL IV PRN (21:21)
[2022-12-18 21:26] VITALS: O2SAT 91
[2022-12-19] MEDS: IPRATROPIUM 0.5MG/ALBUTEROL 2.5MG INH SOL UD 3ML (DUONEB) NEB SCH ×2 (02:47→07:39)
[2022-12-19 05:40] VITALS: BP 117/63; TEMP 98.6; O2SAT 95
[2022-12-19 06:05] VITALS: O2SAT 93
[2022-12-19 06:19] LABS: BASO # 0.1 10^3/uL (0.0-0.2); BASO % 0.3 % (0.0-1.0); EOS % 0.1 % (0.0-3.0); HEMATOCRIT 39.6 % (42.0-52.0); LYMPH # 2.4 10^3/uL (1.5-5.0); LYMPH % 12.1 % (24.0-44.0); MEAN CORPUSCULAR HEMOGLOBIN 29.8 pg (27.0-33.0); MEAN CORPUSCULAR HGB CONC 32.8 g/dl (32.0-36.5); MEAN CORPUSCULAR VOLUME 90.8 fl (80.0-96.0); MONO # 1.4 10^3/uL (0.0-0.8); MONO % 7.3 % (2.0-8.0); NEUTROPHILS # 15.7 10^3/uL (1.5-8.5); NEUTROPHILS % 79.5 % (36.0-66.0); PLATELET COUNT, AUTOMATED 146 10^3/uL (150-450); RED BLOOD COUNT 4.36 10^6/uL (4.30-6.10); WHITE BLOOD COUNT 19.7 10^3/uL (4.0-10.0)
[2022-12-19] MEDS: DOXYCYCLINE HYCLATE 100MG TABLET PO SCH (08:48)
[2022-12-19] MEDS: POTASSIUM CHLORIDE 10MEQ SR TABLET PO SCH (08:48)
[2022-12-19] MEDS: FUROSEMIDE 40 MG TAB PO SCH (08:48)
[2022-12-19] MEDS ORDERED: methylPREDNISolone 40MG 1ML VIAL IV SCH (09:00)
[2022-12-19] MEDS ORDERED: PRED50TA PO (09:47)
== END 2022-12-19 10:40 | disposition home or self-care (01) ==
LOC: M ED 09:59 → M ED INP 15:37 → ENRESERV 16:16 → M MSPAV 17:09
PROVIDERS: ADMIT Family Medicine; ATTEND Family Medicine
DX: J44.1 Chronic obstructive pulmonary disease with (acute) exacerbation (principal); I11.0 Hypertensive heart disease with heart failure; I50.20 Unspecified systolic (congestive) heart failure; G47.33 Obstructive sleep apnea (adult) (pediatric); I27.20 Pulmonary hypertension, unspecified; D72.829 Elevated white blood cell count, unspecified; R06.02 Shortness of breath; R91.8 Other nonspecific abnormal finding of lung field; Z88.8 Allergy status to other drugs, medicaments and biological substances; Z79.899 Other long term (current) drug therapy
CPT/HCPCS: 36415; 71045; 71250; 80048; 80076; 82550; 82553; 83690; 83735; 83880; 85025; 85027; 85379; 85610; 87040; 87486; 87581; 87633; 87798; 93005; 93041; 94640; 94760; 96372; 96374; 96375; 96376; 99285; J1650; J2920; J2930

== ENCOUNTER → 2022-12-22 | Outpatient (REF) | payer OTHER ==
[~2022-12-22] MED LIST changes: +DOXY100T PO; +PRED50TA PO
[2022-12-22 17:57] LABS: CREATININE, URINE 19.5 MG/DL; MALB URINE SIEMENS < 3.0 MG/L; MAU/CREAT RATIO 15.3 MCG/MG (0.0-30.0)
== END ==
LOC: M LAB REF 16:08
PROVIDERS: ATTEND Nurse Practitioner Family
DX: E11.8 Type 2 diabetes mellitus with unspecified complications (principal)

== ENCOUNTER → 2022-12-29 | Outpatient (REF) | payer OTHER ==
[2022-12-29 16:55] LABS: BASO # 0.1 10^3/uL (0.0-0.2); BASO % 0.5 % (0.0-1.0); EOS # 0.3 10^3/uL (0.0-0.5); EOS % 2.4 % (0.0-3.0); HEMATOCRIT 44.1 % (42.0-52.0); HEMOGLOBIN 14.7 g/dl (13.5-17.5); LYMPH # 1.8 10^3/uL (1.5-5.0); LYMPH % 16.6 % (24.0-44.0); MEAN CORPUSCULAR HEMOGLOBIN 29.8 pg (27.0-33.0); MEAN CORPUSCULAR HGB CONC 33.3 g/dl (32.0-36.5); MEAN CORPUSCULAR VOLUME 89.3 fl (80.0-96.0); MONO % 9.1 % (2.0-8.0); NEUTROPHILS # 7.8 10^3/uL (1.5-8.5); NEUTROPHILS % 70.5 % (36.0-66.0); PLATELET COUNT, AUTOMATED 124 10^3/uL (150-450); RED BLOOD COUNT 4.94 10^6/uL (4.30-6.10)
[2022-12-29 17:07] LABS: HEMOGLOBIN A1c 7.3 % (4.0-6.0)
[2022-12-29 17:25] LABS: CHOLESTEROL LEVEL 209 MG/DL (<200); CHOLESTEROL RISK RATIO 4.45 (<5); HDL CHOLESTEROL 46.9 MG/DL (>40); LDL CHOLESTEROL 117.1 MG/DL (<100); NON-HDL-C 162.1 MG/DL; TRIGLYCERIDES LEVEL 225 MG/DL (<150)
== END ==
LOC: M LAB REF 16:27
PROVIDERS: ATTEND Nurse Practitioner Family
DX: E66.01 Morbid (severe) obesity due to excess calories (principal); Z68.42 Body mass index [BMI] 45.0-49.9, adult; J44.9 Chronic obstructive pulmonary disease, unspecified; Z12.5 Encounter for screening for malignant neoplasm of prostate; Z11.9 Encounter for screening for infectious and parasitic diseases, unspecified

== ENCOUNTER → 2023-01-05 | Outpatient (REF) | LOC: M PLAIMG 10:40 | PROVIDERS: ATTEND Internal Medicine | DX: R52 Pain, unspecified (principal) ==

== ENCOUNTER 2023-01-28 23:06 | Emergency (ER) | payer OTHER ==
[~2023-01-28] VITALS: Ht 175.3 cm; Wt 159.1 kg
[2023-01-28] MEDS ORDERED: METF500T13 PO (23:58)
[2023-01-29 00:05] LABS: VENOUS BASE EXCESS -2.1 (-2.0-2.0); VENOUS HCO3 23.1 MMOL/L (23.0-27.0); VENOUS O2 SATURATION 94.9 % (60.0-80.0); VENOUS PARTIAL PRESSURE CO2 41.2 mmHg (38.0-50.0); VENOUS PARTIAL PRESSURE O2 73.5 mmHg (30.0-50.0); VENOUS PH 7.367 UNITS (7.330-7.430); VENOUS STANDARD HCO3 22.7 MMOL/L; VENOUS TOTAL CO2 24.4 MMOL/L (24.0-28.0)
[2023-01-29 00:38] LABS: BASO # 0.1 10^3/uL (0.0-0.2); BASO % 0.6 % (0.0-1.0); EOS # 0.3 10^3/uL (0.0-0.5); EOS % 2.9 % (0.0-3.0); HEMATOCRIT 39.3 % (42.0-52.0); HEMOGLOBIN 13.4 g/dl (13.5-17.5); LYMPH # 2.3 10^3/uL (1.5-5.0); LYMPH % 21.2 % (24.0-44.0); MEAN CORPUSCULAR HEMOGLOBIN 30.2 pg (27.0-33.0); MEAN CORPUSCULAR HGB CONC 34.1 g/dl (32.0-36.5); MEAN CORPUSCULAR VOLUME 88.7 fl (80.0-96.0); MONO # 1.1 10^3/uL (0.0-0.8); MONO % 10.4 % (2.0-8.0); NEUTROPHILS # 6.9 10^3/uL (1.5-8.5); NEUTROPHILS % 64.1 % (36.0-66.0); PLATELET COUNT, AUTOMATED 137 10^3/uL (150-450); RED BLOOD COUNT 4.43 10^6/uL (4.30-6.10); WHITE BLOOD COUNT 10.7 10^3/uL (4.0-10.0)
[2023-01-29 00:40] LABS: BLOOD UREA NITROGEN 18 MG/DL (9-23); CALCIUM LEVEL 8.9 MG/DL (8.5-10.1); CARBON DIOXIDE LEVEL 26 MMOL/L (20-31); CHLORIDE LEVEL 103 MMOL/L (98-107); CK-MB VALUE MASS < 1.0 NG/ML (<3.6); CPK CREATINE PHOSPHOKINASE 72 U/L (46-171); CREATININE FOR GFR 0.87 MG/DL (0.70-1.30); GLOMERULAR FILTRATION RATE > 60.0 (>56); GLUCOSE, FASTING 172 MG/DL (60-100); MB/CK RELATIVE INDEX 1.38 (< OR =4); POTASSIUM SERUM 3.9 MMOL/L (3.5-5.1); SODIUM LEVEL 139 MMOL/L (136-145)
[2023-01-29] MEDS ORDERED: IPRATROPIUM 0.5MG/ALBUTEROL 2.5MG INH SOL UD 3ML (DUONEB) NEB ONE (01:25)
[2023-01-29] MEDS ORDERED: ASPIRIN 81MG CHEW TABLET PO ONE (01:25)
[2023-01-29 02:19] LABS: CK-MB VALUE MASS < 1.0 NG/ML (<3.6); CPK CREATINE PHOSPHOKINASE 72 U/L (46-171); MB/CK RELATIVE INDEX 1.38 (< OR =4)
[2023-01-29] MEDS ORDERED: ISOVUE-370 76% 100ML VIAL As Ordered ONE (02:29)
[2023-01-29 03:00] VITALS: TEMP 98
[2023-01-29 04:00] VITALS: BP 124/88; O2SAT 94
[2023-01-29] MEDS ORDERED: methylPREDNISolone 125MG 2ML VIAL IV ONE (04:35)
[2023-01-29] MEDS ORDERED: PRED20TA PO (04:36)
== END 2023-01-29 04:49 | disposition home or self-care (01) ==
LOC: M ED 23:06
DX: J44.1 Chronic obstructive pulmonary disease with (acute) exacerbation (principal); Z98.61 Coronary angioplasty status; Z87.891 Personal history of nicotine dependence; R91.8 Other nonspecific abnormal finding of lung field; I25.10 Atherosclerotic heart disease of native coronary artery without angina pectoris; K76.0 Fatty (change of) liver, not elsewhere classified; Z79.899 Other long term (current) drug therapy; Z88.8 Allergy status to other drugs, medicaments and biological substances
CPT/HCPCS: 71045; 71275; 80048; 82550; 82553; 82803; 83880; 85025; 87040; 87486; 87581; 87633; 87798; 93005; 93041; 94640; 94760; 96374; 99285; J2930; Q9967

== ENCOUNTER 2023-02-14 18:59 | Inpatient (IN) | payer OTHER ==
[~2023-02-14] VITALS: Ht 175.3 cm; Wt 154.3 kg
[~2023-02-14 18:59] MED LIST changes: +METF500T13 PO
[2023-02-14] MEDS ORDERED: NS 1,000 ML IV ONE (19:30)
[2023-02-14 20:01] LABS: VENOUS BASE EXCESS -0.9 (-2.0-2.0); VENOUS HCO3 23.7 MMOL/L (23.0-27.0); VENOUS O2 SATURATION 90.1 % (60.0-80.0); VENOUS PARTIAL PRESSURE CO2 39.2 mmHg (38.0-50.0); VENOUS PARTIAL PRESSURE O2 57.2 mmHg (30.0-50.0); VENOUS PH 7.399 UNITS (7.330-7.430); VENOUS STANDARD HCO3 23.5 MMOL/L; VENOUS TOTAL CO2 24.9 MMOL/L (24.0-28.0)
[2023-02-14 20:09] LABS: BASO % 0.5 % (0.0-1.0); EOS # 0.3 10^3/uL (0.0-0.5); EOS % 3.8 % (0.0-3.0); HEMATOCRIT 41.5 % (42.0-52.0); LYMPH % 23.4 % (24.0-44.0); MEAN CORPUSCULAR HEMOGLOBIN 29.9 pg (27.0-33.0); MEAN CORPUSCULAR HGB CONC 33.7 g/dl (32.0-36.5); MEAN CORPUSCULAR VOLUME 88.7 fl (80.0-96.0); MONO # 0.9 10^3/uL (0.0-0.8); MONO % 10.4 % (2.0-8.0); NEUTROPHILS # 5.2 10^3/uL (1.5-8.5); NEUTROPHILS % 61.5 % (36.0-66.0); PLATELET COUNT, AUTOMATED 116 10^3/uL (150-450); RED BLOOD COUNT 4.68 10^6/uL (4.30-6.10); WHITE BLOOD COUNT 8.5 10^3/uL (4.0-10.0)
[2023-02-14 20:31] LABS: INR 1.02; PROTHROMBIN TIME 13.1 SECONDS (12.5-14.5)
[2023-02-14 20:32] LABS: PARTIAL THROMBOPLASTIN TIME 25.6 SECONDS (24.8-34.2)
[2023-02-14 20:36] LABS: CK-MB VALUE MASS < 1.0 NG/ML (<3.6)
[2023-02-14 20:38] LABS: BLOOD UREA NITROGEN 16 MG/DL (9-23); CALCIUM LEVEL 8.8 MG/DL (8.5-10.1); CARBON DIOXIDE LEVEL 26 MMOL/L (20-31); CHLORIDE LEVEL 104 MMOL/L (98-107); CPK CREATINE PHOSPHOKINASE 76 U/L (46-171); CREATININE FOR GFR 0.81 MG/DL (0.70-1.30); GLOMERULAR FILTRATION RATE > 60.0 (>56); GLUCOSE, FASTING 121 MG/DL (60-100); MB/CK RELATIVE INDEX 1.31 (< OR =4); POTASSIUM SERUM 3.9 MMOL/L (3.5-5.1); SODIUM LEVEL 141 MMOL/L (136-145)
[2023-02-14 20:40] LABS: THYROID STIMULATING HORMONE 0.754 uIU/ML (0.55-4.78)
[2023-02-14] MEDS ORDERED: ISOVUE-370 76% 100ML VIAL As Ordered ONE (20:40)
[2023-02-14 20:41] LABS: FREE T4 1.15 NG/DL (0.89-1.76); RSV AMPLIFICATION NEGATIVE (NEGATIVE)
[2023-02-14 22:15] LABS: AMPHETAMINES LEVEL URINE NEGATIVE (NEGATIVE); BARBITURATES URINE NEGATIVE (NEGATIVE); BENZODIAZEPINES URINE NEGATIVE (NEGATIVE); COCAINE METABOLITE URINE NEGATIVE (NEGATIVE); METHADONE URINE NEGATIVE (NEGATIVE)
[2023-02-14 22:16] LABS: CANNABINOIDS URINE NEGATIVE (NEGATIVE); OPIATES URINE NEGATIVE (NEGATIVE); PHENCYCLIDINE URINE NEGATIVE (NEGATIVE)
[2023-02-14] MEDS ORDERED: LIDOCAINE 5% (LIDODERM) PATCH TD ONE (22:25)
[2023-02-14] MEDS ORDERED: PERCOCET 5MG/325MG TAB PO ONE (22:25)
[2023-02-14] MEDS ORDERED: MORPHINE 2 MG/ML 1ML VIAL IV ONE (22:30)
[2023-02-14] MEDS ORDERED: TRUL10IN PO (22:47)
[2023-02-14] MEDS ORDERED: METF-838 PO (22:47)
[2023-02-14] MEDS ORDERED: BREO1INH PO (22:48)
[2023-02-14] MEDS ORDERED: HOME MED LIST COMPLETE! XX SCH (22:50)
[2023-02-15] VITALS (8 sets, daily range): BP systolic 128–142; BP diastolic 70–75; TEMP 97.2–98.4; O2SAT 89–95
[2023-02-15] MEDS ORDERED: ALBUTEROL 90 MCG/ACT 8GM HFA INHALER INH PRN (02:25)
[2023-02-15] MEDS ORDERED: MOM 30ML SUSPENSION UDC PO PRN (02:25)
[2023-02-15] MEDS ORDERED: MAALOX 30 ML SUSP *UDC PO PRN (02:25)
[2023-02-15 04:09] LABS: PROTHROMBIN TIME 12.9 SECONDS (12.5-14.5)
[2023-02-15 04:10] LABS: PARTIAL THROMBOPLASTIN TIME 26.4 SECONDS (24.8-34.2)
[2023-02-15 04:13] LABS: D-DIMER QUANT 0.27 ug/mL (<0.5)
[2023-02-15 04:17] LABS: C REACTIVE PROTEIN QUANTITATIV 1.8 MG/DL (<1.0)
[2023-02-15 04:18] LABS: ALBUMIN 3.2 G/DL (3.2-5.2); BILIRUBIN,DIRECT 0.2 MG/DL (<0.4); BILIRUBIN,TOTAL 0.4 MG/DL (0.3-1.2); TOTAL PROTEIN 6.2 G/DL (5.7-8.2)
[2023-02-15 04:33] LABS: PROCALCITONIN 0.06 ng/ml
[2023-02-15 05:49] LABS: CK-MB VALUE MASS < 1.0 NG/ML (<3.6)
[2023-02-15 05:50] LABS: CPK CREATINE PHOSPHOKINASE 61 U/L (46-171); MB/CK RELATIVE INDEX 1.63 (< OR =4)
[2023-02-15] MEDS: predniSONE 20 MG TAB PO SCH (07:57)
[2023-02-15] MEDS: PANTOPRAZOLE 40MG TAB (PROTONIX) PO SCH (07:57)
[2023-02-15] MEDS: ENOXAPARIN 40MG/0.4ML SYRINGE (J1650 PER 10MG) SC SCH ×2 (07:58→21:43)
[2023-02-15] MEDS: DOCUSATE SODIUM 100MG CAPSULE PO SCH ×2 (07:59→21:00)
[2023-02-15] MEDS ORDERED: IPRATROPIUM 0.5MG/ALBUTEROL 2.5MG INH SOL UD 3ML (DUONEB) NEB SCH (08:00)
[2023-02-15] MEDS ORDERED: COMBIVENT RESPIMAT 100-20MCG INHALER 4GM INH SCH ×2 (08:00→14:35)
[2023-02-15] MEDS: ACETAMINOPHEN TAB 650MG DOSE (2X325MG) PO PRN ×2 (10:33→17:40)
[2023-02-15] MEDS ORDERED: LIDOCAINE 5% (LIDODERM) PATCH TD ONE (10:35)
[2023-02-15] MEDS ORDERED: KETOROLAC 30 MG/ML 1ML VIAL IV ONE (10:35)
[2023-02-15] MEDS: FUROSEMIDE 40 MG TAB PO SCH (11:20)
[2023-02-15 11:22] LABS: BASO % 0.4 % (0.0-1.0); EOS # 0.2 10^3/uL (0.0-0.5); HEMATOCRIT 41.8 % (42.0-52.0); HEMOGLOBIN 13.8 g/dl (13.5-17.5); LYMPH # 0.8 10^3/uL (1.5-5.0); LYMPH % 9.9 % (24.0-44.0); MEAN CORPUSCULAR HEMOGLOBIN 29.8 pg (27.0-33.0); MEAN CORPUSCULAR VOLUME 90.3 fl (80.0-96.0); MONO # 0.2 10^3/uL (0.0-0.8); MONO % 3.2 % (2.0-8.0); NEUTROPHILS # 6.4 10^3/uL (1.5-8.5); NEUTROPHILS % 84.1 % (36.0-66.0); PLATELET COUNT, AUTOMATED 105 10^3/uL (150-450); RED BLOOD COUNT 4.63 10^6/uL (4.30-6.10); WHITE BLOOD COUNT 7.6 10^3/uL (4.0-10.0)
[2023-02-15 11:25] LABS: FERRITIN 153.5 NG/ML (10.5-307.3)
[2023-02-15 11:48] LABS: ALBUMIN 3.2 G/DL (3.2-5.2); ALKALINE PHOSPHATASE 69 U/L (46-116); ALT/SGPT 78 U/L (7.0-40); AST/SGOT 43 U/L (<34); BILIRUBIN,TOTAL 0.4 MG/DL (0.3-1.2); BLOOD UREA NITROGEN 15 MG/DL (9-23); CALCIUM LEVEL 8.7 MG/DL (8.5-10.1); CARBON DIOXIDE LEVEL 23 MMOL/L (20-31); CHLORIDE LEVEL 105 MMOL/L (98-107); CREATININE FOR GFR 0.73 MG/DL (0.70-1.30); GLOMERULAR FILTRATION RATE > 60.0 (>56); GLUCOSE, FASTING 253 MG/DL (60-100); POTASSIUM SERUM 4.1 MMOL/L (3.5-5.1); SODIUM LEVEL 138 MMOL/L (136-145); TOTAL PROTEIN 6.5 G/DL (5.7-8.2)
[2023-02-15] MEDS: ADVAIR HFA 115/21MCG INHALER INH SCH ×2 (11:56→20:29)
[2023-02-15] MEDS ORDERED: REMDESIVIR 200 MG in NS 250 ML IV ONE (13:00)
[2023-02-15] MEDS: COMBIVENT RESPIMAT 100-20MCG INHALER 4GM INH SCH ×2 (15:04→20:29)
[2023-02-15] MEDS ORDERED: GLUCAGON INJ 1MG VIAL SC PRN (16:00)
[2023-02-15] MEDS ORDERED: GLUCOSE 4GM CHEW TABLET PO PRN (16:00)
[2023-02-15] MEDS ORDERED: DEXTROSE 50% 50ML SYRINGE IV PRN (16:00)
[2023-02-15] MEDS: INSULIN LISPRO (NovoLOG) PER UNIT SC SCH ×2 (17:40→21:00)
[2023-02-15] MEDS: PERCOCET 5MG/325MG TAB PO PRN (21:48)
[2023-02-16] MEDS: COMBIVENT RESPIMAT 100-20MCG INHALER 4GM INH SCH ×4 (02:00→22:00)
[2023-02-16 05:36] LABS: HEMATOCRIT 40.5 % (42.0-52.0); HEMOGLOBIN 14.1 g/dl (13.5-17.5); MEAN CORPUSCULAR HEMOGLOBIN 30.7 pg (27.0-33.0); MEAN CORPUSCULAR HGB CONC 34.8 g/dl (32.0-36.5); PLATELET COUNT, AUTOMATED 135 10^3/uL (150-450); WHITE BLOOD COUNT 11.5 10^3/uL (4.0-10.0)
[2023-02-16 05:49] LABS: ALBUMIN 3.2 G/DL (3.2-5.2); ALKALINE PHOSPHATASE 65 U/L (46-116); ALT/SGPT 72 U/L (7.0-40); AST/SGOT 55 U/L (<34); BILIRUBIN,DIRECT < 0.1 MG/DL (<0.4); BILIRUBIN,TOTAL 0.2 MG/DL (0.3-1.2); BLOOD UREA NITROGEN 11 MG/DL (9-23); CALCIUM LEVEL 8.8 MG/DL (8.5-10.1); CARBON DIOXIDE LEVEL 24 MMOL/L (20-31); CHLORIDE LEVEL 107 MMOL/L (98-107); CREATININE FOR GFR 0.68 MG/DL (0.70-1.30); GLOMERULAR FILTRATION RATE > 60.0 (>56); GLUCOSE, FASTING 167 MG/DL (60-100); POTASSIUM SERUM 5.1 MMOL/L (3.5-5.1); SODIUM LEVEL 140 MMOL/L (136-145); TOTAL PROTEIN 6.4 G/DL (5.7-8.2)
[2023-02-16 05:59] VITALS: BP 135/64; O2SAT 94
[2023-02-16] MEDS: ADVAIR HFA 115/21MCG INHALER INH SCH ×2 (08:02→22:00)
[2023-02-16] MEDS: INSULIN LISPRO (NovoLOG) PER UNIT SC SCH ×4 (08:11→21:15)
[2023-02-16] MEDS: ENOXAPARIN 40MG/0.4ML SYRINGE (J1650 PER 10MG) SC SCH ×2 (08:12→21:15)
[2023-02-16] MEDS: predniSONE 20 MG TAB PO SCH (08:12)
[2023-02-16] MEDS: PANTOPRAZOLE 40MG TAB (PROTONIX) PO SCH (08:12)
[2023-02-16] MEDS: FUROSEMIDE 40 MG TAB PO SCH (08:13)
[2023-02-16] MEDS: DOCUSATE SODIUM 100MG CAPSULE PO SCH ×2 (08:26→21:00)
[2023-02-16] MEDS: PERCOCET 5MG/325MG TAB PO PRN ×2 (09:31→15:33)
[2023-02-16] MEDS: ANALGESIC BALM CRM 3OZ TOP SCH ×2 (11:16→21:16)
[2023-02-16] MEDS: REMDESIVIR 100 MG in NS 250 ML IV SCH (13:37)
[2023-02-16 14:00] VITALS: BP 143/81; TEMP 97.9; O2SAT 92
[2023-02-16 17:42] VITALS: BP 141/73
[2023-02-16 22:00] VITALS: BP 153/79; TEMP 98.4; O2SAT 90
[2023-02-16 23:52] VITALS: O2SAT 67; O2SAT 92
[2023-02-17 01:17] VITALS: O2SAT 91
[2023-02-17] MEDS: COMBIVENT RESPIMAT 100-20MCG INHALER 4GM INH SCH ×3 (01:23→14:37)
[2023-02-17 05:16] VITALS: BP 148/79; TEMP 98.6; O2SAT 91
[2023-02-17 06:00] LABS: BASO # 0.1 10^3/uL (0.0-0.2); BASO % 0.5 % (0.0-1.0); EOS # 0.2 10^3/uL (0.0-0.5); EOS % 1.3 % (0.0-3.0); HEMATOCRIT 39.5 % (42.0-52.0); LYMPH # 2.4 10^3/uL (1.5-5.0); LYMPH % 19.6 % (24.0-44.0); MEAN CORPUSCULAR HEMOGLOBIN 29.3 pg (27.0-33.0); MEAN CORPUSCULAR HGB CONC 32.9 g/dl (32.0-36.5); MEAN CORPUSCULAR VOLUME 89.2 fl (80.0-96.0); MONO # 0.8 10^3/uL (0.0-0.8); NEUTROPHILS # 8.5 10^3/uL (1.5-8.5); NEUTROPHILS % 71.1 % (36.0-66.0); PLATELET COUNT, AUTOMATED 121 10^3/uL (150-450); RED BLOOD COUNT 4.43 10^6/uL (4.30-6.10)
[2023-02-17 06:30] LABS: BLOOD UREA NITROGEN 14 MG/DL (9-23); CALCIUM LEVEL 8.5 MG/DL (8.5-10.1); CARBON DIOXIDE LEVEL 28 MMOL/L (20-31); CHLORIDE LEVEL 105 MMOL/L (98-107); GLOMERULAR FILTRATION RATE > 60.0 (>56); GLUCOSE, FASTING 143 MG/DL (60-100); POTASSIUM SERUM 3.9 MMOL/L (3.5-5.1); SODIUM LEVEL 141 MMOL/L (136-145)
[2023-02-17 07:27] LABS: ABG BASE EXCESS 3.4 (-2.0-2.0); ABG HCO3 28.2 MMOL/L (22.0-26.0); ABG O2 SATURATION 96.3 % (95.0-99.0); ABG PARTIAL PRESSURE CO2 43.4 mmHg (35.0-45.0); ABG PARTIAL PRESSURE O2 77.3 mmHg (75.0-100.0); ABG STANDARD HCO3 27.4 MMOL/L. (22.0-26.0); ABG TOTAL CO2 29.5 MMOL/L (22.0-29.0)
[2023-02-17] MEDS: ADVAIR HFA 115/21MCG INHALER INH SCH (07:34)
[2023-02-17] MEDS: DOCUSATE SODIUM 100MG CAPSULE PO SCH (09:00)
[2023-02-17] MEDS: ANALGESIC BALM CRM 3OZ TOP SCH (09:13)
[2023-02-17] MEDS: FUROSEMIDE 40 MG TAB PO SCH (09:13)
[2023-02-17] MEDS: predniSONE 20 MG TAB PO SCH (09:13)
[2023-02-17] MEDS: ENOXAPARIN 40MG/0.4ML SYRINGE (J1650 PER 10MG) SC SCH (09:13)
[2023-02-17] MEDS: PANTOPRAZOLE 40MG TAB (PROTONIX) PO SCH (09:13)
[2023-02-17] MEDS: INSULIN LISPRO (NovoLOG) PER UNIT SC SCH ×2 (09:13→12:41)
[2023-02-17 09:19] VITALS: O2SAT 93
[2023-02-17] MEDS: PERCOCET 5MG/325MG TAB PO PRN (09:19)
[2023-02-17] MEDS ORDERED: ACET1TAB55 PO (10:29)
[2023-02-17] MEDS ORDERED: PRED20TA PO ×2 (10:29→11:21)
[2023-02-17] MEDS ORDERED: ACET650T3 PO (11:23)
[2023-02-17] MEDS ORDERED: METF-838 PO (13:41)
[2023-02-17] MEDS: REMDESIVIR 100 MG in NS 250 ML IV SCH (13:46)
== END 2023-02-17 15:07 | disposition home or self-care (01) | DRG 137 ==
LOC: EDBD 18:59 → M ED 18:59 → M ED INP 02-15 02:23 → M MSPAV 02-15 03:56
PROVIDERS: ADMIT Internal Medicine; ATTEND Internal Medicine
PROC: XW033E5 Introduction of Remdesivir Anti-infective into Peripheral Vein, Percutaneous Approach, New Technology Group 5 (ICD-10-PCS; principal; 2023-02-15)
DX: U07.1 COVID-19 (principal); J44.1 Chronic obstructive pulmonary disease with (acute) exacerbation; R55 Syncope and collapse; I50.32 Chronic diastolic (congestive) heart failure; E66.2 Morbid (severe) obesity with alveolar hypoventilation; I65.29 Occlusion and stenosis of unspecified carotid artery; I25.10 Atherosclerotic heart disease of native coronary artery without angina pectoris; M10.9 Gout, unspecified; M25.552 Pain in left hip; K76.0 Fatty (change of) liver, not elsewhere classified; E11.51 Type 2 diabetes mellitus with diabetic peripheral angiopathy without gangrene; Z96.641 Presence of right artificial hip joint; I27.20 Pulmonary hypertension, unspecified; R91.8 Other nonspecific abnormal finding of lung field; S22.42XA Multiple fractures of ribs, left side, initial encounter for closed fracture; W01.0XXA Fall on same level from slipping, tripping and stumbling without subsequent striking against object, initial encounter; Y92.009 Unspecified place in unspecified non-institutional (private) residence as the place of occurrence of the external cause; Z68.43 Body mass index [BMI] 50.0-59.9, adult; R74.01 Elevation of levels of liver transaminase levels; K21.9 Gastro-esophageal reflux disease without esophagitis; Z79.84 Long term (current) use of oral hypoglycemic drugs; Z79.899 Other long term (current) drug therapy; Z88.8 Allergy status to other drugs, medicaments and biological substances; Z87.891 Personal history of nicotine dependence

== ENCOUNTER → 2023-03-12 | Outpatient (CLI) | payer OTHER ==
[~2023-03-12] MED LIST changes: +ACET1TAB55 PO; +ACET650T3 PO; +BREO1INH PO; +METF-838 PO; +TRUL10IN PO
== END ==
LOC: M EKG 10:12
PROVIDERS: ATTEND Nurse Practitioner Family
DX: Z86.79 Personal history of other diseases of the circulatory system (principal)

== ENCOUNTER → 2023-04-02 | Outpatient (REF) | payer OTHER ==
[2023-04-02 16:29] LABS: BASO # 0.1 10^3/uL (0.0-0.2); BASO % 0.8 % (0.0-1.0); EOS # 0.3 10^3/uL (0.0-0.5); EOS % 4.1 % (0.0-3.0); HEMOGLOBIN 14.2 g/dl (13.5-17.5); LYMPH # 1.6 10^3/uL (1.5-5.0); MEAN CORPUSCULAR HEMOGLOBIN 29.6 pg (27.0-33.0); MEAN CORPUSCULAR HGB CONC 33.8 g/dl (32.0-36.5); MEAN CORPUSCULAR VOLUME 87.5 fl (80.0-96.0); MONO # 0.7 10^3/uL (0.0-0.8); MONO % 8.2 % (2.0-8.0); NEUTROPHILS # 5.7 10^3/uL (1.5-8.5); NEUTROPHILS % 67.5 % (36.0-66.0); PLATELET COUNT, AUTOMATED 157 10^3/uL (150-450); WHITE BLOOD COUNT 8.4 10^3/uL (4.0-10.0)
[2023-04-02 16:46] LABS: HEMOGLOBIN A1c 6.3 % (4.0-6.0)
[2023-04-02 16:54] LABS: ALBUMIN 3.5 G/DL (3.2-5.2); BILIRUBIN,DIRECT 0.2 MG/DL (<0.4); BILIRUBIN,TOTAL 0.5 MG/DL (0.3-1.2); TOTAL PROTEIN 6.9 G/DL (5.7-8.2)
== END ==
LOC: M LAB REF 16:14
PROVIDERS: ATTEND Nurse Practitioner Family
DX: I50.9 Heart failure, unspecified (principal); E11.8 Type 2 diabetes mellitus with unspecified complications; D72.829 Elevated white blood cell count, unspecified

== ENCOUNTER → 2023-06-18 | Outpatient (REF) | payer OTHER ==
[~2023-06-18] MED LIST changes: -DOXY150C3 PO; +DOXY150C5 PO
[2023-06-18 18:47] LABS: CHOLESTEROL LEVEL 116 MG/DL (<200); CHOLESTEROL RISK RATIO 4.01 (<5); HDL CHOLESTEROL 28.9 MG/DL (>40); LDL CHOLESTEROL 61.1 MG/DL (<100); NON-HDL-C 87.1 MG/DL; TRIGLYCERIDES LEVEL 130 MG/DL (<150)
[2023-06-18 19:19] LABS: HIV 1&2 SCREEN NEGATIVE (NEGATIVE)
[2023-06-18 19:27] LABS: HEPATITIS C VIRUS ABY INDEX < 0.02 INDEX (<0.8)
[2023-06-18 19:28] LABS: HEPATITIS B CORE ANTIBODY IGM NEGATIVE (NEGATIVE)
== END ==
LOC: M LAB REF 17:11
PROVIDERS: ATTEND Nurse Practitioner Family
DX: E78.2 Mixed hyperlipidemia (principal); R74.01 Elevation of levels of liver transaminase levels

== ENCOUNTER → 2023-08-20 | Outpatient (CLI) | payer OTHER ==
[~2023-08-20] MED LIST changes: +DOXY-323 PO; -DOXY-443 PO; +ISOVUE-300 61% 100ML VIAL As Ordered ONE; +LIDOCAINE 1% MDV 20ML VIAL As Ordered ONE; -POTA10CA60 PO; +POTA10CA70 PO; +TRIAMCINOLONE ACETONIDE SUSP 40MG/ML 1ML VIAL As Ordered ONE
== END ==
LOC: M RAD 13:57
PROVIDERS: ATTEND Physician Assistant
DX: Z53.9 Procedure and treatment not carried out, unspecified reason (principal)

== ENCOUNTER → 2023-09-28 | Outpatient (CLI) | payer OTHER ==
[~2023-09-28] MED LIST changes: -ISOVUE-300 61% 100ML VIAL As Ordered ONE; -LIDOCAINE 1% MDV 20ML VIAL As Ordered ONE; -TRIAMCINOLONE ACETONIDE SUSP 40MG/ML 1ML VIAL As Ordered ONE
== END ==
LOC: M WUC 12:35
PROVIDERS: ATTEND Physician Assistant Medical
DX: M25.531 Pain in right wrist (principal)

== ENCOUNTER 2023-11-14 15:42 | Emergency (ER) | payer OTHER ==
[~2023-11-14] VITALS: Ht 175.3 cm; Wt 132.0 kg
[2023-11-14 16:30] LABS: BASO # 0.1 10^3/uL (0.0-0.2); BASO % 0.9 % (0.0-1.0); EOS # 0.3 10^3/uL (0.0-0.5); EOS % 3.3 % (0.0-3.0); HEMATOCRIT 41.3 % (42.0-52.0); HEMOGLOBIN 14.1 g/dl (13.5-17.5); LYMPH # 1.9 10^3/uL (1.5-5.0); LYMPH % 24.5 % (24.0-44.0); MEAN CORPUSCULAR HEMOGLOBIN 28.9 pg (27.0-33.0); MEAN CORPUSCULAR HGB CONC 34.1 g/dl (32.0-36.5); MEAN CORPUSCULAR VOLUME 84.6 fl (80.0-96.0); MONO # 0.8 10^3/uL (0.0-0.8); MONO % 10.5 % (2.0-8.0); NEUTROPHILS # 4.7 10^3/uL (1.5-8.5); NEUTROPHILS % 60.4 % (36.0-66.0); PLATELET COUNT, AUTOMATED 156 10^3/uL (150-450); RED BLOOD COUNT 4.88 10^6/uL (4.30-6.10); WHITE BLOOD COUNT 7.8 10^3/uL (4.0-10.0)
[2023-11-14] MEDS: ONDANSETRON 4MG 2ML VIAL IV ONE (16:50)
[2023-11-14] MEDS: KETOROLAC 30 MG/ML 1ML VIAL IV ONE (16:50)
[2023-11-14 16:58] LABS: ALBUMIN 3.2 G/DL (3.2-5.2); BILIRUBIN,DIRECT 0.1 MG/DL (<0.4); BILIRUBIN,TOTAL 0.3 MG/DL (0.3-1.2); TOTAL PROTEIN 6.3 G/DL (5.7-8.2)
[2023-11-14 19:21] VITALS: BP 126/73; TEMP 96.7; O2SAT 98
[2023-11-14] MEDS ORDERED: NAPR-837 PO (19:26)
[2023-11-14] MEDS ORDERED: METH-1165 PO (19:26)
[2023-11-14] MEDS: LIDOCAINE 5% (LIDODERM) PATCH TD ONE (19:39)
[2023-11-14] MEDS: METHOCARBAMOL 1,000 MG/10 ML VIAL IV ONE (19:39)
== END 2023-11-14 19:49 | disposition home or self-care (01) ==
LOC: M ED 15:42
DX: M54.50 Low back pain, unspecified (principal); M62.830 Muscle spasm of back; J45.909 Unspecified asthma, uncomplicated; G47.33 Obstructive sleep apnea (adult) (pediatric); E11.9 Type 2 diabetes mellitus without complications; K76.0 Fatty (change of) liver, not elsewhere classified; Z88.8 Allergy status to other drugs, medicaments and biological substances; Z79.1 Long term (current) use of non-steroidal anti-inflammatories (NSAID); Z79.4 Long term (current) use of insulin; Z79.84 Long term (current) use of oral hypoglycemic drugs; Z79.899 Other long term (current) drug therapy
CPT/HCPCS: 74176; 80047; 80076; 81001; 83690; 85025; 96374; 96375; 99284; J1885; J2405; J2800

== ENCOUNTER 2024-03-16 08:37 | Emergency (ER) | payer OTHER ==
[~2024-03-16] VITALS: Ht 175.3 cm; Wt 280.0 kg
[~2024-03-16 08:37] MED LIST changes: -ADV500INH INH; +ADVA1AER10 INH; -CYCL5TAB PO; +CYCL5TAB4 PO; -DOXY-323 PO; +DOXY-441 PO; +METH-1165 PO
[2024-03-16 08:41] VITALS: BP 148/83; TEMP 96.4; O2SAT 96
[2024-03-16 09:34] LABS: BASO # 0.1 10^3/uL (0.0-0.2); EOS # 0.4 10^3/uL (0.0-0.5); EOS % 4.1 % (0.0-3.0); HEMATOCRIT 44.2 % (42.0-52.0); HEMOGLOBIN 14.8 g/dl (13.5-17.5); LYMPH % 21.3 % (24.0-44.0); MEAN CORPUSCULAR HEMOGLOBIN 29.1 pg (27.0-33.0); MEAN CORPUSCULAR HGB CONC 33.5 g/dl (32.0-36.5); MONO # 0.9 10^3/uL (0.0-0.8); NEUTROPHILS # 6.1 10^3/uL (1.5-8.5); NEUTROPHILS % 64.2 % (36.0-66.0); PLATELET COUNT, AUTOMATED 151 10^3/uL (150-450); RED BLOOD COUNT 5.08 10^6/uL (4.30-6.10); WHITE BLOOD COUNT 9.6 10^3/uL (4.0-10.0)
[2024-03-16 10:02] LABS: ALBUMIN 3.5 G/DL (3.2-5.2); ALKALINE PHOSPHATASE 79 U/L (40-129); ALT/SGPT 22 U/L (7.0-40); AST/SGOT 16 U/L (<34); BILIRUBIN,DIRECT < 0.1 MG/DL (<0.4); BILIRUBIN,TOTAL 0.2 MG/DL (0.3-1.2); BLOOD UREA NITROGEN 17 MG/DL (9-23); CALCIUM LEVEL 9.1 MG/DL (8.5-10.1); CARBON DIOXIDE LEVEL 22 MMOL/L (20-31); CHLORIDE LEVEL 111 MMOL/L (98-107); CREATININE FOR GFR 0.77 MG/DL (0.70-1.30); GLOMERULAR FILTRATION RATE > 60.0 (>56); GLUCOSE, FASTING 121 MG/DL (60-100); POTASSIUM SERUM 3.8 MMOL/L (3.5-5.1); SODIUM LEVEL 141 MMOL/L (136-145); TOTAL PROTEIN 6.6 G/DL (5.7-8.2)
== END 2024-03-16 10:31 | disposition left against medical advice (07) ==
LOC: M ED 08:37
DX: Z53.21 Procedure and treatment not carried out due to patient leaving prior to being seen by health care provider (principal)

== ENCOUNTER → 2024-03-18 | Outpatient (REF) | payer OTHER | LOC: M LAB REF 12:54 | PROVIDERS: ATTEND Nurse Practitioner Family | DX: R19.7 Diarrhea, unspecified (principal) ==

== ENCOUNTER 2024-05-31 07:43 | Day surgery (SDC) | payer OTHER ==
[~2024-05-31] VITALS: Ht 175.3 cm; Wt 131.5 kg
[2024-05-31] MEDS ORDERED: propofoL 200 MG/20 ML VIAL As Ordered ONE (08:37)
[2024-05-31] MEDS ORDERED: LIDOCAINE 2% 100MG/5ML SDV (FOR ANES.) As Ordered ONE (08:37)
[2024-05-31 09:35] VITALS: BP 108/68; TEMP 97.3; O2SAT 97
== END 2024-05-31 09:42 | disposition home or self-care (01) ==
LOC: M OPP 07:43
PROVIDERS: ATTEND Surgery
DX: D12.3 Benign neoplasm of transverse colon (principal); K64.0 First degree hemorrhoids; R19.4 Change in bowel habit; K44.9 Diaphragmatic hernia without obstruction or gangrene; K29.70 Gastritis, unspecified, without bleeding; R19.7 Diarrhea, unspecified; G47.30 Sleep apnea, unspecified; Z88.8 Allergy status to other drugs, medicaments and biological substances; Z79.51 Long term (current) use of inhaled steroids; Z79.84 Long term (current) use of oral hypoglycemic drugs; Z79.85 Long-term (current) use of injectable non-insulin antidiabetic drugs; Z79.899 Other long term (current) drug therapy; J44.9 Chronic obstructive pulmonary disease, unspecified; Z87.891 Personal history of nicotine dependence

== ENCOUNTER → 2025-02-14 | Outpatient (CLI) | payer OTHER ==
[~2025-02-14] MED LIST changes: +LIDO1ADH93 TD; -LIDO5DIS41 TD; -PRED50TA PO; +PRED50TA57 PO
== END ==
LOC: M OUTALCOH 13:05
PROVIDERS: ATTEND Psychiatry & Neurology Psychiatry
DX: F14.20 Cocaine dependence, uncomplicated (principal); F17.200 Nicotine dependence, unspecified, uncomplicated

== ENCOUNTER → 2025-03-07 | Outpatient (RCR) | payer MEDICAID ==
[~2025-03-07] MED LIST changes: +ACET-683 PO; +OSEL75CA PO
== END ==
LOC: M OUTALCOH 02-21 10:56
PROVIDERS: ATTEND Psychiatry & Neurology Psychiatry
DX: F14.20 Cocaine dependence, uncomplicated (principal); F17.200 Nicotine dependence, unspecified, uncomplicated